=== PATIENT | female | born 1945 | race Caucasian/White ===

== ENCOUNTER 2016-06-14 08:59 | Day surgery (SDC) | payer OTHER ==
[2016-06-07 11:37] VITALS: BMI 46.0
--- NOTE | 2016-06-07 12:13 | PAT Medication Instructions ---
Service Date Jun 07, 2016. Current Home Medication List Beclomethasone Dip (Qvar), 2 PUFF INH BID Bupropion (Wellbutrin Sr), 150 MG PO QAM Cholecalciferol (Vitamin D 1000 Unit), 1,000 INTER.UNIT PO HS Docusate Sodium (Colace), 1 CAP PO BID PRN for Constipation Ipratropium [place] Hfa (Atrovent Hfa), 2 PUFFS INH Q4H PRN for SOB/Wheezing Isosorbide Mononitrate Ext Rel (Imdur Ext Rel), 60 MG PO QAM Magnesium Oxide (Mag-Ox), 400 MG PO QAM Misc Natural Products (Fiber 7), 2 TSP PO QAM Multiple Minerals W/ Vitamins (Citracal Plus), 1 TAB PO BID Multivitamin (Multivitamin), 1 TAB PO QAM Nitroglycerin (Nitrostat), 0.4 MG UT UD PRN for Chest Pain Omeprazole (Prilosec), 40 MG PO BID Trazodone Hcl (Trazodone), 50 MG PO HS Trazodone Hcl (Trazodone), 100 MG PO HS Triamterene/Hctz (Triamterene/Hctz 37.5-25MG), 0.5 TAB PO QAM Verapamil (Verelan Pm), 300 MG PO HS Vortioxetine HBr (Trintellix), 20 MG PO HS Medication Instructions For Your Scheduled Surgery - Hold the following medications the morning of surgery: Triamterene/Hctz (Triamterene/Hctz 37.5-25MG), 0.5 TAB PO QAM Multiple Minerals W/ Vitamins (Citracal Plus), 1 TAB PO BID Multivitamin (Multivitamin), 1 TAB PO QAM Misc Natural Products (Fiber 7), 2 TSP PO QAM Magnesium Oxide (Mag-Ox), 400 MG PO QAM Docusate Sodium (Colace), 1 CAP PO BID PRN for Constipation - Take the following medications the morning of surgery with a sip of water: Omeprazole (Prilosec), 40 MG PO BID Nitroglycerin (Nitrostat), 0.4 MG UT UD PRN for Chest Pain Isosorbide Mononitrate Ext Rel (Imdur Ext Rel), 60 MG PO QAM Ipratropium [place] Hfa (Atrovent Hfa), 2 PUFFS INH Q4H PRN for SOB/Wheezing Bupropion (Wellbutrin Sr), 150 MG PO QAM Beclomethasone Dip (Qvar), 2 PUFF INH BID - Take the following medications as scheduled the night before surgery: Verapamil (Verelan Pm), 300 MG PO HS Trazodone Hcl (Trazodone), 50 MG PO HS Trazodone Hcl (Trazodone), 100 MG PO HS Omeprazole (Prilosec), 40 MG PO BID Nitroglycerin (Nitrostat), 0.4 MG UT UD PRN for Chest Pain Multiple Minerals W/ Vitamins (Citracal Plus), 1 TAB PO BID Ipratropium [place] Hfa (Atrovent Hfa), 2 PUFFS INH Q4H PRN for SOB/Wheezing Docusate Sodium (Colace), 1 CAP PO BID PRN for Constipation Cholecalciferol (Vitamin D 1000 Unit), 1,000 INTER.UNIT PO HS Beclomethasone Dip (Qvar), 2 PUFF INH BID Vortioxetine HBr (Trintellix), 20 MG PO HS If you have any questions please call us at [phone] (Briana Gustafson PA-C) or [phone] or [phone]
[2016-06-07 12:41] LABS: BASO % 0.4 %; BASO ABS # 0.03 K/uL (0-0.2); COMPLETE YES; EOS % 2.2 %; HEMATOCRIT 36.1 % (37-47); IG% 0.1 %; LYMPH % 16.5 %; LYMPH ABS # 1.21 K/uL (1.2-3.4); MEAN CELL VOLUME 89.8 fL (80-100); MEAN CORPUSCULAR HEMOGLOBIN 29.9 pg (25-34); MEAN CORPUSCULAR HGB CONC 33.2 g/dl (32-36); MEAN PLATELET VOLUME 10.8 fL (7.4-10.4); MONO % 10.2 %; NEUT % 70.6 %; PLATELET COUNT 193 K/uL (130-400); RED BLOOD COUNT 4.02 M/uL (4.2-5.4); WHITE BLOOD COUNT 7.35 K/uL (4.8-10.8)
[2016-06-07 12:49] LABS: URINE APPEARANCE CLEAR (CLEAR); URINE BILIRUBIN NEG (NEG); URINE COLOR YELLOW; URINE NITRITE NEG (NEG); URINE PH 6.5 (4.5-7.5); URINE SPECIFIC GRAVITY 1.017 (1.000-1.030); UROBILINOGEN NEG (NEG)
[2016-06-07 12:53] LABS: PARTIAL THROMBOPLASTIN RATIO 1.1; PROTHROMBIN TIME (PATIENT) 10.7 SECONDS (9.0-12.0)
[2016-06-07 12:57] LABS: MANUAL MICROSCOPIC REQUIRED? NO; REVIEW REQ? NO
[2016-06-07 13:06] LABS: BUN/CREATININE RATIO 19.6 (10-20); CREATININE 0.9 mg/dl (0.60-1.20); POTASSIUM 3.6 mmol/L (3.5-5.1)
--- NOTE | 2016-06-13 18:17 | HISTORY & PHYSICAL EXAMINATION ---
DATE OF ADMISSION: 06/14/2016 SUBJECTIVE CHIEF COMPLAINT: Right foot pain. HISTORY OF PRESENT ILLNESS: This is a patient who has been treated for sometime with right foot osteoarthritis. She has been treated with shoe wear modification, bracing, activity modifications, anti-inflammatory medication and steroid injections; however, she has failed conservative management and she is now being set up for surgical treatment. PAST MEDICAL HISTORY: Coronary artery disease, asthma, hypertension, aortic valve sclerosis, depression, esophageal reflux, generalized anxiety disorder, hyperlipidemia, history of palpitations, spinal stenosis and also morbid obesity. PAST SURGICAL HISTORY: Appendectomy, back surgery, mastectomy and later breast reconstruction, cholecystectomy, knee replacement, sinus surgery and tubal ligation. FAMILY HISTORY: Noncontributory. SOCIAL HISTORY: The patient has an occasional alcohol drink. She is a former smoker. CURRENT MEDICATIONS: Qvar, Symbicort, baby aspirin, isosorbide, nitroglycerin, bupropion, trintellix, omeprazole, Citracal plus vitamin D, magnesium oxide, triamterene/HCTZ, Colace, verapamil, Mobic, multivitamin and trazodone. ALLERGIES: CELEBREX, PERCOCET, STATINS AND VENTOLIN. OBJECTIVE PHYSICAL EXAMINATION: GENERAL: The patient is alert and oriented x3. She is in no acute distress. She is a well-dressed, well-nourished 70-year-old female. Her affect is appropriate. CARDIOVASCULAR: Has an irregularly irregular heartbeat with a 1/6 systolic ejection murmur. LUNGS: Clear to auscultation bilateral with decreased breath sounds throughout. Dorsalis pedis, posterior tib pulses are +2/4. Cap refill is less than 2 seconds. LYMPHATIC: There is no evidence of any swollen lymph nodes. MUSCULOSKELETAL: The patient has an antalgic gait favoring the right lower extremity. Upon inspection of right lower extremity, there is swelling noted of the right mid foot. There is no ecchymosis, no erythema noted. There appears to be bony deformity of the mid foot on the right side. On palpation there is tenderness of the first, second and third tarsometatarsal joints. The patient has decrease in strength and range of motion secondary to pain. SKIN: There are no scars, rashes or ulcers noted. NEUROLOGIC: Sensation is normal intact distally, right lower extremity. X-RAY EXAM: Multiple views of the right foot demonstrate severe osteoarthritis of the first, second and third tarsometatarsal joints. There is also osteoarthritic changes of the first, second and third intercuneiform joints. ASSESSMENT AND DIAGNOSES: 1. Right mid foot osteoarthritis, particularly of the first, second and third tarsometatarsal joints and the first, second and third intercuneiform joints. 2. Achilles contracture. PLAN: The above assessment was discussed with the patient. At this time, it is recommended the patient undergo a right foot first, second and third tarsometatarsal joint fusions; first, second and third intercuneiform joint fusions; percutaneous tendo Achilles lengthening and application of platelet rich plasma. All potential risks, benefits, complications, alternatives and rehab have been discussed with the patient. At this time, she wishes to proceed with the surgery as indicated and she will be scheduled for the surgery on 06/14/2016. AZALEA
[~2016-06-14] VITALS: Ht 142.2 cm; Wt 95.3 kg
[~2016-06-14 08:59] MED LIST: ATROPINE SULFATE 0.1 MG/ML 5ML SYR IV PRN; BUPIVACAINE 0.25% 30 ML VIAL ONE; BUPR-79 PO; CEFAZOLIN 2000 MG/60 ML D5W IV SCH; CHOL100027 PO; DOCU-94 PO; EpHEDrine SULFATE INJ 50 MG/ML AMP IV PRN; IPRA17AE2 INH; ISOS60TA25 PO; LACTATED RINGER'S 1000ML 1,000 ML IV SCH; MAGN400T5 PO; MULT-506 PO; MULT-663 PO; NTRGSL/4 UT; OMEP40CA41 PO; ONDANSETRON INJ 2 MG/ML 2 ML VIAL IV PRN; QVRINH40 INH; TRAZ100T29 PO; TRAZ50TA35 PO; TRIATAB3 PO; VERA1CAP7 PO; VORT1TAB3 PO; [UNRECOGNIZED DRUG - CODE] PO
[2016-06-14 09:16] VITALS: BP 136/57; PULSE 60; TEMP 36.3; O2SAT 96; Ht 142.2 cm; Wt 95.3 kg
[2016-06-14] MEDS ORDERED: FENTANYL CITRATE INJ 50 MCG/1 ML 2 ML VIAL ONE (09:33)
[2016-06-14] MEDS ORDERED: NEOSTIGMINE METHYLSULFATE 5 MG/5 ML SYR ONE (09:33)
[2016-06-14] MEDS ORDERED: PROPOFOL IV EMULSION 10 MG/ML 20 ML VIAL IV ONE (09:33)
[2016-06-14] MEDS ORDERED: GLYCOPYRROLATE INJ 0.2 MG/ML VIAL ONE ×2 (09:33→12:59)
[2016-06-14] MEDS ORDERED: ONDANSETRON INJ 2 MG/ML 2 ML VIAL ONE (09:33)
[2016-06-14] MEDS ORDERED: MIDAZOLAM HCL 1 MG/ML 2ML VIAL ONE (09:33)
[2016-06-14] MEDS ORDERED: LIDOCAINE HCL 2% 2 ML VIAL (20MG/ML) ONE (09:33)
[2016-06-14] MEDS ORDERED: ROCURONIUM BROMIDE 10 MG/ML 5 ML VIAL ONE (09:33)
--- NOTE | 2016-06-14 10:43 | History & Physical Bridge Note ---
H&P Re-Evaluation Bridge Note: I have examined the patient, reviewed the History & Physical and in the interval since the performance of the History & Physical I have noted the following changes of clinical significance: No changes noted
[2016-06-14] MEDS ORDERED: BACITRACIN 50000 UNIT VIAL ONE (11:16)
[2016-06-14] MEDS ORDERED: BUPIVACAINE/EPINEPHRINE 0.5% MPF 1:200,000 30 ML VIAL ONE (11:16)
[2016-06-14] MEDS ORDERED: BUPIVACAINE 0.5 % 5 MG/1 ML MPF 30ML VIAL ONE (11:16)
[2016-06-14] MEDS ORDERED: CALCIUM CHLORIDE 10% 10 ML SYR ONE (12:20)
[2016-06-14] MEDS ORDERED: THROMBIN 5000 UNITS KIT ONE (12:20)
[2016-06-14] MEDS ORDERED: HYDROmorphone INJ 1 MG/ML SYR ONE ×2 (14:53→15:09)
[2016-06-14] MEDS: HYDROmorphone INJ 1 MG/ML SYR IV PRN ×4 (14:58→15:20)
--- NOTE | 2016-06-14 15:02 | DIAGNOSTIC IMAGING REPORT ---
INTRAOPERATIVE FLUOROSCOPIC IMAGES OF THE RIGHT FOOT CLINICAL HISTORY: Right first, second and third fusion. COMPARISON STUDY: No previous studies for comparison. Fluoroscopy time: 40 seconds. FINDINGS: Skin jessica overlying the Achilles are noted. There is evidence for a right fifth metatarsal osteotomy with screw fixation. This may be old. There is a medial plate extending across the right first tarsometatarsal joint. There is fusion of the right first, second and third tarsometatarsal joints. Hardware is intact. There are no unexpected radiopaque foreign bodies. IMPRESSION: Postsurgical findings consistent with fusion of the right first, second and third tarsometatarsal joints. Electronically signed by: Pio Ospina M.D. 06/14/2016 3:00 PM Dictated Date/Time: 06/14/2016 2:58 PM
--- NOTE | 2016-06-14 15:03 | [facility] Post Operative Brief Note ---
Immediate Operative Summary Operative Date Jun 14, 2016. Pre-Operative Diagnosis 1. Right mid foot DJD of the first, second and third tarsometatarsal joints. 2. DJD of first, second and third intercuneiform joint 2. Achilles contracture Post-Operative Diagnosis Same as pre-operative Procedure(s) Performed Right foot 1,2,3 Tarsometatarsal Joint Fusions; 1,2,3 Intercuneiform Joint Fusions; Percutaneous Tendon Achilles Lenghtening; Application Platelet Rich Plasma Surgeon Dr. Fransico Garcia, DO Hogshead Stripper Surgeon(s) Dane Mata PA-C Estimated Blood Loss 10ml Findings See Dict Specimens None per surgeon Drains None Anesthesia GLMA w/ popliteal block Complication(s) None Disposition Recovery Room / PACU
--- NOTE | 2016-06-14 15:07 | Anesthesiology Progress Note ---
Anesthesia Post Op Note Date & Time Jun 14, 2016 at 15:07 Vital Signs Pain Intensity: 6 Vital Signs Past 12 Hours Date Time Temp Pulse Resp B/P Pulse Ox O2 Delivery O2 Flow Rate FiO2 06/14/16 09:16 36.3 60 20 136/57 96 Room Air Notes Mental Status: alert / awake / arousable, participated in evaluation Pt Amnestic to Procedure: Yes Nausea / Vomiting: adequately controlled Pain: adequately controlled Airway Patency, RR, SpO2: stable & adequate BP & HR: stable & adequate Hydration State: stable & adequate Anesthetic Complications: no major complications apparent
--- NOTE | 2016-06-14 15:10 | Discharge Instructions ---
Discharge Instructions Admission Reason for Admission: Right Ankle/Foot Osteoarthritis Discharge Discharge Diagnosis / Problem: Right midfoot DJD, achilles contracture Discharge Goals Goal(s): Decrease discomfort, Improve function Activity Recommendations Activity Limitations: per Instructions/Follow-up section . Instructions / Follow-Up Instructions / Follow-Up ACTIVITY RECOMMENDATIONS: Limitations: No weight bearing to affected limb at all times. SPECIAL CARE INSTRUCTIONS: * Some drainage onto the dressing is normal and is no cause for alarm. * Some swelling is natural especially after walking. * When resting, keep your foot elevated above the level of your heart. * Call [facility] if you notice: -Increased drainage -Fever over 101 degrees F -Severe constant pain BANDAGE: * Leave bandage/cast in place unless otherwise directed. * Keep bandage/cast dry at all times. FOLLOW UP VISIT WITH DR. VELOZ If appointment is not already scheduled: Please call [facility] after you get home today to schedule a follow-up appointment for [address] Veloz at . Current Hospital Diet Patient's current hospital diet: Discharge Diet Recommended Diet: AHA Diet (Heart Healthy) Procedures Procedures Performed: Right foot 1,2,3 Tarsometatarsal Joint Fusions; 1,2,3 Intercuneiform Joint Fusions; Percutaneous Tendon Achilles Lenghtening; Application Platelet Rich Plasma Pending Studies Studies pending at discharge: no Medical Emergencies . Who to Call and When: Medical Emergencies: If at any time you feel your situation is an emergency, please call 911 immediately. . Non-Emergent Contact Non-Emergency issues call your: Primary Care Provider Call Non-Emergent contact if: temperature is above 100.5, your pain is not controlled, wound has increased drainage, wound has increased redness, wound has increased pain . "Provider Documentation" section prepared by Fransico Veloz. VTE Core Measure Inpt VTE Proph given/why not?: Other Anticoagulation (EC ASA 81mg PO daily)
[2016-06-14] MEDS ORDERED: HYDROCODONE/ACETAMOPHEN 5/325MG TAB PO PRN (15:15)
--- NOTE | 2016-06-14 15:35 | DIAGNOSTIC IMAGING REPORT ---
RIGHT FOOT MIN 3 VIEWS ROUTINE CLINICAL HISTORY: post-op Right COMPARISON STUDY: Right foot 06/14/2016. FINDINGS: Overlying splint material obscures the majority foot. There are cortical plates, jessica and screws across the first through third tarsometatarsal joints. There is also screw through an old healed fracture of the right fifth metatarsal. The hardware appears intact. IMPRESSION: Postoperative changes at the tarsometatarsal joint. The hardware appears intact. Electronically signed by: Mihir Mcneill M.D. 06/14/2016 3:34 PM Dictated Date/Time: 06/14/2016 3:33 PM
[2016-06-14 15:47] VITALS: BP 133/69; PULSE 64; TEMP 36.7; O2SAT 98
[2016-06-14 16:15] VITALS: BP 143/65; PULSE 74; O2SAT 97
[2016-06-14 16:45] VITALS: BP 142/64; PULSE 63; TEMP 36.7; O2SAT 96
--- NOTE | 2016-06-14 17:13 | OPERATIVE REPORT ---
DATE OF OPERATION: 06/14/2016 PREOPERATIVE DIAGNOSES: 1. Right mid foot degenerative joint disease involving the first, second and third tarsometatarsal joints. 2. Degenerative joint disease of the first, second and third intercuneiform joints. 3. Achilles contracture. POSTOPERATIVE DIAGNOSES: Same. PROCEDURES: 1. Right foot fusion of the first, second, and third tarsometatarsal joints. 2. Fusion of first, second and third intercuneiform joints. 3. Percutaneous tendon Achilles lengthening. 4. Application platelet rich plasma concentrate. SURGEON: Dr. Garcia. MACHINE BANDER AND CELLOPHANER: Dane Mata PA-C who was present for patient positioning, sterile prep and drape, management of retractors and instruments. He was present through the critical portions of the case including wound closure, application of sterile dressing and transport of the patient to recovery. ANESTHESIA: General LMA with popliteal block. SPECIMENS: None. DRAINS: None. COMPLICATIONS: None. BLOOD LOSS: 10 mL. PERTINENT HISTORY OF PRESENT ILLNESS: This is a 70-year-old woman who had ongoing pain and deformity of her right foot. This has been treated with shoewear modification, bracing, activity modifications, anti-inflammatory medications, and steroid injections. She had failed conservative management and was then scheduled for surgery as indicated. All potential risks, benefits, complications, alternatives, rehab, potential for incomplete relief of symptoms, need for further surgery, DVT, PE, , persistent pain, swelling, scarring, weakness, neurovascular injury, wound complications, hardware failure, nonunion, malunion or bone fracture were discussed with the patient. The patient decided to proceed with the procedure as indicated. DESCRIPTION OF PROCEDURE: After popliteal block was administered in the preop holding area, the patient was taken to the operative suite, placed supine on the operating room table. After reviewing consent and identification of proper operative site, the patient was anesthetized, LMA was placed. Tourniquet was placed high on the right thigh over cast padding; however, this pneumatic tourniquet was not used during the case. Next, the right lower extremity was then sterilely prepped and draped in usual fashion, elevated and exsanguinated with Esmarch bandage. Esmarch tourniquet was applied over sterile surgical towel at the level of the ankle. Next, the foot was held in neutral dorsiflexion and percutaneous tendo Achilles lengthening was performed with an 11 blade scalpel. Three small percutaneous incisions were closed with a skin stapler. Next, a 15 blade scalpel was used to make an incision over the dorsal medial aspect of the first tarsometatarsal joint. This incision was then deepened through the subcutaneous tissue. Meticulous hemostasis was achieved with electrocautery. Full thickness skin flaps were developed. The branch of the saphenous vein was then retracted and protected. The capsule of the first tarsometatarsal joint was then opened and elevated, preserved when possible. Next, the articular surfaces were then denuded with curette and rongeur down to subchondral bone and then a 1.5 mm drill bit was then used to make multiple drill holes into the joint surfaces, was irrigated with sterile normal saline and a 4 mm osteotome and mallet were used to fish scale the joint surfaces. Next, the first intercuneiform joint was then opened with a 15 blade scalpel and a curette and rongeur were used to remove any residual articular cartilage down to subchondral bone. This was irrigated with sterile normal saline and then drilled with a 1.5 mm drill bit and then fish scaled with a 4 mm osteotome and mallet. Next, an incision was made on the dorsum of the foot to the base of the second and third tarsometatarsal joints. This incision was then deepened through the subcutaneous tissue and meticulous hemostasis was achieved with electrocautery. Full thickness skin flaps developed and the dorsal fascia was then incised in line with the skin incision, retracted, and protected. Next, the extensor tendons were then retracted and protected. Next, the second tarsometatarsal joint was then identified and then opened with a small lamina hardboard factory worker. Curette and rongeur were used to remove any of the remaining articular cartilage down to the level of subchondral bone. This joint was then prepared for further with irrigation and then drilling with a 1.5 mm drill bit and fish scaling with a 4.0 mm osteotome and mallet. Next, the third tarsometatarsal joint was then opened with a cervical lamina hardboard factory worker and the joint surfaces were then prepared by removing any of the residual articular cartilage with curette and rongeur down to subchondral bone and this joint was then irrigated with sterile normal saline. Next, a 1.5 mm drill bit was then used to make multiple drill holes in the joint and then the joint was then fish scaled using a 4.0 mm osteotome and mallet. Next, the joint between the second and third cuneiforms was then opened and then repaired in a similar fashion using a curette and rongeur down to subchondral bone, irrigation of sterile normal saline, multiple drill holes were made with a 1.5 mm drill bit and then the joint was then fish scaled with a osteotome and mallet. Next, the venous blood was then harvested from the patient and spun in a proprietary centrifuge and then the platelet rich plasma concentrate was then extracted. At this point, platelet rich plasma concentrate was then injected onto the joint surfaces of the planned joint effusions of the first, second and third tarsometatarsal joints and the first, second and third intercuneiform joints. Next, the joints to be fused were then compressed and pinned with a 1.25 mm guide pins particularly the first, second and third tarsometatarsal joints and then one heading from medial to lateral across the inner cuneiforms. Next, a 4.0 cannulated screws were placed crossing the first, second and third tarsometatarsal joints and a fourth screw was placed crossing the first, second and third cuneiform bones under live fluoroscopic assistance. Next, a medially based first tarsometatarsal joint fusion plate was applied, tacked in place provisionally, the distal locking screws were placed into the first metatarsal base, the plate was then compressed using compression tool and then the proximal screws were placed in a locking fashion. The joint was compressed and well aligned. This was performed under live fluoroscopic assistance. After this was completed, next two 15 mm Synthes jessica were placed through the dorsal incision first the second tarsometatarsal joint and after this was impacted in place to stabilize and compress the second tarsometatarsal joint, a similar 15 mm compression staple was placed on the third tarsometatarsal joint impacted in place with a mallet and insertion tool. After this was completed, mid foot fusion was completed, final x-rays obtained in AP and lateral projections followed by injection of further platelet rich plasma concentrate at the fusion site and in the dorsal soft tissue. Next, the medial soft tissues then closed using 3-0 Vicryl, deep soft tissues dorsally were closed using 3-0 Vicryl, the dermis was closed using buried interrupted 3-0 Vicryl in both incisions followed by closure of the skin with 4-0 nylon. The remainder of the platelet rich plasma and then the platelet poor plasma was injected along the incision sites to aid in soft tissue healing. Next, the sterile compressive dressing was applied consisting of Acticoat, sterile 4 x 4s, and then a Webril followed by placement of a bulky Jon Salas plaster splint placed in neutral dorsiflexion and overwrapped with an Dominic wrap. The tourniquet was then released. The patient was awakened and taken to recovery in stable condition. I attest to the content of the Intraoperative Record and any orders documented therein. Any exceptions are noted below. MTDD
[2016-10-03] MEDS ORDERED: BRIO INH (08:21)
[2016-10-03] MEDS ORDERED: CLR10 PO (08:21)
[2016-10-03] MEDS ORDERED: QUET1TAB30 PO (08:21)
[2016-11-07] MEDS ORDERED: MONT1TAB3 PO (09:31)
== END 2016-06-14 17:27 | disposition home or self-care (01) ==
LOC: C.ACU 08:59
PROVIDERS: ATTEND Orthopaedic Surgery Sports Medicine
DX: M19.071 Primary osteoarthritis, right ankle and foot (principal); M67.01 Short Achilles tendon (acquired), right ankle; Z87.891 Personal history of nicotine dependence; Z79.899 Other long term (current) drug therapy; M79.671 Pain in right foot; I10 Essential (primary) hypertension; I25.10 Atherosclerotic heart disease of native coronary artery without angina pectoris
CPT/HCPCS: 0232T; 27650; 28730

== ENCOUNTER 2016-09-05 12:28 | Observation (INO) | payer OTHER ==
[~2016-09-05] VITALS: Ht 147.3 cm; Wt 89.0 kg
[~2016-09-05 12:28] MED LIST changes: -ATROPINE SULFATE 0.1 MG/ML 5ML SYR IV PRN; -BUPIVACAINE 0.25% 30 ML VIAL ONE; -CEFAZOLIN 2000 MG/60 ML D5W IV SCH; -EpHEDrine SULFATE INJ 50 MG/ML AMP IV PRN; -LACTATED RINGER'S 1000ML 1,000 ML IV SCH; -ONDANSETRON INJ 2 MG/ML 2 ML VIAL IV PRN
[2016-09-05] MEDS ORDERED: ONDANSETRON INJ 2 MG/ML 2 ML VIAL IV STA (12:52)
[2016-09-05] MEDS ORDERED: SODIUM CHLORIDE 0.9% 1000ML 1,000 ML IV STA (12:52)
[2016-09-05] MEDS ORDERED: SODIUM CHLORIDE 0.9% 1000ML 1,000 ML IV ONE (12:52)
[2016-09-05] MEDS ORDERED: SYMIN160 INH (13:14)
[2016-09-05] MEDS ORDERED: ASPI81TA28 PO (13:14)
[2016-09-05] MEDS ORDERED: ATRIN INH (13:14)
[2016-09-05] MEDS ORDERED: DOXY-300 PO (13:14)
--- NOTE | 2016-09-05 13:15 | DIAGNOSTIC IMAGING REPORT ---
CHEST ONE VIEW PORTABLE CLINICAL HISTORY: CHEST PAIN dyspnea COMPARISON STUDY: 08/06/2015 FINDINGS: The bones soft tissues and hemidiaphragms are normal. The cardiomediastinal silhouette is normal. The lungs are clear. The pulmonary vasculature is normal. IMPRESSION: Negative chest. Electronically signed by: Cirilo Edwards M.D. 09/05/2016 1:14 PM Dictated Date/Time: 09/05/2016 1:13 PM
[2016-09-05 13:30] LABS: BASO % 0.4 %; BASO ABS # 0.03 K/uL (0-0.2); COMPLETE YES; EOS % 1.7 %; HEMATOCRIT 41.4 % (37-47); IG% 0.3 %; LYMPH % 20.8 %; MEAN CELL VOLUME 89.8 fL (80-100); MEAN CORPUSCULAR HEMOGLOBIN 29.7 pg (25-34); MEAN CORPUSCULAR HGB CONC 33.1 g/dl (32-36); MEAN PLATELET VOLUME 10.6 fL (7.4-10.4); MONO % 7.2 %; NEUT % 69.6 %; PLATELET COUNT 222 K/uL (130-400); RED BLOOD COUNT 4.61 M/uL (4.2-5.4); WHITE BLOOD COUNT 7.22 K/uL (4.8-10.8)
[2016-09-05 13:47] LABS: BUN/CREATININE RATIO 20.4 (10-20); CALCIUM 9.2 mg/dl (8.5-10.1); CREATININE 0.86 mg/dl (0.60-1.20); POTASSIUM 3.7 mmol/L (3.5-5.1)
[2016-09-05 13:53] LABS: CKMB/CK RATIO 0.9 (0-3.0)
[2016-09-05] MEDS ORDERED: ASPIRIN 81 MG CHEW PO STA (14:30)
[2016-09-05] MEDS ORDERED: MoRPHine SULFATE 2 MG/ML CARP IV PRN (16:00)
[2016-09-05] MEDS ORDERED: POLYETHYLENE (MIRALAX) 17 GM PACK PO PRN (16:00)
[2016-09-05] MEDS ORDERED: ALUMINUM/MAGNESIUM/SIMETH (MAALOX MAX) 30 ML UDC PO PRN (16:00)
[2016-09-05] MEDS ORDERED: NITROGLYCERIN 0.4 MG SL PER TAB CHARGE SL PRN (16:00)
[2016-09-05] MEDS ORDERED: IPRATROPIUM BROMIDE HFA INHALER INH PRN (16:00)
[2016-09-05] MEDS ORDERED: ONDANSETRON INJ 2 MG/ML 2 ML VIAL IV PRN (16:00)
[2016-09-05] MEDS ORDERED: ACETAMINOPHEN 325 MG TAB PO PRN (16:00)
[2016-09-05] MEDS ORDERED: MAGNESIUM HYDROXIDE SUSP 30 ML UDC PO PRN (16:00)
[2016-09-05] MEDS ORDERED: IV FLUIDS COMPLETED PRN (16:15)
--- NOTE | 2016-09-05 16:19 | Medical Student: [facility] ---
Med Student History & Physical Date & Time of Service: September 05, 2016 at 15:55 Chief Complaint: Throwing Up - Pain Down My Arms Primary Care Physician: Meena Oleary M.D. History of Present Illness Source: patient, family, hospital records This is a 71 year old female who presents to the emergency room following an episode of nausea and vomiting this morning with accompanying bilateral arm pain. The nausea and vomiting began this morning as she was getting out of the shower, around 0830. She reports that she had not eaten anything and was not exerting herself. This lasted for an hour, during which she was retching and regurgitated mostly saliva and phlegm, with no stomach contents visible. The pain in her arms which began shortly after the onset of nausea was bilateral and she described it as a "vice flue lining dipper" which radiated down her arms. This pain lasted for several hours and still persists in her right arm but to a lesser degree. She also had a brief episode of chest tightness en route to the hospital , which she says is similar to past episodes of angina she has experienced. This resolved within minutes. She did not take any medications to relieve any of her symptoms. She also denies any exacerbating factors. She denies shortness of breath, sweating. No other symptoms to report. Past Medical/Surgical History Medical Problems: Prinzmetal angina Depression HTN GERD Asthma Surgical hx: Cholecystectomy Ectopic removal Bilateral knee replacements Foot surgery Low back surgery Family History Father: coronary artery disease, heart disease Mother: no pertinent history Sibling(s): no pertinent history Grandfather: no pertinent history Grandmother: diabetes Social History Smoking Status: Former Smoker (quit 30 years ago) Smokeless Tobacco Use: No Alcohol Use: rarely Drug Use: none Marital Status: Housing status: lives alone Occupational Status: employed Immunizations History of Influenza Vaccine: Yes History of Tetanus Vaccine?: Yes History of Pneumococcal: No History of Hepatitis B Vaccine: Yes Allergies Coded Allergies: Adhesives (Unverified Allergy, Unknown, SOME TAPE BLISTERS-PAPER TAPE OK, 06/14/16) Celecoxib (Verified Allergy, Unknown, RASH,SWOLLEN FEET/HANDS, 06/14/16) Oxycodone (Verified Adverse Reaction, Severe, GI SYMPTOMS, 06/14/16) Rosuvastatin (Verified Adverse Reaction, Severe, MUSCLE PAIN/ABNORMAL LABS , 06/14/16) Albuterol (Verified Adverse Reaction, Unknown, CHEST PAIN, 06/14/16) Medications Aspirin (Aspirin Ec), 81 MG PO DAILY Budesonide/Formoterol Fumarate (Symbicort 160/4.5 Inhaler ), 2 PUFFS INH BID Bupropion (Wellbutrin Sr), 150 MG PO QAM Cholecalciferol (Vitamin D 1000 Unit), 1,000 INTER.UNIT PO HS Docusate Sodium (Colace), 1 CAP PO BID PRN for Constipation Doxycycline (Monohydrate) (Doxycycline), 100 MG PO BID Ipratropium Branch (Atrovent Hfa), 2 PUFFS INH QID PRN for SOB/Wheezing Isosorbide Mononitrate Ext Rel (Imdur Ext Rel), 60 MG PO QAM Magnesium Oxide (Mag-Ox), 400 MG PO QAM Multiple Minerals W/ Vitamins (Citracal Plus), 1 TAB PO BID Multivitamin (Multivitamin), 1 TAB PO QAM Nitroglycerin (Nitrostat), 0.4 MG UT UD PRN for Chest Pain Omeprazole (Prilosec), 40 MG PO BID Trazodone Hcl (Trazodone), 50 MG PO HS Trazodone Hcl (Trazodone), 100 MG PO HS Triamterene/Hctz (Triamterene/Hctz 37.5-25MG), 0.5 TAB PO QAM Verapamil (Verelan Pm), 300 MG PO HS Vortioxetine HBr (Trintellix), 20 MG PO HS Review of Systems Constitutional: No chills, No fever, No sweats Eyes: No worsening of vision ENT: No hearing loss Respiratory: + cough, + wheezing Cardiovascular: + chest pain, + edema (non-pitting worse at end of day), No orthopnea Abdomen: + nausea, + vomiting, No pain Genitourinary - Female: No dysuria, No urinary frequency, No urinary urgency Neurologic: No numbness/tingling, No weakness Psychiatric: + depression symptoms Endocrine: No excessive urination Hematologic / Lymphatic: No night sweats Integumentary: No new/changing skin lesions Physical Exam Vital Signs (24 Hours) Date Time Temp Pulse Resp B/P Pulse Ox O2 Delivery O2 Flow Rate FiO2 09/05/16 14:46 57 18 178/85 95 09/05/16 12:42 36.6 78 22 149/76 95 Room Air General Appearance: WD/WN, no apparent distress Head: normocephalic, atraumatic Eyes: normal inspection ENT: hearing grossly normal, pharynx normal Neck: supple, no adenopathy, no JVD Respiratory/Chest: chest non-tender, lungs clear, normal breath sounds Cardiovascular: regular rate, rhythm, no edema, no gallop, + systolic murmur ( II/ systolic murmur) Abdomen/GI: normal bowel sounds, non tender, soft, no organomegaly Extremities/Musculoskelatal: no calf tenderness, + pedal edema (non-pitting of lower extremity) Neurologic/Psych: alert, oriented x 3 Skin: normal color, no rash Diagnostics Laboratory Results Results Past 24 Hours Test 09/05/16 12:52 09/05/16 13:15 09/05/16 13:22 Range/Units Creatine Kinase MB Ratio 0.9 0-3.0 White Blood Count 7.22 4.8-10.8 K/uL Red Blood Count 4.61 4.2-5.4 M/uL Hemoglobin 13.7 12.0-16.0 g/dL Hematocrit 41.4 37-47 % Mean Corpuscular Volume 89.8 80-100 fL Mean Corpuscular Hemoglobin 29.7 25-34 pg Mean Corpuscular Hemoglobin Concent 33.1 32-36 g/dl Platelet Count 222 130-400 K/uL Mean Platelet Volume 10.6 7.4-10.4 fL Neutrophils (%) (Auto) 69.6 % Lymphocytes (%) (Auto) 20.8 % Monocytes (%) (Auto) 7.2 % Eosinophils (%) (Auto) 1.7 % Basophils (%) (Auto) 0.4 % Neutrophils # (Auto) 5.03 1.4-6.5 K/uL Lymphocytes # (Auto) 1.50 1.2-3.4 K/uL Monocytes # (Auto) 0.52 0.11-0.59 K/uL Eosinophils # (Auto) 0.12 0-0.5 K/uL Basophils # (Auto) 0.03 0-0.2 K/uL RDW Standard Deviation 44.5 36.4-46.3 fL RDW Coefficient of Variation 13.5 11.5-14.5 % Immature Granulocyte % (Auto) 0.3 % Immature Granulocyte # (Auto) 0.02 0.00-0.02 K/uL Sodium Level 143 136-145 mmol/L Potassium Level 3.7 3.5-5.1 mmol/L Chloride Level 107 98-107 mmol/L Carbon Dioxide Level 32 21-32 mmol/L Anion Gap 4.0 3-11 mmol/L Blood Urea Nitrogen 18 7-18 mg/dl Creatinine 0.86 0.60-1.20 mg/dl Est Creatinine Clear Calc Drug Dose 55.0 ml/min Estimated GFR () 79.3 Estimated GFR (Non- 68.4 BUN/Creatinine Ratio 20.4 10-20 Random Glucose 100 70-99 mg/dl Calcium Level 9.2 8.5-10.1 mg/dl Total Bilirubin 0.4 0.2-1 mg/dl Direct Bilirubin 0.1 0-0.2 mg/dl Aspartate Amino Transf (AST/SGOT) 14 15-37 U/L Alanine Aminotransferase (ALT/SGPT) 18 12-78 U/L Alkaline Phosphatase 128 45-117 U/L Total Creatine Kinase 79 26-192 U/L Creatine Kinase MB 0.7 0.5-3.6 ng/ml Total Protein 7.2 6.4-8.2 gm/dl Albumin 3.7 3.4-5.0 gm/dl Lipase 176 73-393 U/L Bedside Troponin I 0.010 0-0.045 ng/ml CXR normal EKG 1st degree AV block with non-specific ST abnormalities. No acute changes noted. No prior EKG available Impression Assessment and Plan This is a 71 yo female who presents with nausea, vomiting, and bilateral squeezing arm pain concerning for cardiac causes. 1. Possible ACS: -Initial trops negative. Repeat in 6 hours and again in 12. -EKG shows no ST elevations or acute changes -CXR normal -Continue ASA 81 mg po daily -Continue home BP meds -Admit to telemetry for overnight observation -Consider exercise stress test tomorrow if trops all negative 2. GERD: -Pantoprazole 40 mg po daily 3. HTN: -Continue triamterene/HCTZ at home dose -Continue verapamil at home dose 4. Depression: -Continue Trintellix at home dose -Continue Wellbutrin at home dose -Continue trazodone for sleep 5. Asthma: -Continue home inhaler regimen -D/c doxycycline 6. DVT prophylaxis: -Heparin 5000 units subq q8h Level of Care Telemetry Resuscitation Status FULL RESUSCITATION Social Service Consult None Apply Note Total Time: Critical Care 30 - 74 minutes
[2016-09-05] MEDS ORDERED: DOCUSATE SODIUM 100 MG CAP PO PRN (16:30)
--- NOTE | 2016-09-05 16:31 | History and Physical ---
History & Physical Date & Time of Service: September 05, 2016 at 16:16 Chief Complaint: Throwing Up - Pain Down My Arms Primary Care Physician: Meena Oleary M.D. History of Present Illness Source: patient 71 year old female with history of Angina. Last heart cath 2010 nonocclusive CAD. Last stress test 07/2015. former smoker. Presented to ED with complaints of nausea, bilateral crushing arm pain and chest pressure. Started with nausea this am which progressed to bilateral crushing arm pain equal bilaterally. On route to ED started with chest pressure. No radiation of symptoms. No diaphoresis. No radiation of symptoms. No fever or chills. Was started on Doxycycline on Friday for poorly controlled asthma. Was on different antibiotic and steroids before that. EKG showed NSR with no significant ST changes. Chest X -ray clear. Initial Trop normal. Will be placed under hospitalist service. Past Medical/Surgical History Medical Problems: (1) Hypertension Status: Chronic Surgical Problems: (1) H/O laminectomy Status: Resolved (2) S/P knee replacement Status: Resolved Family History Cancer Diabetes mellitus Gallbladder disease Heart disease Hypertension Lung disease Social History Smoking Status: Former Smoker Alcohol Use: none Drug Use: none Marital Status: Occupational Status: employed Immunizations History of Influenza Vaccine: Yes History of Tetanus Vaccine?: Yes History of Pneumococcal: No History of Hepatitis B Vaccine: Yes Allergies Coded Allergies: Adhesives (Unverified Allergy, Unknown, SOME TAPE BLISTERS-PAPER TAPE OK, 06/14/16) Celecoxib (Verified Allergy, Unknown, RASH,SWOLLEN FEET/HANDS, 06/14/16) Oxycodone (Verified Adverse Reaction, Severe, GI SYMPTOMS, 06/14/16) Rosuvastatin (Verified Adverse Reaction, Severe, MUSCLE PAIN/ABNORMAL LABS , 06/14/16) Albuterol (Verified Adverse Reaction, Unknown, CHEST PAIN, 06/14/16) Home Medications Scheduled Aspirin (Aspirin Ec), 81 MG PO DAILY Budesonide/Formoterol Fumarate (Symbicort 160/4.5 Inhaler ), 2 PUFFS INH BID Bupropion (Wellbutrin Sr), 150 MG PO QAM Cholecalciferol (Vitamin D 1000 Unit), 1,000 INTER.UNIT PO HS Doxycycline (Monohydrate) (Doxycycline), 100 MG PO BID Isosorbide Mononitrate Ext Rel (Imdur Ext Rel), 60 MG PO QAM Magnesium Oxide (Mag-Ox), 400 MG PO QAM Multiple Minerals W/ Vitamins (Citracal Plus), 1 TAB PO BID Multivitamin (Multivitamin), 1 TAB PO QAM Omeprazole (Prilosec), 40 MG PO BID Trazodone Hcl (Trazodone), 50 MG PO HS Trazodone Hcl (Trazodone), 100 MG PO HS Triamterene/Hctz (Triamterene/Hctz 37.5-25MG), 0.5 TAB PO QAM Verapamil (Verelan Pm), 300 MG PO HS Vortioxetine HBr (Trintellix), 20 MG PO HS Scheduled PRN Docusate Sodium (Colace), 1 CAP PO BID PRN for Constipation Ipratropium Kaplan (Atrovent Hfa), 2 PUFFS INH QID PRN for SOB/Wheezing Nitroglycerin (Nitrostat), 0.4 MG UT UD PRN for Chest Pain Review of Systems Constitutional: No chills, No fatigue, No fever, No problem reported, No sweats , No weakness, No weight loss Eyes: No diplopia, No discharge, No eye pain, No problem reported, No redness, No worsening of vision ENT: No dental problems, No hearing loss, No nasal symptoms, No problem reported, No sore throat, No tinnitus, No trouble swallowing, No unusual epistaxis Respiratory: No cough, No dyspnea at rest, No dyspnea on exertion, No hemoptysis, No problem reported, No shortness of breath, No sputum, No wheezing Cardiovascular: + chest pain, No PND, No claudication, No edema, No orthopnea, No palpitations, No problem reported Abdomen: + nausea, No GI bleeding, No constipation, No diarrhea, No pain, No problem reported, No vomiting Musculoskeletal: No calf pain, No joint pain, No muscle pain, No problem reported, No swelling Genitourinary - Female: No dysmenorrhea, No dysuria, No hematuria, No menorrhagia, No metrorrhagia, No , No problem reported, No rash, No urinary frequency, No urinary incontinence, No urinary retention, No urinary urgency, No vaginal bleeding, No vaginal discharge, No vaginal itching, No vulvodynia Neurologic: No balance problems, No memory loss, No numbness/tingling, No paralysis, No problem reported, No vertigo, No weakness Psychiatric: No anhedonism, No anxiety, No depression symptoms, No insomnia, No problem reported, No substance abuse Endocrine: No excessive thirst, No excessive urination, No fatigue, No problem reported Hematologic / Lymphatic: No abnormal bleeding/bruising, No clotting problems, No night sweats, No problem reported, No swollen lymph nodes Integumentary: No bleeding, No color change, No itch, No new/changing skin lesions, No problem reported, No rash Allergic / Immunologic: No environmental allergies, No food allergies, No frequent infections, No hives, No pet sensitivities, No poor healing, No problem reported, No prolonged convalescence, No seasonal allergies Physical Exam Vital Signs Date Time Temp Pulse Resp B/P Pulse Ox O2 Delivery O2 Flow Rate FiO2 09/05/16 14:46 57 18 178/85 95 09/05/16 12:42 36.6 78 22 149/76 95 Room Air General Appearance: WD/WN, no apparent distress Head: normocephalic, atraumatic Eyes: normal inspection, PERRL, EOMI, sclerae normal ENT: normal ENT inspection, pharynx normal Neck: supple Respiratory/Chest: chest non-tender, lungs clear, normal breath sounds Cardiovascular: regular rate, rhythm, no edema, no gallop, no JVD, no murmur Abdomen/GI: normal bowel sounds, non tender, soft, no organomegaly Back: normal inspection Extremities/Musculoskelatal: normal inspection Neurologic/Psych: no motor/sensory deficits, alert, oriented x 3 Skin: normal color Lymphatic: no adenopathy Diagnostics Laboratory Results Results Past 24 Hours Test 09/05/16 12:52 09/05/16 13:15 09/05/16 13:22 Range/Units Creatine Kinase MB Ratio 0.9 0-3.0 White Blood Count 7.22 4.8-10.8 K/uL Red Blood Count 4.61 4.2-5.4 M/uL Hemoglobin 13.7 12.0-16.0 g/dL Hematocrit 41.4 37-47 % Mean Corpuscular Volume 89.8 80-100 fL Mean Corpuscular Hemoglobin 29.7 25-34 pg Mean Corpuscular Hemoglobin Concent 33.1 32-36 g/dl Platelet Count 222 130-400 K/uL Mean Platelet Volume 10.6 7.4-10.4 fL Neutrophils (%) (Auto) 69.6 % Lymphocytes (%) (Auto) 20.8 % Monocytes (%) (Auto) 7.2 % Eosinophils (%) (Auto) 1.7 % Basophils (%) (Auto) 0.4 % Neutrophils # (Auto) 5.03 1.4-6.5 K/uL Lymphocytes # (Auto) 1.50 1.2-3.4 K/uL Monocytes # (Auto) 0.52 0.11-0.59 K/uL Eosinophils # (Auto) 0.12 0-0.5 K/uL Basophils # (Auto) 0.03 0-0.2 K/uL RDW Standard Deviation 44.5 36.4-46.3 fL RDW Coefficient of Variation 13.5 11.5-14.5 % Immature Granulocyte % (Auto) 0.3 % Immature Granulocyte # (Auto) 0.02 0.00-0.02 K/uL Sodium Level 143 136-145 mmol/L Potassium Level 3.7 3.5-5.1 mmol/L Chloride Level 107 98-107 mmol/L Carbon Dioxide Level 32 21-32 mmol/L Anion Gap 4.0 3-11 mmol/L Blood Urea Nitrogen 18 7-18 mg/dl Creatinine 0.86 0.60-1.20 mg/dl Est Creatinine Clear Calc Drug Dose 55.0 ml/min Estimated GFR () 79.3 Estimated GFR (Non- 68.4 BUN/Creatinine Ratio 20.4 10-20 Random Glucose 100 70-99 mg/dl Calcium Level 9.2 8.5-10.1 mg/dl Total Bilirubin 0.4 0.2-1 mg/dl Direct Bilirubin 0.1 0-0.2 mg/dl Aspartate Amino Transf (AST/SGOT) 14 15-37 U/L Alanine Aminotransferase (ALT/SGPT) 18 12-78 U/L Alkaline Phosphatase 128 45-117 U/L Total Creatine Kinase 79 26-192 U/L Creatine Kinase MB 0.7 0.5-3.6 ng/ml Total Protein 7.2 6.4-8.2 gm/dl Albumin 3.7 3.4-5.0 gm/dl Lipase 176 73-393 U/L Bedside Troponin I 0.010 0-0.045 ng/ml CXR normal Normal EKG Impression Assessment and Plan 1. Atypical chest pain - rule out ACS. serial troponin. consult cards. Stress Echo in am as more than a year since last stress. Cont ASA. PRN nitro/EKG with CP. 2. Prinzmetal angina - continue Imdur and Verapamil. She feels symptoms similar to previous angina. 3. nausea - hx GERD. No diarrhea/fever. likely not infectious. Started on Doxy few days ago. Stop Doxy. PRN zofran, Pantoprazole 4. HTN - continue verapamil and HCTZ 5. full code 6. dvt prophylaxis with lovenox and ambulation 7. ELS one midnight. no d/c needs anticipated Level of Care Telemetry Resuscitation Status FULL RESUSCITATION VTE Prophylaxis VTE Risk Assessment Done? Y/N: Yes Risk Level: Moderate Given or contraindicated: Enoxaparin (Lovenox)SQ Social Service Consult None Apply
[2016-09-05 17:07] LABS: PROTHROMBIN TIME (PATIENT) 10.6 SECONDS (9.0-12.0)
[2016-09-05] MEDS ORDERED: HydrALAZINE HCL 20 MG/ML VIAL IV. PRN (17:15)
[2016-09-05 18:45] VITALS: BP 158/90; PULSE 90; TEMP 36.9; O2SAT 96; Ht 147.3 cm; Wt 89.0 kg
[2016-09-05 20:00] VITALS: BP 164/67; PULSE 54; TEMP 36.7; O2SAT 94
--- NOTE | 2016-09-05 20:21 | EMERGENCY ROOM VISIT NOTE ---
History Report prepared by Rashmi: Rekha Lane Under the Supervision of: Dr. Bird Hernandez M.D. First contact with patient: 12:47 Chief Complaint: VOMITING Stated Complaint: THROWING UP - PAIN DOWN MY ARMS History of Present Illness The patient is a 71 year old female who presents to the Emergency Room with complaints of an episode of vomiting starting this morning. The patient states that she woke up this morning and didn't feel well. She states that when she does vomit, phlegm is all that comes up. 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 She states that she came to the ED because she called her PCP and she told her to come in. The patient reports being on antibiotics, Prednisone, Aspirin, and Doxycycline. She notes that she has had two catheterizations in the past that showed some Prinzmetal angina. She denies any heart attacks or blockages. The patient denies any thyroid problems, abdominal pain, and taking any Nitroglycerin today. The patient notes she has GERD and is in remission from breast cancer. Source of History: patient, family Onset: this morning Position: abdomen Timing: other (episode) Associated Symptoms: + chest pain, + cough, No abdominal pain Note: The patient complains of arm pain in both arms. Review of Systems See HPI for pertinent positives & negatives. A total of 10 systems reviewed and were otherwise negative. Past Medical & Surgical Medical Problems: (1) Hypertension Surgical Problems: (1) H/O laminectomy (2) S/P knee replacement Old medical records were reviewed. Nurse's notes were reviewed and I agree with. Family History Cancer Diabetes mellitus Gallbladder disease Heart disease Hypertension Lung disease Social History Smoking Status: Never Smoker Alcohol Use: none Marital Status: Housing Status: lives alone Occupation Status: employed Current/Historical Medications Scheduled Aspirin (Aspirin Ec), 81 MG PO DAILY Budesonide/Formoterol Fumarate (Symbicort 160/4.5 Inhaler ), 2 PUFFS INH BID Bupropion (Wellbutrin Sr), 150 MG PO QAM Cholecalciferol (Vitamin D 1000 Unit), 1,000 INTER.UNIT PO HS Doxycycline (Monohydrate) (Doxycycline), 100 MG PO BID Isosorbide Mononitrate Ext Rel (Imdur Ext Rel), 60 MG PO QAM Magnesium Oxide (Mag-Ox), 400 MG PO QAM Multiple Minerals W/ Vitamins (Citracal Plus), 1 TAB PO BID Multivitamin (Multivitamin), 1 TAB PO QAM Omeprazole (Prilosec), 40 MG PO BID Trazodone Hcl (Trazodone), 50 MG PO HS Trazodone Hcl (Trazodone), 100 MG PO HS Triamterene/Hctz (Triamterene/Hctz 37.5-25MG), 0.5 TAB PO QAM Verapamil (Verelan Pm), 300 MG PO HS Vortioxetine HBr (Trintellix), 20 MG PO HS Scheduled PRN Docusate Sodium (Colace), 1 CAP PO BID PRN for Constipation Ipratropium [place] (Atrovent Hfa), 2 PUFFS INH QID PRN for SOB/Wheezing Nitroglycerin (Nitrostat), 0.4 MG UT UD PRN for Chest Pain Allergies Coded Allergies: Adhesives (Unverified Allergy, Unknown, SOME TAPE BLISTERS-PAPER TAPE OK, 06/14/16) Celecoxib (Verified Allergy, Unknown, RASH,SWOLLEN FEET/HANDS, 06/14/16) Oxycodone (Verified Adverse Reaction, Severe, GI SYMPTOMS, 06/14/16) Rosuvastatin (Verified Adverse Reaction, Severe, MUSCLE PAIN/ABNORMAL LABS , 06/14/16) Albuterol (Verified Adverse Reaction, Unknown, CHEST PAIN, 06/14/16) Physical Exam Vital Signs Date Time Temp Pulse Resp B/P Pulse Ox O2 Delivery O2 Flow Rate FiO2 09/05/16 14:46 57 18 178/85 95 09/05/16 12:42 36.6 78 22 149/76 95 Room Air Physical Exam General: Well developed well nourished in no acute distress, breathing comfortably on room air. Normal speech. Non-ill appearing older female. No acute distress. HEENT: Normal cephalic atraumatic. Pupils are equal round and reactive to light. Sclerae anicteric. Extraocular movements are intact. Oropharynx is pink with moist mucous membranes. No swelling of the mouth lips or tongue. Neck: Supple with a midline trachea. No meningeal signs or stiffness, no JVD or bruits. No Stridor. Chest: Clear to auscultation bilaterally. No wheezes or rhonchi. No increased work of breathing. Heart: regular rate and rhythm. Abdomen: Soft nontender, nondistended without rebound guarding or rigidity. Extremities: No cyanosis clubbing or edema. No calf tenderness or assymetry Spine/Back. Non tender to palpation. No CVA tenderness Skin: Good turgor without rashes. Neurologic exam: Cranial nerves two through 12 are intact. Motor and sensation are intact and symmetrical throughout. Medical Decision & Procedures ER Provider Diagnostic Interpretation: Radiology results as stated below per my review and radiologist interpretation: CHEST ONE VIEW PORTABLE CLINICAL HISTORY: CHEST PAIN dyspnea COMPARISON STUDY: 08/06/2015 FINDINGS: The bones soft tissues and hemidiaphragms are normal. The cardiomediastinal silhouette is normal. The lungs are clear. The pulmonary vasculature is normal. IMPRESSION: Negative chest. Electronically signed by: Cirilo Edwards M.D. 09/05/2016 1:14 PM Dictated Date/Time: 09/05/2016 1:13 PM Laboratory Results 09/05/16 13:15 Red Blood Count 4.61, Mean Corpuscular Volume 89.8, Mean Corpuscular Hemoglobin 29.7, Mean Corpuscular Hemoglobin Concent 33.1, Mean Platelet Volume 10.6, Neutrophils (%) (Auto) 69.6, Lymphocytes (%) (Auto) 20.8, Monocytes (%) (Auto) 7.2, Eosinophils (%) (Auto) 1.7, Basophils (%) (Auto) 0.4, Neutrophils # (Auto) 5.03, Lymphocytes # (Auto) 1.50, Monocytes # (Auto) 0.52, Eosinophils # (Auto) 0.12, Basophils # (Auto) 0.03 09/05/16 13:15 Test 09/05/16 13:15 09/05/16 13:22 White Blood Count 7.22 K/uL (4.8-10.8) Red Blood Count 4.61 M/uL (4.2-5.4) Hemoglobin 13.7 g/dL (12.0-16.0) Hematocrit 41.4 % (37-47) Mean Corpuscular Volume 89.8 fL (80-100) Mean Corpuscular Hemoglobin 29.7 pg (25-34) Mean Corpuscular Hemoglobin Concent 33.1 g/dl (32-36) Platelet Count 222 K/uL (130-400) Mean Platelet Volume 10.6 fL (7.4-10.4) Neutrophils (%) (Auto) 69.6 % Lymphocytes (%) (Auto) 20.8 % Monocytes (%) (Auto) 7.2 % Eosinophils (%) (Auto) 1.7 % Basophils (%) (Auto) 0.4 % Neutrophils # (Auto) 5.03 K/uL (1.4-6.5) Lymphocytes # (Auto) 1.50 K/uL (1.2-3.4) Monocytes # (Auto) 0.52 K/uL (0.11-0.59) Eosinophils # (Auto) 0.12 K/uL (0-0.5) Basophils # (Auto) 0.03 K/uL (0-0.2) RDW Standard Deviation 44.5 fL (36.4-46.3) RDW Coefficient of Variation 13.5 % (11.5-14.5) Immature Granulocyte % (Auto) 0.3 % Immature Granulocyte # (Auto) 0.02 K/uL (0.00-0.02) Prothrombin Time 10.6 SECONDS (9.0-12.0) Prothromb Time International Ratio 1.0 (0.9-1.1) Activated Partial Thromboplast Time 26.8 SECONDS (21.0-31.0) Partial Thromboplastin Ratio 1.0 Anion Gap 4.0 mmol/L (3-11) Est Creatinine Clear Calc Drug Dose 55.0 ml/min Estimated GFR () 79.3 Estimated GFR (Non- 68.4 BUN/Creatinine Ratio 20.4 (10-20) Calcium Level 9.2 mg/dl (8.5-10.1) Total Bilirubin 0.4 mg/dl (0.2-1) Direct Bilirubin 0.1 mg/dl (0-0.2) Aspartate Amino Transf (AST/SGOT) 14 U/L (15-37) Alanine Aminotransferase (ALT/SGPT) 18 U/L (12-78) Alkaline Phosphatase 128 U/L (45-117) Total Creatine Kinase 79 U/L (26-192) Creatine Kinase MB 0.7 ng/ml (0.5-3.6) Creatine Kinase MB Ratio 0.9 (0-3.0) Total Protein 7.2 gm/dl (6.4-8.2) Albumin 3.7 gm/dl (3.4-5.0) Lipase 176 U/L (73-393) Bedside Troponin I 0.010 ng/ml (0-0.045) Laboratory studies as stated above per my review. Medications Administered Medications (Trade) Dose Ordered Sig/Magy Route Start Time Stop Time Status Last Admin Dose Admin Ondansetron HCl 4 mg 4 mg NOW STAT IV 09/05/16 12:52 09/05/16 12:54 DC 09/05/16 13:28 4 MG Sodium Chloride 1,000 ml @ 999 mls/hr Q1H1M STAT IV 09/05/16 12:52 09/05/16 13:52 DC 09/05/16 12:52 999 MLS/HR Sodium Chloride (Nss 1000ml) 1,000 ml @ 150 mls/hr Q6H40M ONCE IV 09/05/16 12:52 09/05/16 18:11 DC 09/05/16 12:52 150 MLS/HR Aspirin (Aspirin Chew) 324 mg NOW STAT PO 09/05/16 14:30 09/05/16 14:32 DC 09/05/16 14:36 324 MG ECG Indication: vomiting Rate (beats per minute): 59 Rhythm: sinus bradycardia Findings: 1st degree AV block, no acute ischemic change Comparison ECG Date: August 07, 2015 Change: no significant change ED Course 1249: Past medical records reviewed. The patient was evaluated in room C12, and a complete history and physical examination were performed. 1552: Ordered NSS 1000 ml @ 150 mls/hr IV, NSS 1000 ml @ 999 mls/hr, Zofran Inj 4 mg IV. 1423: I reevaluated the patient and she is feeling better. I discussed the exam findings and treatment plan with her. She verbally agreed and understands. The patient will be admitted for further management. 1430: Ordered Aspirin Chem 324 mg PO. 1445: I discussed the patient's case with Dr. Lipscomb. The patient will be evaluated for further management. Medical Decision Differential diagnoses include acute coronary syndrome, Prinzmetal angina, electrolyte imbalance, dehydration This patient comes in as described above. She was placed in room C 12. She is here for treatment and evaluation of nausea and arm pain bilaterally. she said it was severe and may have had some mild chest discomfort. Denies any chest pain at present and her symptoms are almost resolved. She has a history of Prinzmetal angina. Her last stress test was over a year ago. IV access established and she was given IV Zofran and IV fluids. EKG does not suggest acute coronary syndrome or arrhythmia. She has no acute electrolyte or metabolic abnormalities. Chest x-ray does not suggest congestive heart failure , pneumonia, or pneumothorax. She is feeling better. I did give her an aspirin chewable. I do think she needs to be admitted to rule out acute coronary syndrome. I did consult the [facility] hospitalist who saw her in the ER and will admit her for these measures. Consults Time Called: 1432 Consulting Physician: Dr. Lipscomb Returned Call: 1440 I discussed the patient's case with Dr. Lipscomb. The patient will be evaluated for further management. Impression Primary Impression: Unstable angina Additional Impressions: Chest pain Vomiting Scribe Attestation The scribe's documentation has been prepared under my direction and personally reviewed by me in its entirety. I confirm that the note above accurately reflects all work, treatment, procedures, and medical decision making performed by me. Departure Information Dispostion Being Evaluated By Hospitalist Referrals Meena Oleary M.D. (PCP) Patient Instructions My [facility] Problem Qualifiers
[2016-09-05] MEDS: PANTOprazole SOD 40 MG TAB PO SCH (20:30)
[2016-09-05] MEDS ORDERED: VERAPAMIL HCL 180 MG TABCR PO SCH (21:00)
[2016-09-05] MEDS ORDERED: VERAPAMIL HCL 120 MG TABCR PO SCH (21:00)
[2016-09-05] MEDS ORDERED: ENOXAPARIN 40 MG/0.4 ML SYR SC SCH (21:00)
[2016-09-05] MEDS ORDERED: CHOLECALCIFEROL 1000 INTER.UNIT TAB PO SCH (21:00)
[2016-09-05] MEDS ORDERED: TRAZODONE HCL 100 MG TAB PO SCH (21:00)
[2016-09-05 23:56] VITALS: BP 144/66; PULSE 57; TEMP 36.7; O2SAT 94
[2016-09-06 04:11] VITALS: BP 125/48; PULSE 60; TEMP 36.4; O2SAT 94
[2016-09-06 04:47] LABS: CHOLESTEROL 178 mg/dl (0-200); CHOLESTEROL/HDL RATIO 3.6; HDL CHOLESTEROL 49 mg/dl; LDL CHOLESTEROL CALCULATED 92 mg/dl; TRIGLYCERIDES 185 mg/dl (0-150); VERY LOW DENSITY LIPOPROT CALC 37 mg/dl
[2016-09-06 08:16] VITALS: BP 165/71; PULSE 57; TEMP 36.6; O2SAT 95
[2016-09-06] MEDS ORDERED: TRIAMTERENE/HCTZ 37.5/25MG TAB PO SCH (09:00)
[2016-09-06] MEDS ORDERED: MAGNESIUM OXIDE 400 MG TAB PO SCH (09:00)
[2016-09-06] MEDS ORDERED: MULTIVITAMIN TAB PO SCH (09:00)
[2016-09-06] MEDS ORDERED: BuPROPion SR 150 MG TABCR PO SCH (09:00)
[2016-09-06] MEDS ORDERED: ASPIRIN 81 MG ECTAB PO SCH (09:00)
[2016-09-06] MEDS ORDERED: ISOSORBIDE MONONITRATE 60 MG TABCR PO SCH (09:00)
--- NOTE | 2016-09-06 09:17 | CARDIOLOGY CONSULTATION ---
DATE OF CONSULTATION: 09/06/2016 TIME: 8:29 a.m. CONSULTING PHYSICIAN: Dr. Lipscomb. REASON FOR CONSULT: Chest pain. HISTORY OF PRESENT ILLNESS: Ms. Balderas is a pleasant 71-year-old female with a history significant for nonobstructive CAD, prinzmetal angina, paroxysmal SVT, aortic sclerosis, dyslipidemia and hypertension. She was admitted to [facility] on 09/05/2016 with chest pain. Yesterday morning after she woke up, she took a shower. As soon as she got out of the shower, she felt nauseated and started vomiting. She had one episode of emesis according to her report. Immediately following, she had bilateral arm pain, feeling as though her arms were in a vice. She felt as though they were spasming. This was accompanied by substernal chest tightness in the upper chest that lasted only a few minutes before spontaneously resolving. She was short of breath throughout the episode as well. Her right arm continued to have pain throughout the entire day and resolved last night. The left arm pain and chest pain resolved within approximately 5 minutes as noted. She has not had any further nausea or vomiting. She was able to tolerate her food last night without issues. She has been recently treated for asthma exacerbation and has been on doxycycline after finishing another antibiotic course initially and prednisone. She denies fevers, chills, abdominal pain, syncope, near syncope, palpitations, orthopnea, PND. She does have some mild swelling in her legs at night. She underwent right foot surgery on 06/14/2016 and since then has not been exercising much. Currently, she feels back to her baseline and would like to go home soon. She has a stress echo ordered and pending by the primary service. REVIEW OF SYSTEMS: As above and otherwise review of systems are negative. PAST MEDICAL HISTORY: 1. Nonobstructive CAD with last cardiac catheterization 10/09/2010. Mild nonocclusive CAD in the LAD, circumflex and RCA. 2. Paroxysmal SVT noted on 2 separate event monitors. Nonsustained. She is on verapamil. 3. Prinzmetal angina, apparently documented on prior cardiac catheterization. 4. Dyslipidemia. 5. Hypertension. 6. Palpitations which have correlated in the past with SVT and PACs. 7. Aortic valve sclerosis. 8. Asthma. 9. History of breast cancer. 10. Depression. 11. Esophageal reflux. 12. Anxiety disorder. 13. Lumbosacral radiculopathy. 14. Spinal stenosis. 15. Status post right foot surgery. HOME MEDICATIONS: Include verapamil 300 mg at bedtime, aspirin 81 mg daily, QVAR, Atrovent, Symbicort, isosorbide mononitrate 60 mg daily, bupropion 150 mg daily, omeprazole 40 mg twice daily, magnesium oxide 400 mg daily, triamterene/HCTZ 37.5/25 half tab daily, multivitamin. INPATIENT MEDICATIONS: Include aspirin 81 mg daily, bupropion 150 mg daily, Lovenox 40 mg subcu daily, isosorbide mononitrate 60 mg daily, magnesium oxide 400 mg daily, Protonix 40 mg p.o. b.i.d., verapamil 300 mg at bedtime, triamterene/HCTZ half tab daily. ALLERGIES: INCLUDE ADHESIVES, ALBUTEROL, CELEXICOB, OXYCODONE, ROSUVASTATIN AND OTHER STATINS. FAMILY HISTORY: Mother had angina later in life. Father developed CAD in his 40s and also had hypertension. Sister, dyslipidemia and breast cancer. Another sister had breast cancer and thyroid issues. Brother from MRSA infection. SOCIAL HISTORY: Quit smoking in approximately 1989. No alcohol or drugs. 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 She is . Two children. She lives alone. She is unaccompanied in her hospital room. PHYSICAL EXAMINATION: VITAL SIGNS: Temperature 36.4 degrees, heart rate 60 beats per minute, respiration rate 18, blood pressure 125/48 mmHg, and oxygen saturation 94% on room air. Weight 89 kg. GENERAL: No acute distress. She is alert and oriented. HEENT: Anicteric sclerae. NECK: No appreciable JVD. No bruits. Normal carotid upstrokes bilaterally. CARDIAC: PMI was nonpalpable. There was no ventricular heave, regular, normal S1, S2, 1/6 early peaking systolic ejection murmur, best heard at the right upper sternal border. No rubs or gallops. LUNGS: Clear to auscultation bilaterally without wheezes, rales or rhonchi. ABDOMEN: Soft, nontender, nondistended, normoactive bowel sounds, no bruits noted. EXTREMITIES: No pitting edema. No cyanosis. 2+ radial pulses bilaterally. 2+ dorsalis pedis pulses bilaterally. No palpable cords. PSYCHIATRIC: Affect appears appropriate. ECG personally reviewed. ECG 09/05/2016 at 12:59 p.m., sinus bradycardia with first-degree AV block, 59 beats per minute. There is mild artifact. Telemetry personally reviewed. No arrhythmia. LABORATORY DATA: White blood cell count 7.22, hemoglobin 13.7, platelets 222. Troponins negative x3. LDL 92, HDL 49, triglycerides 185. Sodium 143, potassium 3.7, BUN 18, creatinine 0.86, lipase 176. INR 1. Chest x-ray image personally reviewed. No infiltrate. No suggestion of CHF. Radiology has interpreted this as "negative chest." Her most recent stress echo was performed on 08/07/2015. This demonstrated negative dobutamine stress echo for ischemia at 90% MPHR. Her resting EF was 65-70%. Mild LVH. Normal wall motion, type 1 diastolic dysfunction, no significant valvular abnormalities reported. ASSESSMENT AND PLAN: 1. Chest pain: Her chest pain is atypical. Could have been secondary to her episode of vomiting. It does not appear to be ischemic in origin. Her arm pain is not ischemic in origin. She had right arm pain for several hours, lasting most of the day, and had negative troponins. A stress echo was ordered by the primary service and is currently pending; however, I do not suspect that her symptoms are related to coronary artery disease. 2. Coronary artery disease: She had mild nonobstructive coronary artery disease noted on her cardiac catheterization in 2010. Continue aspirin 81 mg daily. She is statin intolerant, and therefore, not on a statin therapy. She has been tried on several statins in the past including Crestor, Lipitor, Zocor and pravastatin. She has not tolerated statins due to severe myalgias as well as an episode of elevated CK. 3. Hypertension: Blood pressure has been elevated; however, her most recent one was normal. Continue home regimen. Can adjust medications as appropriate. 4. Disposition: She can continue to follow up with cardiology as scheduled as long as stress echo is unremarkable. Greater than 40 minutes spent, with greater than 50% of that time spent counseling the patient, coordinating care, and reviewing available data while hospitalized.
[2016-09-06] MEDS: PANTOprazole SOD 40 MG TAB PO SCH (11:38)
[2016-09-06 12:14] VITALS: BP 141/68; PULSE 61; TEMP 36.8; O2SAT 94
--- NOTE | 2016-09-06 13:38 | Medical Student: [facility] ---
Med Student Progress Note Date of Service September 06, 2016. Subjective Pt evaluation today including: conversation w/ patient, physical exam, chart review, lab review, review of studies Pain: none PO Intake: full diet Voiding: no voiding problems patient reports no acute events overnight. her nausea and right arm pain have both resolved. she was able to tolerate a full meal last night. she denies chest pain, shortness of breath, neck, jaw, or arm pain. she will be undergoing stress echocardiography today. no other complaints. Review of Systems Constitutional: No chills, No fever Respiratory: No cough, No sputum Cardiac: No chest pain, No orthopnea Abdomen: No nausea, No pain Objective Vital Signs Date Time Temp Pulse Resp B/P Pulse Ox O2 Delivery O2 Flow Rate FiO2 09/06/16 12:14 36.8 61 20 141/68 94 Room Air 09/06/16 08:16 36.6 57 20 165/71 95 09/06/16 08:00 Room Air 09/06/16 04:11 36.4 60 18 125/48 94 Room Air 09/06/16 04:00 Room Air 09/05/16 23:59 Room Air 09/05/16 23:56 36.7 57 18 144/66 94 Room Air 09/05/16 20:00 36.7 54 18 164/67 94 Room Air 09/05/16 17:35 53 18 162/65 96 Room Air 09/05/16 16:16 59 18 157/63 97 Room Air 09/05/16 14:46 57 18 178/85 95 Physical Exam General Appearance: no apparent distress, + obese ENT: hearing grossly normal, pharynx normal Neck: supple, no JVD Respiratory/Chest: chest non-tender, lungs clear, normal breath sounds Cardiovascular: regular rate, rhythm, no edema, no gallop, + systolic murmur ( II/ systolic murmur at upper sternal borders) Abdomen: non tender, soft Extremities: non-tender, + pedal edema (1+ non pitting edema bilaterally) Neurologic/Psychiatric: alert, oriented x 3 Skin: normal color, no rash Laboratory Results Last 24 Hours Test 09/05/16 21:51 09/06/16 04:15 09/06/16 11:45 Troponin I < 0.015 ng/ml < 0.015 ng/ml Triglycerides Level 185 mg/dl Cholesterol Level 178 mg/dl HDL Cholesterol 49 mg/dl LDL Cholesterol, Calculated 92 mg/dl VLDL Cholesterol, Calculated 37 mg/dl Cholesterol/HDL Ratio 3.6 Medications Current Inpatient Medications Medications (Trade) Dose Ordered Sig/Magy Route Start Time Stop Time Status Last Admin Dose Admin Enoxaparin Sodium (Lovenox Inj) 40 mg Q24H SC 09/05/16 21:00 10/05/16 20:59 09/05/16 20:31 40 MG Acetaminophen (Tylenol Tab) 650 mg Q4H PRN PO 09/05/16 16:00 10/05/16 15:59 Al Hydrox/Mg Hydrox/Simethicone (Maalox Max Susp) 15 ml Q4H PRN PO 09/05/16 16:00 10/05/16 15:59 Magnesium Hydroxide (Milk Of Magnesia Susp) 30 ml Q12H PRN PO 09/05/16 16:00 10/05/16 15:59 Ondansetron HCl (Zofran Inj) 4 mg Q6H PRN IV 09/05/16 16:00 10/05/16 15:59 Nitroglycerin (Nitrostat Tab) 0.4 mg UD PRN SL 09/05/16 16:00 10/05/16 15:59 Morphine Sulfate (MoRPHine SULFATE INJ) 2 mg Q30M PRN IV 09/05/16 16:00 09/19/16 15:59 Polyethylene (Miralax Powder Packet) 17 gm DAILY PRN PO 09/05/16 16:00 10/05/16 15:59 Aspirin (Ecotrin Tab) 81 mg DAILY PO 09/06/16 09:00 10/06/16 08:59 09/06/16 11:39 81 MG Bupropion HCl (Wellbutrin-Sr Tab) 150 mg QAM PO 09/06/16 09:00 10/06/16 08:59 09/06/16 11:38 150 MG Cholecalciferol (Vitamin D Tab) 1,000 inter.unit HS PO 09/05/16 21:00 10/05/16 20:59 09/05/16 20:31 1,000 INTER.UNIT Docusate Sodium (coLACE CAP) 100 mg BID PRN PO 09/05/16 16:30 10/05/16 16:29 Ipratropium [place] (Atrovent Hfa Inhaler) 2 puffs QID PRN INH 09/05/16 16:00 10/05/16 15:59 Isosorbide Mononitrate (Imdur Ext Rel Tab) 60 mg QAM PO 09/06/16 09:00 10/06/16 08:59 09/06/16 11:39 60 MG Magnesium Oxide (Mag-Ox Tab) 400 mg QAM PO 09/06/16 09:00 10/06/16 08:59 09/06/16 11:39 400 MG Multivitamins (Multivitamin Tab) 1 tab QAM PO 09/06/16 09:00 10/06/16 08:59 09/06/16 11:39 1 TAB Trazodone HCl (Desyrel Tab) 100 mg HS PO 09/05/16 21:00 10/05/16 20:59 09/05/16 20:31 100 MG Triamterene/HCTZ (Maxzide 37.5/25 Tab) 0.5 tab QAM PO 09/06/16 09:00 10/06/16 08:59 09/06/16 11:38 0.5 TAB Pantoprazole Sodium (Protonix Tab) 40 mg BID PO 09/05/16 21:00 10/05/16 20:59 09/06/16 11:38 40 MG Verapamil HCl (Calan-Sr Tab) 180 mg HS PO 09/05/16 21:00 10/05/16 20:59 09/05/16 20:32 180 MG Miscellaneous Information (Order Awaiting Action) 1 ea QS N/A 09/06/16 00:00 10/06/16 00:00 Miscellaneous (Iv Fluids Completed) 1 ea PRN PRN N/A 09/05/16 16:15 09/05/17 16:14 Verapamil HCl (Calan-Sr Tab) 120 mg HS PO 09/05/16 21:00 10/05/16 20:59 09/05/16 20:31 120 MG Hydralazine HCl (HydrALAZINE INJ) 20 mg Q8 PRN IV. 09/05/16 17:15 10/05/16 17:14 Assessment and Plan Assessment and Plan: This is a 71 yo female who presents with nausea, vomiting, and bilateral squeezing arm pain concerning for cardiac causes. 1. ACS rule-out: -3 negative troponins. -EKG shows no ST elevations or acute changes -CXR normal -Continue ASA 81 mg po daily -Continue home BP meds -ACS highly unlikely. -Stress echo this morning. 2. GERD: -Pantoprazole 40 mg po daily 3. HTN: -Continue triamterene/HCTZ at home dose -Continue verapamil at home dose 4. Depression: -Continue Trintellix at home dose -Continue Wellbutrin at home dose -Continue trazodone for sleep 5. Asthma: -Continue home inhaler regimen -D/c doxycycline 6. DVT prophylaxis: -Heparin 5000 units subq q8h 7. Discharge: -Provided the stress echo shows no acute abnormalities, may discharge home today. -Follow up with cardiology as needed. -Follow up with PCP early next week. Discharge planning: home
--- NOTE | 2016-09-06 13:50 | Discharge Instructions ---
Discharge Instructions Date of Service September 06, 2016. Admission Reason for Admission: Chest Pain Discharge Discharge Diagnosis / Problem: atypical chest pain - not a heart attack Discharge Goals Goal(s): Decrease discomfort, Improve function, Improve disease control Activity Recommendations Activity Limitations: resume your previous activity Lifting Limitations: none Exercise/Sports Limitations: as tolerated . Instructions / Follow-Up Instructions / Follow-Up Admitted with nausea, chest pain and arm pain. Nausea may have been attributed to the doxycycline and it is recommended to be stopped. This was not a heart attack. Troponin's have been normal and stress test was normal. Current Hospital Diet Patient's current hospital diet: AHA Diet (Heart Healthy) Discharge Diet Recommended Diet: AHA Diet (Heart Healthy) Pending Studies Studies pending at discharge: no Laboratory Results Lipid Panel Test 09/06/16 04:15 Range/Units Triglycerides Level 185 H 0-150 mg/dl Cholesterol Level 178 0-200 mg/dl HDL Cholesterol 49 mg/dl Cholesterol/HDL Ratio 3.6 LDL Cholesterol, Calculated 92 mg/dl Medical Emergencies . Who to Call and When: Medical Emergencies: If at any time you feel your situation is an emergency, please call 911 immediately. . Non-Emergent Contact Non-Emergency issues call your: Primary Care Provider Call Non-Emergent contact if: your pain is not controlled, your pain is worsening . . "Provider Documentation" section prepared by Brian Perez. . VTE Core Measure Inpt VTE Proph given/why not?: Enoxaparin (Lovenox)SQ
[2016-09-06 14:54] VITALS: BP 141/68; PULSE 61; TEMP 36.8; O2SAT 94
--- NOTE | 2016-09-06 19:45 | EXERCISE STRESS ECHO ---
*NOTICE TO RECEIVING REPUBLICAN AGENCY This information is strictly Confidential and protected under [place] law. [place] law prohibits you from making any further disclosure of this information unless further disclosure is expressly permitted by the written consent of the person to whom it pertains or is authorized by law. A general authorization for the release of medical or other information is not sufficient for this purpose. Hospital accepts no responsibility if the information is made available to any other person, INCLUDING THE PATIENT. Interpretation Summary * Name: MAC SIDDIQUI Study Date: 09/06/2016 10:03 AM BP: 153/68 mmHg * Patient Location: .2E\S\E205\S\1 HR: 52 * : 1945 (M/d/yyyy) Gender: Female Height: 55 in * Age: 71 yrs Ethnicity: CA Weight: 195 lb * Ordering Physician: Brian Perez * Referring Physician: Meena Oleary * Performed By: Shanique Lemon RDCS * * Reason For Study: CHEST PAIN * BSA: 1.7 m2 * -- Conclusions -- * Left ventricular systolic function is normal. * Diastolic dysfunction, Grade II (pseudonormalization pattern). * There is mild mitral regurgitation. * Right ventricular systolic pressure is normal. * Hypertensive BP response to exercise * Poor exercise tolerance * Normal stress echocardiogram without evidence of ischemia Procedure Details * ECHOEX, CPT #64260 * A contrast injection of Definity was performed to improve assessment of LV function. * Contrast was injected into an intravenous site in the left arm. * One vial of Definity ultrasound contrast was diluted in normal saline to a total volume of 10 ml. A total of '4' ml of solution was administered during imaging. * Lot # [id number] of Definity utilized for procedure. * Expiration date OCT 13. * The attending nurse who injected the contrast agent was MARYLU NOLEN RN. Left Ventricle * The left ventricle is normal in size. * There is normal left ventricular wall thickness. * Ejection Fraction = 60-65%. * Left ventricular systolic function is normal. * Diastolic dysfunction, Grade II (pseudonormalization pattern). * The left ventricular wall motion is normal. Right Ventricle * The right ventricle is normal in size and function. Atria * The left atrial size is normal. * Right atrial size is normal. Mitral Valve * The mitral valve is grossly normal. * There is mild mitral regurgitation. Tricuspid Valve * The tricuspid valve is not well visualized, but is grossly normal. * There is mild tricuspid regurgitation. * Right ventricular systolic pressure is normal. Aortic Valve * The aortic valve is normal in structure and function. * No hemodynamically significant valvular aortic stenosis. * There is no significant aortic regurgitation. Great Vessels * The aortic root is normal size. Pericardium * There is no pericardial effusion. Stress Parameters * Normal baseline electrocardiogram. * Stress ECG: No ST changes. No arrhythmias. Left Ventricular Findings with Stress * Normal baseline EKG without ischemic changes during exercise Normal baseline echocardiogram with normal augmentation and no inducible wall motion abnormalities. Hypertensive response to exercise No symptoms reported Fink treadmill score 5 (low risk) MMode 2D Measurements and Calculations IVSd 1.2 cm IVSs 1.6 cm LVIDd 4.4 cm LVIDs 2.9 cm LVPWd 1.1 cm LVPWs 1.6 cm IVS/LVPW 1.0 FS 33.5 % EDV(Teich) 85.6 ml ESV(Teich) 32.0 ml EF(Teich) 62.5 % EDV(cubed) 82.5 ml ESV(cubed) 24.2 ml EF(cubed) 70.6 % % IVS thick 37.2 % % LVPW thick 39.1 % LV mass(C)d 177.6 grams LV mass(C)dI 102.4 grams/m\S\2 LV mass(C)s 167.2 grams LV mass(C)sI 96.4 grams/m\S\2 SV(Teich) 53.5 ml SI(Teich) 30.9 ml/m\S\2 SV(cubed) 58.3 ml SI(cubed) 33.6 ml/m\S\2 Ao root diam 2.5 cm Ao root area 5.0 cm\S\2 LA dimension 3.9 cm LA/Ao 1.5 LVAd ap4 27.1 cm\S\2 LVLd ap4 8.2 cm EDV(MOD-sp4) 74.4 ml EDV(sp4-el) 75.7 ml LVAs ap4 15.3 cm\S\2 LVLs ap4 7.0 cm ESV(MOD-sp4) 28.9 ml ESV(sp4-el) 28.2 ml EF(MOD-sp4) 61.1 % EF(sp4-el) 62.7 % LVAd ap2 28.2 cm\S\2 LVLd ap2 8.1 cm EDV(MOD-sp2) 82.0 ml EDV(sp2-el) 83.6 ml LVAs ap2 15.7 cm\S\2 LVLs ap2 6.8 cm ESV(MOD-sp2) 31.6 ml ESV(sp2-el) 31.0 ml EF(MOD-sp2) 61.4 % EF(sp2-el) 62.9 % LVLd %diff -2.01 % EDV(MOD-bp) 79.4 ml LVLs %diff -4.09 % ESV(MOD-bp) 30.9 ml EF(MOD-bp) 61.1 % SV(MOD-sp4) 45.5 ml SI(MOD-sp4) 26.2 ml/m\S\2 SV(MOD-sp2) 50.3 ml SI(MOD-sp2) 29.0 ml/m\S\2 SV(MOD-bp) 48.5 ml SI(MOD-bp) 28.0 ml/m\S\2 SV(sp4-el) 47.5 ml SI(sp4-el) 27.4 ml/m\S\2 SV(sp2-el) 52.6 ml SI(sp2-el) 30.3 ml/m\S\2 Doppler Measurements and Calculations MV E max jose 120.9 cm/sec MV A max jose 104.3 cm/sec MV E/A 1.2 MV dec time 0.27 sec Ao V2 max 145.5 cm/sec Ao max PG 8.5 mmHg Ao max PG (full) 5.0 mmHg LV V1 max PG 3.4 mmHg LV V1 max 92.5 cm/sec TR max jose 245.7 cm/sec
--- NOTE | 2016-09-06 21:54 | Discharge Summary ---
Discharge Summary Date of Service September 06, 2016. Discharge Summary Admission Date: September 05, 2016 at 16:10 Discharge Date: September 06, 2016 Discharge Disposition: Home Principal Diagnosis: atypical chest pain Problems/Secondary Diagnoses: Medical Problems: (1) Hypertension (2) Prinzmetal Angina (3) GERD Surgical Problems: (1) H/O laminectomy (2) S/P knee replacement Immunizations: Have You Had Influenza Vaccine: Yes History of Tetanus Vaccine?: Yes History of Pneumococcal: No History of Hepatitis B Vaccine: Yes Medication Reconciliation Continued Medications: Aspirin (Aspirin Ec) 81 Mg Tab 81 MG PO DAILY Budesonide/Formoterol Fumarate (Symbicort 160/4.5 Inhaler ) Aero 2 PUFFS INH BID, INHALER Bupropion (Wellbutrin Sr) 150 Mg Ertab 150 MG PO QAM, TAB Cholecalciferol (Vitamin D 1000 Unit) 1,000 Unit Cap 1000 INTER.UNIT PO HS, CAP Docusate Sodium (Colace) 100 Mg Cap 1 CAP PO BID PRN for Constipation for 30 Days, #60 CAP Ipratropium [place] (Atrovent Hfa) 200 Puffs/3400 Mcg Aers 2 PUFFS INH QID PRN for SOB/Wheezing, #12.9 GM 3 Refills Isosorbide Mononitrate Ext Rel (Imdur Ext Rel) 60 Mg Ertab 60 MG PO QAM, TAB Magnesium Oxide (Mag-Ox) 400 Mg Tab 400 MG PO QAM, TAB Multiple Minerals W/ Vitamins (Citracal Plus) 1 Tab Tab 1 TAB PO BID Multivitamin (Multivitamin) Tab 1 TAB PO QAM, 0 Refills Nitroglycerin (Nitrostat) 0.4 Mg Tab 0.4 MG UT UD PRN for Chest Pain, BTL Omeprazole (Prilosec) 40 Mg Cap 40 MG PO BID, CAP Trazodone Hcl (Trazodone) 50 Mg Tab 50 MG PO HS, TAB Trazodone Hcl (Trazodone) 100 Mg Tab 100 MG PO HS, TAB TOTAL DOSAGE 150MG HS Triamterene/Hctz (Triamterene/Hctz 37.5-25MG) 1 Tab Tab 0.5 TAB PO QAM, TAB Verapamil (Verelan Pm) 300 Mg Ercap 300 MG PO HS, CAP Vortioxetine HBr (Trintellix) 20 Mg Tab 20 MG PO HS Discontinued Medications: Doxycycline (Monohydrate) (Doxycycline) 100 Mg Cap 100 MG PO BID Discharge Exam Review of Systems: Constitutional: No chills, No fatigue, No fever, No problem reported, No sweats, No weakness, No weight loss ENT: No dental problems, No hearing loss, No nasal symptoms, No problem reported, No sore throat, No tinnitus, No trouble swallowing, No unusual epistaxis Respiratory: No cough, No dyspnea at rest, No dyspnea on exertion, No hemoptysis, No problem reported, No shortness of breath, No sputum, No wheezing Cardiovascular: No PND, No chest pain, No claudication, No edema, No orthopnea, No palpitations, No problem reported Abdomen: No GI bleeding, No constipation, No diarrhea, No nausea, No pain, No problem reported, No vomiting Musculoskeletal: No calf pain, No joint pain, No muscle pain, No problem reported, No swelling Integumentary: No bleeding, No color change, No itch, No new/changing skin lesions, No problem reported, No rash Physical Exam: General Appearance: no apparent distress Eyes: sclerae normal ENT: pharynx normal Neck: supple, no JVD Respiratory/Chest: chest non-tender, lungs clear, normal breath sounds Cardiovascular: regular rate, rhythm, no edema, no murmur Abdomen / GI: normal bowel sounds, non tender, soft Extremities: normal inspection, no pedal edema Neurologic/Psychiatric: alert, normal mood/affect, oriented x 3 Skin: normal color, warm/dry, no rash Hospital Course 71 year old female with history of Angina. Last heart cath 2010 nonocclusive CAD. Last stress test 07/2015. former smoker. Presented to ED with complaints of nausea, bilateral crushing arm pain and chest pressure. Started with nausea this am which progressed to bilateral crushing arm pain equal bilaterally. On route to ED started with chest pressure. No radiation of symptoms. No diaphoresis. No radiation of symptoms. No fever or chills. Was started on Doxycycline on Friday for poorly controlled asthma. Was on different antibiotic and steroids before that. EKG showed NSR with no significant ST changes. Chest X -ray clear. Initial Trop normal. Will be placed under hospitalist service. 1. Atypical chest pain - ruled out ACS with serial troponin. She was seen by Dr. Raymundo in cardiac consultation. Stress Echo showed Normal baseline EKG without ischemic changes during exercise Normal baseline echocardiogram with normal augmentation and no inducible wall motion abnormalities. Hypertensive response to exercise No symptoms reported Fink treadmill score 5 (low risk) EF was 60%. She has had not further chest or arm pain. We continued ASA 2. Prinzmetal angina - We continued Imdur and Verapamil. 3. Nausea - She does not have any more nausea. We did stop docycycline which could contribute to nausea. She has history of GERD and was on a PPI. No diarrhea/fever. 4. HTN - was stable on continued verapamil and HCTZ 5. No further chest pain, nausea or arm pain since admission and will be discharged home in stable condition. Total Time Spent: Greater than 30 minutes This includes examination of the patient, discharge planning, medication reconciliation, and communication with other providers. Discharge Instructions Please refer to the electronic Patient Visit Report (Discharge Instructions) for additional information. Follow-Up PCP 1 week cardiology as needed
[2016-10-03] MEDS ORDERED: CLR10 PO (08:21)
[2016-10-03] MEDS ORDERED: BRIO INH (08:21)
[2016-10-03] MEDS ORDERED: QUET1TAB30 PO (08:21)
[2016-11-07] MEDS ORDERED: MONT1TAB3 PO (09:31)
== END 2016-09-06 15:15 | disposition home or self-care (01) ==
LOC: ENRESERVTM → ENRESERVDT → C.EDB 12:33 → C.2E 16:10
PROVIDERS: ADMIT Hospitalist; ATTEND Hospitalist
DX: R07.89 Other chest pain (principal); I10 Essential (primary) hypertension; I20.1 Angina pectoris with documented spasm; K21.9 Gastro-esophageal reflux disease without esophagitis; F32.9 Major depressive disorder, single episode, unspecified; J45.909 Unspecified asthma, uncomplicated; I47.1 Supraventricular tachycardia; I25.10 Atherosclerotic heart disease of native coronary artery without angina pectoris; E78.5 Hyperlipidemia, unspecified; I35.0 Nonrheumatic aortic (valve) stenosis; F41.9 Anxiety disorder, unspecified; M48.00 Spinal stenosis, site unspecified; M54.16 Radiculopathy, lumbar region; Z79.82 Long term (current) use of aspirin; Z79.899 Other long term (current) drug therapy; Z85.3 Personal history of malignant neoplasm of breast; Z87.891 Personal history of nicotine dependence

== ENCOUNTER → 2016-12-31 | Outpatient (CLI) | payer OTHER ==
[~2016-12-31] MED LIST changes: +ASPI81TA28 PO; +ATRIN INH; +BRIO INH; +CLR10 PO; -IPRA17AE2 INH; +MONT1TAB3 PO; +QUET1TAB30 PO; -QVRINH40 INH; -TRAZ100T29 PO; -TRAZ50TA35 PO; -[UNRECOGNIZED DRUG - CODE] PO
--- NOTE | 2017-01-01 11:47 | PULMONARY FUNCTION TEST ---
These readings are based off ATS criteria. SPIROMETRY: Within normal limits. BRONCHODILATOR: No significant response. LUNG VOLUMES: Within normal limits. DIFFUSION: Within normal limits. INTERPRETATION: Normal pulmonary function study.
== END | disposition home or self-care (01) ==
LOC: C.RC 13:01
PROVIDERS: ATTEND Internal Medicine Critical Care Medicine
DX: J30.9 Allergic rhinitis, unspecified (principal); J45.909 Unspecified asthma, uncomplicated; J98.11 Atelectasis; R06.02 Shortness of breath

== ENCOUNTER → 2017-01-03 | Outpatient (CLI) | payer OTHER ==
--- NOTE | 2017-01-03 13:53 | DIAGNOSTIC IMAGING REPORT ---
CT OF THE CHEST WITHOUT IV CONTRAST CLINICAL HISTORY: Abnormal CT scan. Shortness of breath on exertion. Chronic cough. COMPARISON STUDY: Chest CT July 07, 2015 and chest radiograph September 05, 2016. CT DOSE: 297.58 mGycm TECHNIQUE: Axial images of the chest were obtained without IV contrast. Images were reviewed in the axial, sagittal, and coronal planes. IV contrast was not administered for this examination. A dose lowering technique was utilized adhering to the principles of ALARA. FINDINGS: A right breast silicone implant is noted. There may be a previous left breast reconstruction. No enlarged axillary, mediastinal or hilar lymph nodes are present. The size of the heart is normal. There is no pericardial effusion. Central airways are patent. No consolidation is identified to suggest pneumonia. There are no suspicious pulmonary nodules. Minimal subpleural opacities reflect atelectasis. There is no honeycombing. No traction bronchiectasis is present. There is no cavitation. Bony thorax and upper abdomen are unremarkable. IMPRESSION: 1. No acute intrathoracic findings. 2. No CT evidence of interstitial lung disease. 3. No thoracic lymphadenopathy. Electronically signed by: Pio Ospina M.D. 01/03/2017 1:51 PM Dictated Date/Time: 01/03/2017 1:45 PM
--- NOTE | 2017-01-03 13:53 | DIAGNOSTIC IMAGING REPORT ---
SINUS CT WITHOUT CONTRAST CLINICAL HISTORY: Chronic cough. Allergic rhinitis. COMPARISON STUDY: None. Technique: Helical axial images of the sinuses were obtained without IV contrast. Coronal reformats were viewed. A dose lowering technique was utilized adhering to the principles of ALARA. CT DOSE: 229.05 mGycm FINDINGS: The mastoid air cells are clear. There is no fluid within the middle ears. Orbits are unremarkable. No mass or bony destruction is identified within the nasal cavity or the sinuses. Postoperative findings involving the medial duarte of both maxillary sinuses are noted. There are also suspected post surgical findings within the ethmoid air cells. The right maxillary sinus is diminutive, a chronic finding. There is a small anurag bullosa of the left middle turbinate. Mild mucosal thickening of the sinuses is noted. This mucosal thickening narrows but does not occlude the major drainage pathways. There is no significant deviation of the nasal septum. Right frontal ethmoid sinus bony thickening is chronic. IMPRESSION: 1. Mild mucosal thickening of the sinuses. No CT evidence of acute sinusitis. 2. Postsurgical findings within the sinuses, as described above. Electronically signed by: Pio Ospina M.D. 01/03/2017 1:52 PM Dictated Date/Time: 01/03/2017 1:40 PM
== END | disposition home or self-care (01) ==
LOC: C.CTS 12:54
PROVIDERS: ATTEND Internal Medicine Critical Care Medicine
DX: J30.9 Allergic rhinitis, unspecified (principal); R05 Cough; R91.8 Other nonspecific abnormal finding of lung field; J98.11 Atelectasis; R06.02 Shortness of breath

== ENCOUNTER → 2017-01-26 | Outpatient (CLI) | payer OTHER ==
--- NOTE | 2017-01-27 05:33 | PAP/PSG TECHNICIAN REPORT ---
[facility] Financial Services Education Consultant Polysomnogram Report Study name: None Report date: 01/27/2017 Study date: 01/26/2017 Referring Physician: DR. VITO LANG Name: MAC SIDDIQUI Interpreting Physician: Josue Moss D.O. Date of : 1945 Financial Services Education Consultant: ALINE Merino. Sex: Female Age: 71 StudyType: PSG Weight: 197 lbs Height: 71 years, Height 4' 8.5" Neck Circum:14inches BMI: 43.38 Medications: Loratadine 10mg, Atrovent HFA 17mcg/act, Breo Ellipta 200-25mcg/inh, Montelukast Sodium 10mg, ASA 81mg, Isosorbide Mononitrate Er 60mg, Nitroglycerine 0.4mg, Bupropion HCl Er 150mg, Trintellix 20mg, Omeprazole 40mg, Citracel, D 1000unit, Mag Ox 400mg, Triamterene -HCTZ 37.5-25mg, Docusate Sodium 100mg, Verapamil HCl ER 300mg, Hydroxyzine HCl 25mg, Multi vitamin, Trazodone HCl 100mg Patient History Study started on room air with no ETCO2 monitoring in room #8. 71 yr old female here tonight for a diagnostic psg. She had a diagnostic psg done at [facility] years ago but it was negative for ROLANDO and she was not treated for upper airway resistance syndrome, according to the patient. She did see the sleep doctor after he sleep study but there was no treatment involved. 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 She sleeps on her sides and is a very loud snorer. She has had a cough since June of this year. She has asthma, is a former smoker, has PSVT and Prinzmetal's angina. She also has a history of breast cancer and HTN. Her ESS=8/24. Her neck circ=14 inches. Parameters Monitored NPSG: E1-M2, E2-M1, Fp1-M2, Fp2-M1, F3-M2, F4-M2, F4-M1, C3-M2, C4-M2, C4-M1, O1-M2, O2-M2, O2-M1, T3-M2, T4-M1, P3-M2, P4-M1, CHIN1, CHIN2, HR, EKG, Legs, PFLOW, SNOR, FLOW, CFLOW, Tidal Volume, THOR, ABDO, SpO2, PLTH, CPRESS, ETCO2 Wave, ETCO2, pH Sleep Architecture Sleep Stages Time at Lights Off 10:15:57 PM STAGES Time (min.) TST (%) Time at Lights On 5:28:57 AM Wake 38.0 -- Total Recording Time (TRT) 433.00 min. N1 11.0 3 Total Sleep Period (TSP) 418.5 min. N2 220.5 56 Total Sleep Time (TST) 395.0min. N3 84.5 21 Awake Time 38.0 min. REM 79.0 20 Wake after Sleep Onset 23.5 min. Sleep Efficiency (SE) 91 % Sleep Onset Latency (ANAHI) 14.5 min. Number of Stage 1 Shifts None Awakenings 14 Stage Changes 69 Number of REM periods 5 REM 79.0 20 REM Latency 158.5 min. NREM 316.0 80 Body Position Analysis Supine Right Left Side Prone Vertical Total Sleep Time (min.) 83.2 63.4 255.7 319.09 0.0 0.0 Total Sleep Time (%) 19% 16% 65% 81 0% N/A% Total Sleep Time REM (min.) 0.0 0.0 79.0 None 0.0 0.0 Total Sleep Time NREM (min.) 75.9 63.4 176.7 None 0.0 0.0 Intermittent Wake (min.) 7.3 8.7 22.0 None 0.0 0.0 Total Sleep Period (%) 19% None None None None None Arousals Myoclonus (PLM) * Events Count Index Events Count Index Spontaneous 12 2 Events Awake (PLMW) 35 55.3 Respiratory 8 1.5 Events Asleep w/ Arousal (PLMA) 5 0.8 PLM 5 1 Events Asleep w/o Arousal (PLMS) 137 20.8 Snoring 6 1 Total Asleep 142 21.6 Total 30 5 Total 177 25 Respiratory Analysis * CA OA MA CH H RERA Total Count 1 1 0 0 13 1 15 Index 0.2 0.2 0.0 0 2.0 0 2.4 Mean Duration 15.3 14.8 0.0 0.00 18.5 25.2 18.4 Longest Duration 15.3 14.8 0.0 0.00 0.0 25.2 29.5 Respiratory Event Summary Total Supine ~Supine Right Left Prone REM NREM Apneas Count 2 1 1 0 1 N/A 0 2 Index 0.3 1 0 0.0 0.2 N/A 0 0 Hypopneas (4% Desat) Count 13 11 2 0 2 N/A 0 13 Index 2.0 8.7 0 0.0 0.5 N/A 0.0 2.5 Apneas & All Hypopneas Count 15 12 3 0 3 N/A 0 15 Index 2.3 9 1 0 1 N/A 0.0 2.8 Respiratory Events (Transmission Tester+All Hyp+RERA) Count 15 12 4 0 4 N/A 0 15 Index 2.4 9 1 0.0 0.9 N/A 0.0 3.0 Respiratory Related Arousal Count 8 12 1 0 1 N/A 0 10 Index 1.5 7 0 0 0 N/A 0 2 Snoring Analysis Supine Right Left Prone REM NREM Total Snore duration 85.0 min Snores count 223 841 1,714 N/A 467 2,311 2,778 Snore mean duration 1.8 Sec Snores index 176 796 402 N/A 354.7 438.8 422.0 TST with snoring (%) 21.5% Desaturation Event Summary: Minimum %SpO2 Event Count Mean/Min/Max Duration(sec.) Desaturation Index % Time In Bed > 90 28 15.8 / 4.8 / 47.5 4.1 94.9 86 - 90 2 13.3 / 4.8 / 21.8 5.5 5.0 81 - 85 0 N/A 0.0 0.0 76 - 80 0 N/A 0.0 0.0 71 - 75 0 N/A 0.0 0.0 66 - 70 0 N/A 0.0 0.0 61 - 65 0 N/A 0.0 0.0 56 - 60 0 N/A 0.0 0.0 51 - 55 0 N/A 0.0 0.0 < 50 0 N/A 0.0 0.0 Total REM NREM Awake <50% 0.0 min. 0.0 min. 0.0 min. 0.0 min. 51 - 60% 0.0 min. 0.0 min. 0.0 min. 0.0 min. 61 - 70% 0.0 min. 0.0 min. 0.0 min. 0.0 min. 71 - 80% 0.1 min. 0.0 min. 0.0 min. 0.1 min. 81 - 90% 21.8 min. 12.2 min. 9.2 min. 0.4 min. 91 - 100% 409.7 min. 66.8 min. 306.8 min. 36.2 min. Average 93 93 92 94 Minimum SpO2 76 89 89 76 Desaturation Event Index 4.0 0.0 4.7 9.5 # Desat. Events below 89% 2 N/A N/A 2 Time(%) with Saturation below 89% 0.1 0.0 0.0 0.1 Time(min.) with Saturation below 89% 0.3 0.0 0.0 0.3 Time (mins) REM (mins) NREM (mins) % of TST SpO2 Below 90% 8 N/A N8 0.2 SpO2 Below 88% 0 0 0 0 Heart Rate Analysis Min (bpm) Max (bpm) Average (bpm) Awake 56 90 69 NREM 53 81 64 REM 53 72 60 Overall 53 81 63 Supplemental O2 Values Minimum O2 level: None Value Start Time End Time Financial Services Education Consultant Comments Mrs. Siddiqui slept in the right, left and supine positions. No cardiac arrhythmia noted. Some leg movements were noted. No bruxism noted. Snoring was noted and scored as a 5 on a scale of 1 through 5. (0=no snoring, 5=snoring loud enough to be heard through a closed door or down the farmer way) She did not use the restroom during the night. She stated that she slept about the same as when at home. The final report will be interpreted and signed by a sleep physician. The completed physician report will then be placed in the patient medical record. Therapy (cm H2O) 0 TIB (min.) 433.0 TST (min.) 395.0 Sleep Onset (min.) 14.5 REM Onset From Sleep (min.) 158.5 Sleep Efficiency % 91 Wakefulness (%) 9 Wakefulness (min.) 38.0 NREM 1 (%) 3 NREM 1 (min.) 11.0 NREM 2 (%) 56 NREM 2 (min.) 220.5 NREM 3 (%) 21 NREM 3 (min.) 84.5 REM (%) 20 REM (min.) 79.0 # Arousals 30 Arousal Index 5 # Snore 2,778 Snore Index 422.0 AHI 2.3 AHI Supine 9 AHI Non-Supine 1 NREM AHI 2.8 REM AHI 0.0 RDI 2.4 # Obstructive Apnea 1 # Central Apnea 1 # Mixed Apnea 0 # Hypopneas 13 RERAs 1 Total Respiratory Events 17 Time Below SpO2 89% (min.) 0.0 Mean NREM SpO2 (%) 92 Mean REM SpO2 (%) 93 Mean Sleep SpO2 (%) 93 Min NREM SpO2 (%) 89 Min REM SpO2 (%) 89 Position Supine (min.) 83.2 Position Non-supine (min.) 319.1 LM Index Sleep 21.6 LM Index NREM 22.6 LM Index REM 17.5 Mean Heart Rate (bpm) 63 Min Heart Rate (bpm) 53
--- NOTE | 2017-01-29 14:29 | Sleep Study ---
Sleep Study Report Date of Service: 01/26/2017 Sleep Study Report Clinical data: The patient is a 71-year-old female with a history of snoring, fatigue, an [place] sleepiness score of 8. Her BMI is 43.38. She has a history of asthma. This was an in-lab overnight polysomnography. Sleep architecture: The total sleep period was 418.5 minutes. The total sleep time was 395.0 minutes. Sleep efficiency was normal at 91 percent. The sleep latency was normal at 14.5 minutes. Wake after sleep onset was 23.5 minutes. The REM latency was prolonged to 158.5 minutes. Sleep consisted of stage N1 3 percent, stage N2 56 percent, stage N3 21 percent , and stage REM 20 percent. Arousal data: The patient had a total of 30 arousals including 12 spontaneous arousals, 8 respiratory arousals, 5 PLM arousals, and 6 snoring arousals. The arousal index was 5. PLM data: The patient had a total of 142 periodic limb movements of sleep for a PLM index of 21.6. There were 5 arousals associated with limb movements for a PLM arousal index of only 0.8. EKG: The underlying cardiac rhythm was normal sinus. The cardiac rates ranged from 53 to 90 beats per minute. The average heart rate was 63 beats per minute. Respiratory data: The patient had a total of 15 respiratory events including 1 central apnea, 1 obstructive apnea, and 13 hypopneas. The hypopneas were scored according to the 4 percent desaturation rule. The longest apnea was 15.3 seconds. The mean duration of the hypopneas was 18.5 seconds. The apnea-hypopnea index was 2.3 events per hour. This would suggest no significant sleep apnea. Oximetry data: The average saturation for the night was 93 percent. The minimum recorded saturation was 76 percent. This was clearly a technical issue. The lowest true saturation was 89 percent. Aircraft De Icer Installer comments: The patient slept on the right, left, and supine positions. No cardiac arrhythmia noted. Some leg movements noted. No bruxism noted. Snoring was noted and scored as a 5 on a scale of 1 through 5. Impressions: 1. Primary snoring 2. Periodic limb movement disorder Comments: The patient had a normal sleep efficiency. Sleep architecture was normal. She had a mild number of arousals. She did have a modest number of limb movements but with few arousals associated with it. Thus I think it is unlikely the leg movements are contributing significantly to her complaints of fatigue. Her oxygenation was essentially normal throughout the night. Her sleep was well consolidated. She has no significant sleep apnea. Recommendations: 1. The patient has loud snoring. It would be advised that if possible she avoid sleeping in the supine position. During this study she spent approximately 19 percent of the night in the supine position. 2. The patient has an elevation of body mass index of 43.38. A weight reduction program would be advised. 3. The patient should be advised the appropriate principles of sleep hygiene including having a regular sleep-wake schedule and allowing 7.5-8 hours of sleep per night. Copies To 1: Josue Moss DO; Meena Oleary M.D.; Juve Morgan MD
== END | disposition home or self-care (01) ==
LOC: C.NEUR 21:00
PROVIDERS: ATTEND Internal Medicine Critical Care Medicine
DX: G47.33 Obstructive sleep apnea (adult) (pediatric) (principal)

== ENCOUNTER → 2017-05-07 | Outpatient (CLI) | payer OTHER ==
[2017-05-07 18:19] LABS: ALBUMIN 3.8 gm/dl (3.4-5.0); ALT/SGPT 24 U/L (12-78); BLOOD UREA NITROGEN 15 mg/dl (7-18); CALCIUM 9.1 mg/dl (8.5-10.1); CARBON DIOXIDE 30 mmol/L (21-32); CREATININE 0.82 mg/dl (0.60-1.20); GLUCOSE 98 mg/dl (70-99); POTASSIUM 3.9 mmol/L (3.5-5.1); SODIUM 137 mmol/L (136-145)
[2017-05-07 18:22] LABS: ALKALINE PHOSPHATASE 110 U/L (45-117); AST/SGOT 19 U/L (15-37); TOTAL PROTEIN 7.4 gm/dl (6.4-8.2)
[2017-05-08 06:22] LABS: HEMOGLOBIN A1C 5.4 % (4.5-5.6)
== END | disposition home or self-care (01) ==
LOC: C.LABMFLN 14:54
PROVIDERS: ATTEND Family Medicine
DX: R73.02 Impaired glucose tolerance (oral) (principal)

== ENCOUNTER 2017-08-16 18:44 | Emergency (ER) | payer OTHER ==
[~2017-08-16] VITALS: Ht 147.3 cm; Wt 99.3 kg
[2017-08-16 18:57] VITALS: TEMP 36.5; Ht 147.3 cm; Wt 99.3 kg
--- NOTE | 2017-08-16 19:40 | EMERGENCY ROOM VISIT NOTE ---
History Report prepared by Rashmi: Khari Blum Under the Supervision of: Dr. Bird Hernandez M.D. First contact with patient: 19:28 Chief Complaint: LEG PAIN,LEG INJURY Stated Complaint: SWOLLEN PAINFUL LEFT LEG History of Present Illness The patient is a 71 year old female who presents to the Emergency Room with complaints of severe, constant left calf pain beginning this morning. The patient notes that she sits a lot at work. The patient denies a history of blood clots, but notes that her sister has had blood clots in the past. She denies any fevers, chest pain, shortness of breath, abdominal pain, history of diabetes, recent travel, or history of kidney problems. The patient notes a history of breast cancer for which she had a mastectomy in 2009. She is currently in remission. She states that she takes a daily aspirin and notes a left knee replacement 8 years ago. Source of History: patient Onset: This morning Position: leg (left) Symptom Intensity: severe Quality: other (pain ) Timing: constant Modifying Factors (Worsening): other (none ) Associated Symptoms: No fevers, No chest pain, No SOB, No abdominal pain Review of Systems See HPI for pertinent positives & negatives. A total of 10 systems reviewed and were otherwise negative. Past Medical & Surgical Medical Problems: (1) Hypertension Surgical Problems: (1) H/O laminectomy (2) S/P knee replacement Old medical records were reviewed. Nurse's notes were reviewed and I agree with. Family History Cancer Diabetes mellitus Gallbladder disease Heart disease Hypertension Lung disease Social History Smoking Status: Never Smoker Alcohol Use: none Drug Use: none Marital Status: Housing Status: lives alone Occupation Status: employed Current/Historical Medications Scheduled Aspirin (Aspirin Ec), 81 MG PO DAILY Bupropion (Wellbutrin Sr), 150 MG PO QAM Cholecalciferol (Vitamin D 1000 Unit), 1,000 INTER.UNIT PO HS Isosorbide Mononitrate Ext Rel (Imdur Ext Rel), 60 MG PO QAM Loratadine (Claritin), 10 MG PO DAILY Magnesium Oxide (Mag-Ox), 400 MG PO QAM Montelukast Sodium (Singulair), 1 TAB PO DAILY Multiple Minerals W/ Vitamins (Citracal Plus), 1 TAB PO BID Multivitamin (Multivitamin), 1 TAB PO QAM Omeprazole (Prilosec), 40 MG PO BID Quetiapine Fumarate (Seroquel), 25 MG PO HS Triamterene/Hctz (Triamterene/Hctz 37.5-25MG), 0.5 TAB PO QAM Verapamil (Verelan Pm), 300 MG PO HS Vortioxetine HBr (Trintellix), 20 MG PO HS [Brio], 1 PUFF INH QAM Scheduled PRN Docusate Sodium (Colace), 1 CAP PO BID PRN for Constipation Ipratropium [place] (Atrovent Hfa), 2 PUFFS INH QID PRN for SOB/Wheezing Nitroglycerin (Nitrostat), 0.4 MG UT UD PRN for Chest Pain Allergies Coded Allergies: Adhesives (Unverified Allergy, Unknown, SOME TAPE BLISTERS-PAPER TAPE [place], 07/21/17) Celecoxib (Verified Allergy, Unknown, RASH,SWOLLEN FEET/HANDS, 07/21/17) Oxycodone (Verified Adverse Reaction, Severe, GI SYMPTOMS, 07/21/17) Rosuvastatin (Verified Adverse Reaction, Severe, MUSCLE PAIN/ABNORMAL LABS , 07/21/17) Albuterol (Verified Adverse Reaction, Unknown, CHEST PAIN, 07/21/17) Physical Exam Vital Signs Date Time Temp Pulse Resp B/P (MAP) Pulse Ox O2 Delivery O2 Flow Rate FiO2 08/16/17 18:57 36.5 71 20 144/73 95 Room Air Physical Exam General: Non-ill appearing older female in no acute distress. HEENT: Normal cephalic atraumatic. Pupils are equal round and reactive to light. Extraocular movements are intact. Oropharynx is pink with moist mucous membranes. No swelling of the mouth lips or tongue. Neck: Supple with a midline trachea. No meningeal signs or stiffness, no JVD or bruits. No Stridor. Chest: Clear to auscultation bilaterally. No wheezes or rhonchi. No increased work of breathing. Heart: regular rate and rhythm. Abdomen: Soft nontender, nondistended without rebound guarding or rigidity. Extremities: No cyanosis clubbing or edema. Small bruise on left calf. No redness or warmth. Left calf is mildly tender. Normal motor and sensation on pedal exam. Spine/Back. Non tender to palpation. No CVA tenderness Skin: Good turgor without rashes. Neurologic exam: Cranial nerves two through 12 are intact. Motor and sensation are intact and symmetrical throughout. Medical Decision & Procedures ER Provider Diagnostic Interpretation: Radiology results as stated below per my review and radiologist interpretation: ULTRASOUND LEFT LOWER EXTREMITY VENOUS CLINICAL HISTORY: Left leg pain. COMPARISON STUDY: No priors. TECHNIQUE: Real-time, grayscale, and color Doppler sonography of the deep veins of the left lower extremity was performed from the inguinal crease to the calf. Compression and augmentation were utilized. FINDINGS: There is no sonographic evidence of deep venous thrombosis identified in the left lower extremity. The common femoral, superficial femoral, and popliteal veins are patent and normally compressible. The greater saphenous vein and the profunda femoris vein at the junction with the common femoral vein are clear. The visualized calf veins are patent. IMPRESSION: There is no sonographic evidence of deep venous thrombosis identified in the left lower extremity. Electronically signed by: John Spear M.D. 08/16/2017 8:12 PM Dictated Date/Time: 08/16/2017 8:12 PM Laboratory Results 08/16/17 19:40 Red Blood Count 4.39, Mean Corpuscular Volume 90.7, Mean Corpuscular Hemoglobin 30.8, Mean Corpuscular Hemoglobin Concent 33.9, Mean Platelet Volume 10.0, Neutrophils (%) (Auto) 60.2, Lymphocytes (%) (Auto) 29.3, Monocytes (%) (Auto) 7.5, Eosinophils (%) (Auto) 2.5, Basophils (%) (Auto) 0.4, Neutrophils # (Auto) 4.28, Lymphocytes # (Auto) 2.08, Monocytes # (Auto) 0.53, Eosinophils # (Auto) 0.18, Basophils # (Auto) 0.03 08/16/17 19:40 Test 08/16/17 19:40 White Blood Count 7.11 K/uL (4.8-10.8) Red Blood Count 4.39 M/uL (4.2-5.4) Hemoglobin 13.5 g/dL (12.0-16.0) Hematocrit 39.8 % (37-47) Mean Corpuscular Volume 90.7 fL (80-100) Mean Corpuscular Hemoglobin 30.8 pg (25-34) Mean Corpuscular Hemoglobin Concent 33.9 g/dl (32-36) Platelet Count 231 K/uL (130-400) Mean Platelet Volume 10.0 fL (7.4-10.4) Neutrophils (%) (Auto) 60.2 % Lymphocytes (%) (Auto) 29.3 % Monocytes (%) (Auto) 7.5 % Eosinophils (%) (Auto) 2.5 % Basophils (%) (Auto) 0.4 % Neutrophils # (Auto) 4.28 K/uL (1.4-6.5) Lymphocytes # (Auto) 2.08 K/uL (1.2-3.4) Monocytes # (Auto) 0.53 K/uL (0.11-0.59) Eosinophils # (Auto) 0.18 K/uL (0-0.5) Basophils # (Auto) 0.03 K/uL (0-0.2) RDW Standard Deviation 45.2 fL (36.4-46.3) RDW Coefficient of Variation 13.6 % (11.5-14.5) Immature Granulocyte % (Auto) 0.1 % Immature Granulocyte # (Auto) 0.01 K/uL (0.00-0.02) Prothrombin Time 10.0 SECONDS (9.0-12.0) Prothromb Time International Ratio 1.0 (0.9-1.1) Activated Partial Thromboplast Time 25.9 SECONDS (21.0-31.0) Partial Thromboplastin Ratio 1.0 Anion Gap 6.0 mmol/L (3-11) Est Creatinine Clear Calc Drug Dose 47.0 ml/min Estimated GFR () 57.0 Estimated GFR (Non- 49.2 BUN/Creatinine Ratio 13.1 (10-20) Calcium Level 8.8 mg/dl (8.5-10.1) Laboratory studies as stated above per my review. ED Course 1930: Past medical records reviewed. The patient was evaluated in room C7, and a complete history and physical examination were performed. 2021: Upon reevaluation, the patient is resting comfortably. I discussed the results and treatment plan with her. She verbalized agreement of the treatment plan. The patient was discharged home. Medical Decision Differentials include, but are not limited to; DVT, musculoskeletal, electrolyte or metabolic abnormality. This patient comes in as described above. She was placed in room C7. She is here for treatment and evaluation of left leg pain. She is concerned she could have a DVT. She has no history of DVT. On exam, she is no redness or warmth to suggest infection. She has normal neurovascular status status and normal pulses. She had blood work obtained as well as an ultrasound. Ultrasound was unremarkable. Blood work was unremarkable. She does have a small bruise and this may be related bruise or could be musculoskeletal. There is nothing to suggest compartment syndrome. She will use [id number] pain medication and do not exceed [id number] recommended dosages. Return if: increasing pain, worsening of symptoms, numbness or weakness, any new problems or concerns. Medication Reconcilliation Current Medication List: was personally reviewed by me Blood Pressure Screening Patient's blood pressure: Elevated blood pressure Blood pressure disposition: Referred to PCP Impression Primary Impression: Leg pain, left Scribe Attestation The scribe's documentation has been prepared under my direction and personally reviewed by me in its entirety. I confirm that the note above accurately reflects all work, treatment, procedures, and medical decision making performed by me. Departure Information Dispostion Home / Self-Care Referrals Meena Oleary M.D. (PCP) Forms HOME CARE DOCUMENTATION FORM, IMPORTANT VISIT INFORMATION Patient Instructions My [facility] [employer] Additional Instructions Rest. Drink plenty of fluids. Return if: Increasing pain, worsening of symptoms, numbness or weakness, fever chills, any new problems or concerns Follow-up with your doctor on Friday for recheck
[2017-08-16 19:50] LABS: BASO % 0.4 %; BASO ABS # 0.03 K/uL (0-0.2); EOS % 2.5 %; EOS ABS # 0.18 K/uL (0-0.5); HEMATOCRIT 39.8 % (37-47); HEMOGLOBIN 13.5 g/dL (12.0-16.0); IG# 0.01 K/uL (0.00-0.02); LYMPH % 29.3 %; LYMPH ABS # 2.08 K/uL (1.2-3.4); MEAN CELL VOLUME 90.7 fL (80-100); MEAN CORPUSCULAR HEMOGLOBIN 30.8 pg (25-34); MEAN CORPUSCULAR HGB CONC 33.9 g/dl (32-36); MONO % 7.5 %; MONO ABS # 0.53 K/uL (0.11-0.59); NEUT % 60.2 %; NEUT ABS # 4.28 K/uL (1.4-6.5); PLATELET COUNT 231 K/uL (130-400); RED CELL DISTRIBUTION WIDTH CV 13.6 % (11.5-14.5); RED CELL DISTRIBUTION WIDTH SD 45.2 fL (36.4-46.3); WHITE BLOOD COUNT 7.11 K/uL (4.8-10.8)
[2017-08-16 19:59] LABS: PTT PATIENT 25.9 SECONDS (21.0-31.0)
[2017-08-16 20:07] LABS: CALCIUM 8.8 mg/dl (8.5-10.1); CREATININE 1.13 mg/dl (0.60-1.20); POTASSIUM 3.7 mmol/L (3.5-5.1)
--- NOTE | 2017-08-16 20:13 | DIAGNOSTIC IMAGING REPORT ---
ULTRASOUND LEFT LOWER EXTREMITY VENOUS CLINICAL HISTORY: Left leg pain. COMPARISON STUDY: No priors. TECHNIQUE: Real-time, grayscale, and color Doppler sonography of the deep veins of the left lower extremity was performed from the inguinal crease to the calf. Compression and augmentation were utilized. FINDINGS: There is no sonographic evidence of deep venous thrombosis identified in the left lower extremity. The common femoral, superficial femoral, and popliteal veins are patent and normally compressible. The greater saphenous vein and the profunda femoris vein at the junction with the common femoral vein are clear. The visualized calf veins are patent. IMPRESSION: There is no sonographic evidence of deep venous thrombosis identified in the left lower extremity. Electronically signed by: John Spear M.D. 08/16/2017 8:12 PM Dictated Date/Time: 08/16/2017 8:12 PM
[2017-08-16 20:29] VITALS: BP 139/64; PULSE 63; O2SAT 93
== END 2017-08-16 20:30 | disposition home or self-care (01) ==
LOC: C.EDB 18:45 → C.EDC 20:30
DX: M79.605 Pain in left leg (principal); I10 Essential (primary) hypertension; Z79.82 Long term (current) use of aspirin; Z88.8 Allergy status to other drugs, medicaments and biological substances; Z88.5 Allergy status to narcotic agent

== ENCOUNTER 2017-09-08 11:52 | Observation (INO) | payer OTHER ==
[~2017-09-08] VITALS: Ht 142.2 cm; Wt 97.4 kg
[2017-09-08 13:30] LABS: BASO % 0.6 %; BASO ABS # 0.04 K/uL (0-0.2); EOS % 2.1 %; EOS ABS # 0.13 K/uL (0-0.5); HEMATOCRIT 37.1 % (37-47); HEMOGLOBIN 12.5 g/dL (12.0-16.0); IG# 0.01 K/uL (0.00-0.02); LYMPH % 23.2 %; LYMPH ABS # 1.47 K/uL (1.2-3.4); MEAN CELL VOLUME 89.4 fL (80-100); MEAN CORPUSCULAR HEMOGLOBIN 30.1 pg (25-34); MEAN CORPUSCULAR HGB CONC 33.7 g/dl (32-36); MEAN PLATELET VOLUME 9.8 fL (7.4-10.4); MONO ABS # 0.51 K/uL (0.11-0.59); NEUT % 65.9 %; NEUT ABS # 4.18 K/uL (1.4-6.5); PLATELET COUNT 218 K/uL (130-400); RED CELL DISTRIBUTION WIDTH CV 13.5 % (11.5-14.5); RED CELL DISTRIBUTION WIDTH SD 43.9 fL (36.4-46.3); WHITE BLOOD COUNT 6.34 K/uL (4.8-10.8)
[2017-09-08 13:35] LABS: PTT PATIENT 25.2 SECONDS (21.0-31.0)
[2017-09-08 13:44] LABS: CALCIUM 9.3 mg/dl (8.5-10.1); CREATININE 0.81 mg/dl (0.60-1.20); POTASSIUM 3.8 mmol/L (3.5-5.1)
--- NOTE | 2017-09-08 13:48 | DIAGNOSTIC IMAGING REPORT ---
CHEST 2 VIEWS ROUTINE HISTORY: Short of breath. Assess for pneumonia. COMPARISON: Chest 09/05/2016. FINDINGS: No focal lung consolidations to suggest pneumonia. No evidence for pulmonary edema. The heart remains top normal in size. No pleural effusions. No pneumothorax. Prior cholecystectomy. Small linear density within the left midlung zone favors scarring or atelectasis. IMPRESSION: No acute process. Electronically signed by: Mihir Mcneill M.D. 09/08/2017 1:47 PM Dictated Date/Time: 09/08/2017 1:45 PM
--- NOTE | 2017-09-08 14:18 | DIAGNOSTIC IMAGING REPORT ---
BILATERAL LOWER EXTREMITY VENOUS DOPPLER HISTORY: Acute bilateral lower extremity pain and swelling eval for dvt COMPARISON STUDY: Left lower extremity duplex venous Doppler study 08/16/2017. FINDINGS: There is normal compressibility, flow, and augmentation within the bilateral lower extremity deep venous systems. Limited study secondary to patient body habitus. IMPRESSION: No sonographic evidence of deep venous thrombosis within the right or left lower extremity. Electronically signed by: Noel Pyle M.D. 09/08/2017 2:16 PM Dictated Date/Time: 09/08/2017 2:15 PM
[2017-09-08] MEDS ORDERED: ONDANSETRON INJ 2 MG/ML 2 ML VIAL IV PRN (15:45)
[2017-09-08] MEDS ORDERED: ACETAMINOPHEN 325 MG TAB PO PRN (15:45)
[2017-09-08] MEDS ORDERED: MAGNESIUM HYDROXIDE SUSP 30 ML UDC PO PRN (15:45)
[2017-09-08] MEDS ORDERED: DOCUSATE SODIUM 100 MG CAP PO PRN (16:00)
[2017-09-08] MEDS ORDERED: IV FLUIDS COMPLETED PRN (16:00)
[2017-09-08] MEDS ORDERED: IPRATROPIUM BROMIDE HFA INHALER INH PRN (16:00)
[2017-09-08] MEDS ORDERED: NITROGLYCERIN 0.4 MG SL PER TAB CHARGE UT PRN (16:00)
--- NOTE | 2017-09-08 16:37 | History and Physical ---
History & Physical Date & Time of Service: September 08, 2017 at 15:57 Chief Complaint: Sob, Legs Swelling, Dr Referred Dr.k. Greer Primary Care Physician: Meena Oleary M.D. History of Present Illness Source: patient 72 y/o F c/o SOB, weakness, muscle/joint pain. Pt states her sx started around last Friday and were much worse by . She has never had anything like this, so she came in for evaluation. Pt states her SOB is with any ambulation and also at rest. She notes that she is SOB during our exam while she eats johana crackers. Her muscle/joint pain is mostly her LE but also in her UE. She has been lightheaded as well with ambulation. She frankly denies chest pain. She does have hx of asthma and has not missed her medications, nor that this feel like when she has been SOB due to asthma. She states she has had LE swelling with this, but that her LE are not swollen at present. She has been able to eat and drink without issue. Denies fever. At present, she feels SOB and "just overall bad". 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 Father s/p [place] at 79 y/o Mother with hx of heart problems Social History Smoking Status: Former Smoker (quit over 30 yrs ago) Alcohol Use: none Drug Use: none Marital Status: Housing status: lives alone Occupational Status: employed Immunizations History of Influenza Vaccine: Yes History of Tetanus Vaccine?: Yes History of Pneumococcal: No History of Hepatitis B Vaccine: Yes Allergies Coded Allergies: Celecoxib (Verified Allergy, Intermediate, RASH,SWOLLEN FEET/HANDS, ) Albuterol (Verified Adverse Reaction, Intermediate, CHEST PAIN, 09/08/17) Oxycodone (Verified Adverse Reaction, Intermediate, GI SYMPTOMS, 09/08/17) Rosuvastatin (Verified Adverse Reaction, Intermediate, MUSCLE PAIN/ ABNORMAL LABS, 09/08/17) Adhesives (Verified Adverse Reaction, Mild, SOME TAPE BLISTERS-PAPER TAPE [place], 09/08/17) Home Medications Scheduled Aspirin (Aspirin Ec), 81 MG PO DAILY Bupropion (Wellbutrin Sr), 150 MG PO QAM Cholecalciferol (Vitamin D 1000 Unit), 1,000 INTER.UNIT PO HS Isosorbide Mononitrate Ext Rel (Imdur Ext Rel), 60 MG PO QAM Loratadine (Claritin), 10 MG PO DAILY Magnesium Oxide (Mag-Ox), 400 MG PO QAM Montelukast Sodium (Singulair), 1 TAB PO DAILY Multiple Minerals W/ Vitamins (Citracal Plus), 1 TAB PO BID Multivitamin (Multivitamin), 1 TAB PO QAM Omeprazole (Prilosec), 40 MG PO BID Quetiapine Fumarate (Seroquel), 25 MG PO HS Triamterene/Hctz (Triamterene/Hctz 37.5-25MG), 0.5 TAB PO QAM Verapamil (Verelan Pm), 300 MG PO HS Vortioxetine HBr (Trintellix), 20 MG PO HS [Brio], 1 PUFF INH QAM Scheduled PRN Docusate Sodium (Colace), 1 CAP PO BID PRN for Constipation Ipratropium [place] (Atrovent Hfa), 2 PUFFS INH QID PRN for SOB/Wheezing Nitroglycerin (Nitrostat), 0.4 MG UT UD PRN for Chest Pain Review of Systems Pertinent positives and negatives reviewed in HPI--all others negative Physical Exam Vital Signs Date Time Temp Pulse Resp B/P (MAP) Pulse Ox O2 Delivery O2 Flow Rate FiO2 09/08/17 15:25 56 18 144/54 95 Room Air 09/08/17 13:57 52 16 159/59 95 Room Air 09/08/17 13:20 95 Room Air 09/08/17 12:48 Room Air 92 09/08/17 12:30 58 09/08/17 12:15 36.6 63 20 123/65 95 Room Air General Appearance: WD/WN, no apparent distress Head: normocephalic, atraumatic Eyes: normal inspection, sclerae normal Respiratory/Chest: lungs clear, normal breath sounds, no respiratory distress Cardiovascular: regular rate, rhythm, normal peripheral pulses Abdomen/GI: non tender, soft Extremities/Musculoskelatal: + calf tenderness (diffuse, b/l into thighs), + pertinent finding (denies current swelling, but appears to have chronic LE swelling) Neurologic/Psych: alert, normal mood/affect, oriented x 3 Skin: normal color, warm/dry Diagnostics Laboratory Results Results Past 24 Hours Test 09/08/17 13:15 09/08/17 13:26 09/08/17 15:43 Range/Units White Blood Count 6.34 4.8-10.8 K/uL Red Blood Count 4.15 4.2-5.4 M/uL Hemoglobin 12.5 12.0-16.0 g/dL Hematocrit 37.1 37-47 % Mean Corpuscular Volume 89.4 80-100 fL Mean Corpuscular Hemoglobin 30.1 25-34 pg Mean Corpuscular Hemoglobin Concent 33.7 32-36 g/dl Platelet Count 218 130-400 K/uL Mean Platelet Volume 9.8 7.4-10.4 fL Neutrophils (%) (Auto) 65.9 % Lymphocytes (%) (Auto) 23.2 % Monocytes (%) (Auto) 8.0 % Eosinophils (%) (Auto) 2.1 % Basophils (%) (Auto) 0.6 % Neutrophils # (Auto) 4.18 1.4-6.5 K/uL Lymphocytes # (Auto) 1.47 1.2-3.4 K/uL Monocytes # (Auto) 0.51 0.11-0.59 K/uL Eosinophils # (Auto) 0.13 0-0.5 K/uL Basophils # (Auto) 0.04 0-0.2 K/uL RDW Standard Deviation 43.9 36.4-46.3 fL RDW Coefficient of Variation 13.5 11.5-14.5 % Immature Granulocyte % (Auto) 0.2 % Immature Granulocyte # (Auto) 0.01 0.00-0.02 K/uL Prothrombin Time 10.1 9.0-12.0 SECONDS Prothromb Time International Ratio 1.0 0.9-1.1 Activated Partial Thromboplast Time 25.2 21.0-31.0 SECONDS Partial Thromboplastin Ratio 1.0 Sodium Level 139 136-145 mmol/L Potassium Level 3.8 3.5-5.1 mmol/L Chloride Level 105 98-107 mmol/L Carbon Dioxide Level 29 21-32 mmol/L Anion Gap 5.0 3-11 mmol/L Blood Urea Nitrogen 12 7-18 mg/dl Creatinine 0.81 0.60-1.20 mg/dl Est Creatinine Clear Calc Drug Dose 61.8 ml/min Estimated GFR () 84.7 Estimated GFR (Non- 73.1 BUN/Creatinine Ratio 15.0 10-20 Random Glucose 102 70-99 mg/dl Calcium Level 9.3 8.5-10.1 mg/dl Pro-B-Type Natriuretic Peptide 335 0-900 pg/ml Bedside Troponin I < 0.030 0-0.045 ng/ml Diagnostic Radiology CXR neg for acute LE US neg for DVT b/l Impression Assessment and Plan 72 y/o F who was admitted on 09/08 for cardiac r/o Cardiac r/o: denies CP, but has SOB Trop neg x1, serials pending EKG neg for acute, but do note a 1st degree AV block that has been seen in the past CXR neg for acute BNP WNL Stress ECHO 08/2016 was neg with EF 60-65%, will repeat ECHO given new sx with 1st degree AV block noted LE US neg for DVT, will hold on CTA given VSS HTN: stable, continue home meds Asthma: stable, continue home meds Depression: stable, continue home meds GERD: stable, continue home meds Aortic sclerosis/CAD: continue aspirin h/o cath x2, no stents Other: Full code AHA diet SCDs for DVT proph Resuscitation Status VTE Prophylaxis Will order VTE Prophylaxis: Yes
[2017-09-08 17:43] VITALS: BP 147/73; PULSE 54; TEMP 36.4; O2SAT 93
--- NOTE | 2017-09-08 19:14 | EMERGENCY ROOM VISIT NOTE ---
History Report prepared by Rashmi: Javier Garcia Under the Supervision of: Dr. Jvue Thompson M.D. First contact with patient: 13:11 Chief Complaint: SHORTNESS OF BREATH Stated Complaint: SOB, LEGS SWELLING, DR REFERRED Nursing Triage Summary: HX OF ASTHMA. BECOMING MORE SOB AND LEG EDEMA WHEN SITTING . NO EDEMA NOW History of Present Illness The patient is a 72 year old female who presents to the Emergency Room with complaints of constant SOB beginning a few days ago. The patient states that she has a history of asthma and notes that her current symptoms feel different than her previous asthma flare ups. She notes that she has been having SOB for a few days, but reports that her symptoms worsened last night. She reports that she is not wheezing and has been using her nebulizer with no relief of her symptoms. The patient states that her symptoms worsen at night and when she lies flat and exerts herself. She notes that she is also having chest tightness and feels as though she cannot get a full breath. She also complains of leg soreness, generalized achiness, weakness, and shakiness. She reports that she experiences leg swelling at work and a sharp pain in her groin that goes down to her knees when she gets up from a chair. She denies any fever, cough, abdominal pain, diarrhea, melena, and vomiting. The patient states that she has a history of back problems, aortic sclerosis, occasional fast heart beats, and a cardiac cath. She notes that she was referred to the emergency department by her PCP. Source of History: patient Onset: a few days ago Position: chest Quality: other (SOB) Timing: constant Modifying Factors (Worsening): exertion, other (her symptoms worsen at night and when she lies flat) Associated Symptoms: + weakness, No fevers, No cough, No vomiting, No abdominal pain, No melena, No diarrhea Note: She also complains of chest tightness, leg soreness, leg edema, generalized achiness, shakiness, and a sharp pain in her groin that runs to her knees when she gets up from a chair. The patient denies any wheezing. Review of Systems See HPI for pertinent positives & negatives. A total of 10 systems reviewed and were otherwise negative. Past Medical & Surgical Medical Problems: (1) Anxiety (2) Aortic valve sclerosis (3) Asthma (4) Back problem (5) Carpal tunnel syndrome (6) Depression (7) Ectopic (8) Hypertension (9) Hypertension (10) SOB (shortness of breath) Surgical Problems: (1) H/O knee surgery (2) H/O laminectomy (3) H/O mastectomy (4) H/O tubal ligation (5) History of cardiac cath (6) Hx of cholecystectomy (7) S/P knee replacement Family History Cancer Diabetes mellitus Gallbladder disease Heart disease Hypertension Lung disease Social History Smoking Status: Former Smoker Alcohol Use: none Drug Use: none Marital Status: Housing Status: lives alone Occupation Status: employed Current/Historical Medications Scheduled Aspirin (Aspirin Ec), 81 MG PO DAILY Bupropion (Wellbutrin Sr), 150 MG PO QAM Cholecalciferol (Vitamin D 1000 Unit), 1,000 INTER.UNIT PO HS Isosorbide Mononitrate Ext Rel (Imdur Ext Rel), 60 MG PO QAM Loratadine (Claritin), 10 MG PO DAILY Magnesium Oxide (Mag-Ox), 400 MG PO QAM Montelukast Sodium (Singulair), 1 TAB PO DAILY Multiple Minerals W/ Vitamins (Citracal Plus), 1 TAB PO BID Multivitamin (Multivitamin), 1 TAB PO QAM Omeprazole (Prilosec), 40 MG PO BID Quetiapine Fumarate (Seroquel), 25 MG PO HS Triamterene/Hctz (Triamterene/Hctz 37.5-25MG), 0.5 TAB PO QAM Verapamil (Verelan Pm), 300 MG PO HS Vortioxetine HBr (Trintellix), 20 MG PO HS [Brio], 1 PUFF INH QAM Scheduled PRN Docusate Sodium (Colace), 1 CAP PO BID PRN for Constipation Ipratropium Calera (Atrovent Hfa), 2 PUFFS INH QID PRN for SOB/Wheezing Nitroglycerin (Nitrostat), 0.4 MG UT UD PRN for Chest Pain Allergies Coded Allergies: Celecoxib (Verified Allergy, Intermediate, RASH,SWOLLEN FEET/HANDS, ) Albuterol (Verified Adverse Reaction, Intermediate, CHEST PAIN, 09/08/17) Oxycodone (Verified Adverse Reaction, Intermediate, GI SYMPTOMS, 09/08/17) Rosuvastatin (Verified Adverse Reaction, Intermediate, MUSCLE PAIN/ ABNORMAL LABS, 09/08/17) Adhesives (Verified Adverse Reaction, Mild, SOME TAPE BLISTERS-PAPER TAPE OK, 09/08/17) Physical Exam Vital Signs Date Time Temp Pulse Resp B/P (MAP) Pulse Ox O2 Delivery O2 Flow Rate FiO2 09/08/17 15:25 56 18 144/54 95 Room Air 09/08/17 13:57 52 16 159/59 95 Room Air 09/08/17 13:20 95 Room Air 09/08/17 12:48 Room Air 92 09/08/17 12:30 58 09/08/17 12:15 36.6 63 20 123/65 95 Room Air Physical Exam Constitutional: Vital signs reviewed. Eyes: Pupils are equal round reactive to light. Conjunctiva are noninjected. ENT: Pharynx is clear without erythema or exudate. Mucous membranes are moist. Neck supple without meningeal signs. Respiratory: Clear to auscultation bilaterally. Breath sounds are equal bilaterally. No wheezing. Cardiovascular: Regular rate and rhythm. No rubs or gallops. GI: Soft, nondistended and nontender. Bowel sounds are present. Musculoskeletal: Bilateral lower extremity edema with tenderness to both calves , no erythema. Integumentary: No cyanosis. Neurological: The patient is awake and alert. No focal deficits. Psychiatric: Normal affect. Medical Decision & Procedures ER Provider Diagnostic Interpretation: Radiology results as stated below per my review and the radiologist's interpretation: BILATERAL LOWER EXTREMITY VENOUS DOPPLER HISTORY: Acute bilateral lower extremity pain and swelling eval for dvt COMPARISON STUDY: Left lower extremity duplex venous Doppler study 08/16/2017. FINDINGS: There is normal compressibility, flow, and augmentation within the bilateral lower extremity deep venous systems. Limited study secondary to patient body habitus. IMPRESSION: No sonographic evidence of deep venous thrombosis within the right or left lower extremity. Electronically signed by: Noel Pyle M.D. 09/08/2017 2:16 PM CHEST 2 VIEWS ROUTINE HISTORY: Short of breath. Assess for pneumonia. COMPARISON: Chest 09/05/2016. FINDINGS: No focal lung consolidations to suggest pneumonia. No evidence for pulmonary edema. The heart remains top normal in size. No pleural effusions. No pneumothorax. Prior cholecystectomy. Small linear density within the left midlung zone favors scarring or atelectasis. IMPRESSION: No acute process. Electronically signed by: Mihir Mcneill M.D. 09/08/2017 1:47 PM Laboratory Results 09/08/17 13:15 Red Blood Count 4.15, Mean Corpuscular Volume 89.4, Mean Corpuscular Hemoglobin 30.1, Mean Corpuscular Hemoglobin Concent 33.7, Mean Platelet Volume 9.8, Neutrophils (%) (Auto) 65.9, Lymphocytes (%) (Auto) 23.2, Monocytes (%) (Auto) 8.0, Eosinophils (%) (Auto) 2.1, Basophils (%) (Auto) 0.6, Neutrophils # (Auto) 4.18, Lymphocytes # (Auto) 1.47, Monocytes # (Auto) 0.51, Eosinophils # (Auto) 0.13, Basophils # (Auto) 0.04 09/08/17 13:15 Test 09/08/17 13:15 09/08/17 13:26 09/08/17 15:43 White Blood Count 6.34 K/uL (4.8-10.8) Red Blood Count 4.15 M/uL (4.2-5.4) Hemoglobin 12.5 g/dL (12.0-16.0) Hematocrit 37.1 % (37-47) Mean Corpuscular Volume 89.4 fL (80-100) Mean Corpuscular Hemoglobin 30.1 pg (25-34) Mean Corpuscular Hemoglobin Concent 33.7 g/dl (32-36) Platelet Count 218 K/uL (130-400) Mean Platelet Volume 9.8 fL (7.4-10.4) Neutrophils (%) (Auto) 65.9 % Lymphocytes (%) (Auto) 23.2 % Monocytes (%) (Auto) 8.0 % Eosinophils (%) (Auto) 2.1 % Basophils (%) (Auto) 0.6 % Neutrophils # (Auto) 4.18 K/uL (1.4-6.5) Lymphocytes # (Auto) 1.47 K/uL (1.2-3.4) Monocytes # (Auto) 0.51 K/uL (0.11-0.59) Eosinophils # (Auto) 0.13 K/uL (0-0.5) Basophils # (Auto) 0.04 K/uL (0-0.2) RDW Standard Deviation 43.9 fL (36.4-46.3) RDW Coefficient of Variation 13.5 % (11.5-14.5) Immature Granulocyte % (Auto) 0.2 % Immature Granulocyte # (Auto) 0.01 K/uL (0.00-0.02) Prothrombin Time 10.1 SECONDS (9.0-12.0) Prothromb Time International Ratio 1.0 (0.9-1.1) Activated Partial Thromboplast Time 25.2 SECONDS (21.0-31.0) Partial Thromboplastin Ratio 1.0 Anion Gap 5.0 mmol/L (3-11) Est Creatinine Clear Calc Drug Dose 61.8 ml/min Estimated GFR () 84.7 Estimated GFR (Non- 73.1 BUN/Creatinine Ratio 15.0 (10-20) Calcium Level 9.3 mg/dl (8.5-10.1) Pro-B-Type Natriuretic Peptide 335 pg/ml (0-900) Bedside Troponin I < 0.030 ng/ml (0-0.045) Laboratory results as reviewed by me. ECG Per My Interpretation Indication: SOB/dyspnea Rate (beats per minute): 54 Rhythm: sinus bradycardia Findings: 1st degree AV block, other (No ST elevation, no PVCs) Comparison ECG Date: 09/05/2016 Change: no significant change ED Course 1314: The patient was evaluated in room B8. A complete history and physical exam was performed. 1427: I reevaluated and updated the patient. We discussed her test results. She showed no change in her symptoms. 1448: I spoke with Dr. Gómez of the [facility] [place] [place] [facility]. We discussed the patient and her results. The patient will be further evaluated by Dr. Gómez for further treatment and care. Medical Decision This is a 72-year-old female presents with dyspnea on exertion, chest pain and leg pain. Differential diagnosis includes unstable angina, AR, DVT, anemia, pneumonia. I did perform a limited focused review of portions of the patient's old chart on the electronic medical record. The patient has seen on August 18, 2017, by pain management for a follow up for a sacroiliac joint injection performed on July 21, 2017. She was seen in the emergency department on August 16 for left calf pain and swelling. She had a DVT study done at that time which came back negative. I did evaluate the patient as noted above. IV access was established. The patient was placed on a continuous engine monitor. I did order and personally review the patient's 12-lead EKG and chest x-ray as described above. Her EKG demonstrates an old first-degree AV block. Chest x-ray is unremarkable. I did order and review the patient's blood work as noted in the electronic medical record. Troponin is negative. I did order Doppler ultrasound of lower extremities. I did review the images myself as well as the radiology report as described above. There is no evidence of DVT. I did resist the patient. I did recommend hospitalization for repeat cardiac enzymes and further evaluation. I did discuss case with the hospitalist and manager rn case. Blood Pressure Screening Patient's blood pressure: Elevated blood pressure Elevated blood pressure will be monitored by hospitalist. Consults Time Called: 1445 Consulting Physician: Dr. Gómez - [facility], [facility] [place] [place] Returned Call: [address] Gómez. We discussed the patient and her results. The patient will be further evaluated by Dr. Gómez for further treatment and care. Impression Primary Impression: Dyspnea on exertion Additional Impression: Acute chest pain Scribe Attestation The scribe's documentation has been prepared under my direct and personally reviewed by me in its entirety. I confirm that the note above accurately reflects all work, treatment, procedures, and medical decision making performed by me. Departure Information Dispostion Being Evaluated By Hospitalist Meena Mckeon M.D. (PCP) Patient Instructions My [facility] Problem Qualifiers
[2017-09-08 19:22] VITALS: BP 147/73; PULSE 54; TEMP 36.4; O2SAT 93; Ht 142.2 cm; Wt 97.4 kg
[2017-09-08 19:30] LABS: INFLUENZA A PCR Neg for Influ A (NEG); INFLUENZA B PCR Neg for Influ B (NEG)
[2017-09-08 19:55] VITALS: BP 172/78; PULSE 54; TEMP 36.5; O2SAT 94
[2017-09-08 20:00] VITALS: O2SAT 93
[2017-09-08] MEDS: PANTOprazole SOD 40 MG TAB PO SCH (20:56)
[2017-09-08] MEDS: CEROVITE ADV FORMULA TAB PO SCH (20:57)
[2017-09-08 21:00] VITALS: BP 161/79; PULSE 55; O2SAT 93
[2017-09-08] MEDS ORDERED: CHOLECALCIFEROL 1000 INTER.UNIT TAB PO SCH (21:00)
[2017-09-08] MEDS ORDERED: QUETIAPINE FUMARATE 25 MG TAB PO SCH (21:00)
[2017-09-08 23:01] VITALS: BP 159/78; PULSE 56; TEMP 36.6; O2SAT 94
[2017-09-09 03:54] LABS: CHOLESTEROL 201 mg/dl (0-200); LDL CHOLESTEROL CALCULATED 123 mg/dl
[2017-09-09 03:58] VITALS: BP 139/74; PULSE 54; TEMP 36.6; O2SAT 95
[2017-09-09 07:51] VITALS: BP 153/84; PULSE 63; TEMP 36.6; O2SAT 95
[2017-09-09] MEDS: CEROVITE ADV FORMULA TAB PO SCH (08:32)
[2017-09-09] MEDS: PANTOprazole SOD 40 MG TAB PO SCH (08:33)
[2017-09-09] MEDS ORDERED: BuPROPion SR 150 MG TABCR PO SCH (09:00)
[2017-09-09] MEDS ORDERED: MONTELUKAST SOD 10 MG TAB PO SCH (09:00)
[2017-09-09] MEDS ORDERED: MULTIVITAMIN TAB PO SCH (09:00)
[2017-09-09] MEDS ORDERED: MAGNESIUM OXIDE 400 MG TAB PO SCH (09:00)
[2017-09-09] MEDS ORDERED: ISOSORBIDE MONONITRATE 60 MG TABCR PO SCH (09:00)
[2017-09-09] MEDS ORDERED: LORATADINE 10 MG TAB PO SCH (09:00)
[2017-09-09] MEDS ORDERED: TRIAMTERENE/HCTZ 37.5/25MG TAB PO SCH (09:00)
[2017-09-09] MEDS ORDERED: ASPIRIN 81 MG ECTAB PO SCH (09:00)
[2017-09-09] MEDS ORDERED: OPTIRAY 320 IV PRN (11:00)
[2017-09-09 11:43] VITALS: BP 156/81; PULSE 55; TEMP 36.8; O2SAT 98
--- NOTE | 2017-09-09 11:51 | DIAGNOSTIC IMAGING REPORT ---
CT ANGIOGRAM OF THE CHEST CLINICAL HISTORY: Dyspnea. COMPARISON STUDY: Chest CT scans dated 01/03/2017 and 07/07/2015 TECHNIQUE: Following the IV administration of 87 cc of Optiray 320, CT angiogram of the chest was performed from the upper abdomen to the thoracic inlet utilizing the pulmonary embolus protocol. Images are reviewed in the axial, sagittal, and coronal planes. 3-D MIPS images are created and assessed. IV contrast was administered without complication. A dose lowering technique was utilized adhering to the principles of ALARA. CT DOSE: 391.60 mGy.cm FINDINGS: Thyroid: Imaged portions of the thyroid gland are normal in size and attenuation. Thoracic aorta: There is mild atherosclerotic calcification of the thoracic aorta, which is normal in caliber and demonstrates standard 3-vessel arch anatomy. No dissection is seen. Pulmonary vasculature: The pulmonary trunk is normal in caliber. There are no filling defects identified in main, lobar, or segmental pulmonary branches to suggest pulmonary embolus. Heart: The heart is top normal in size and without pericardial effusion. Lungs and pleural spaces: Evaluation of the lung parenchyma is degraded by motion artifact. No airspace consolidation or pleural effusion is identified. There are foci of bibasilar scarring/atelectasis. The trachea and central airways are clear. Mediastinum: There is no mediastinal lymphadenopathy. Yessi: Clear. Axillae: There is no axillary lymphadenopathy. Upper abdomen: Partially visualized upper abdominal viscera is within normal limits. Skeletal structures: The skeletal structures are osteopenic. Degenerative change is noted throughout the thoracic spine. No lytic or blastic bony lesions are seen. Soft tissues: The right breast is surgically absent. A right breast implant is in place. IMPRESSION: 1. There is no evidence of pulmonary embolus in the main, lobar, or segmental pulmonary arteries. 2. There is no airspace consolidation or pleural effusion. 3. Additional findings as above. Electronically signed by: John Spear M.D. 09/09/2017 11:49 AM Dictated Date/Time: 09/09/2017 11:44 AM
--- NOTE | 2017-09-09 14:29 | Discharge Instructions ---
Discharge Instructions Date of Service September 09, 2017. Admission Reason for Admission: Shortness of breath Discharge Discharge Diagnosis / Problem: Shortness of breath Discharge Goals Goal(s): Decrease discomfort, Improve function Activity Recommendations Activity Limitations: resume your previous activity . Instructions / Follow-Up Instructions / Follow-Up Medications: no changes Shortness of breath unclear etiology, may have been a viral illness like you suspected and then more perceived shortness of breath, possible anxiety no pneumonia, no heart failure, no pulmonary embolism no wheezing to suggest asthma FOLLOW UP - recommend follow up only if shortness of breath does not resolve in a few days Current Hospital Diet Patient's current hospital diet: AHA Diet (Heart Healthy) Discharge Diet Recommended Diet: AHA Diet (Heart Healthy) Pending Studies Studies pending at discharge: no Laboratory Results Lipid Panel Test 09/09/17 03:26 Range/Units Triglycerides Level 105 0-150 mg/dl Cholesterol Level 201 H 0-200 mg/dl HDL Cholesterol 57 mg/dl Cholesterol/HDL Ratio 3.5 LDL Cholesterol, Calculated 123 mg/dl Medical Emergencies . Who to Call and When: Medical Emergencies: If at any time you feel your situation is an emergency, please call 911 immediately. . Non-Emergent Contact Non-Emergency issues call your: Primary Care Provider Call Non-Emergent contact if: you have any medication questions if shortness of breath persists past a few days . . "Provider Documentation" section prepared by Antonio An. . [place] Drug Monitoring Program Search Results: no issues identified
[2017-09-09 14:30] VITALS: BP 156/81; PULSE 55; TEMP 36.8; O2SAT 98
--- NOTE | 2017-09-09 15:11 | Discharge Summary ---
Discharge Summary Date of Service September 09, 2017. Discharge Summary Admission Date: September 08, 2017 at 15:47 Discharge Date: September 09, 2017 Discharge Disposition: Home Principal Diagnosis: Dyspnea Problems/Secondary Diagnoses: h/o Asthma h/o anxiety Morbid obesity h/o Prinzmetal's angina Immunizations: Have You Had Influenza Vaccine: Yes History of Tetanus Vaccine?: Yes History of Pneumococcal: No History of Hepatitis B Vaccine: Yes Procedures: none Consultations: none Medication Reconciliation Continued Medications: Aspirin (Aspirin Ec) 81 Mg Tab 81 MG PO DAILY Bupropion (Wellbutrin Sr) 150 Mg Ertab 150 MG PO QAM, TAB Cholecalciferol (Vitamin D 1000 Unit) 1,000 Unit Cap 1000 INTER.UNIT PO HS, CAP Docusate Sodium (Colace) 100 Mg Cap 1 CAP PO BID PRN for Constipation for 30 Days, #60 CAP Ipratropium Labelle (Atrovent Hfa) 200 Puffs/3400 Mcg Aers 2 PUFFS INH QID PRN for SOB/Wheezing, #12.9 GM 3 Refills Isosorbide Mononitrate Ext Rel (Imdur Ext Rel) 60 Mg Ertab 60 MG PO QAM, TAB Loratadine (Claritin) 10 Mg Tab 10 MG PO DAILY, TAB Magnesium Oxide (Mag-Ox) 400 Mg Tab 400 MG PO QAM, TAB Montelukast Sodium (Singulair) 10 Mg Tab 1 TAB PO DAILY for 90 Days, #90 TAB 1 Refill Multiple Minerals W/ Vitamins (Citracal Plus) 1 Tab Tab 1 TAB PO BID Multivitamin (Multivitamin) Tab 1 TAB PO QAM, 0 Refills Nitroglycerin (Nitrostat) 0.4 Mg Tab 0.4 MG UT UD PRN for Chest Pain, BTL Omeprazole (Prilosec) 40 Mg Cap 40 MG PO BID, CAP Quetiapine Fumarate (Seroquel) 25 Mg Tab 25 MG PO HS, TAB Triamterene/Hctz (Triamterene/Hctz 37.5-25MG) 1 Tab Tab 0.5 TAB PO QAM, TAB Verapamil (Verelan Pm) 300 Mg Ercap 300 MG PO HS, CAP Vortioxetine HBr (Trintellix) 20 Mg Tab 20 MG PO HS [Brio] () 1 PUFF INH QAM Discharge Exam patient feeling better this afternoon, titrated off of oxygen, no dyspnea. took a long walk in the hallway, minimal dyspnea, had no desaturations, 94% on room air discussed that there was no clear cause for dyspnea, no pneumonia, no PE, no heart failure, no asthma discussed that possibly she had viral illness with muscle aches and dyspnea, but would have expected a fever and cough Review of Systems: Constitutional: No fever, No chills, No sweats, No weight loss, No weakness , No fatigue, No problem reported Eyes: No worsening of vision, No eye pain, No redness, No discharge, No diplopia, No problem reported ENT: No hearing loss, No unusual epistaxis, No nasal symptoms, No sore throat, No tinnitus, No dental problems, No trouble swallowing, No problem reported Respiratory: + dyspnea on exertion (minimal, much improved), No cough, No sputum, No wheezing, No shortness of breath, No dyspnea at rest, No hemoptysis, No problem reported Cardiovascular: No chest pain, No orthopnea, No PND, No edema, No claudication, No palpitations, No problem reported Abdomen: No pain, No nausea, No vomiting, No diarrhea, No constipation, No GI bleeding, No problem reported Musculoskeletal: No joint pain, No muscle pain, No swelling, No calf pain, No problem reported Genitourinary - Female: No dysuria, No urinary frequency, No urinary urgency , No urinary incontinence, No urinary retention, No hematuria Neurologic: No memory loss, No paralysis, No weakness, No numbness/tingling , No vertigo, No balance problems, No problem reported Psychiatric: No depression symptoms, No anhedonism, No anxiety, No insomnia , No substance abuse, No problem reported Endocrine: No fatigue, No excessive thirst, No excessive urination, No problem reported Hematologic / Lymphatic: No abnormal bleeding/bruising, No clotting problems , No swollen lymph nodes, No night sweats, No problem reported Integumentary: No rash, No itch, No new/changing skin lesions, No color change, No bleeding, No problem reported Physical Exam: General Appearance: no apparent distress, + obese Eyes: normal inspection, EOMI, sclerae normal ENT: normal ENT inspection, hearing grossly normal, pharynx normal Neck: supple, no adenopathy, no JVD, trachea midline Respiratory/Chest: chest non-tender, lungs clear, normal breath sounds, no respiratory distress, no accessory muscle use Cardiovascular: regular rate, rhythm, no edema, no gallop, no JVD, no murmur , normal peripheral pulses Abdomen / GI: normal bowel sounds, non tender, soft, no organomegaly Extremities: normal inspection, no calf tenderness, normal capillary refill , no pedal edema, normal range of motion, pelvis stable Neurologic/Psychiatric: global program manager II-XII nml as tested, no motor/sensory deficits , alert, normal mood/affect, normal reflexes, oriented x 3 Skin: normal color, warm/dry, no rash Lymphatic: no adenopathy Hospital Course 72 y/o F who was admitted on 09/08 for dyspnea - Dyspnea: no clear etiology, improved today no evidence of heart failure, no PE on CT chest, no pneumonia on imaging ruled out for ACS, troponin negative x 3 no hypoxia, 95% on room air 94% with ambulation could have been a viral illness that started a week ago, slowly resolving no asthma attack, lungs clear, no wheezing, no distress HTN: stable, continue home meds Asthma: stable, continue home meds Depression: stable, continue home meds GERD: stable, continue home meds Aortic sclerosis/CAD: continue aspirin h/o cath x2, no stents Other: Full code AHA diet SCDs for DVT proph d/c to home Total Time Spent: Greater than 30 minutes This includes examination of the patient, discharge planning, medication reconciliation, and communication with other providers. Discharge Instructions Please refer to the electronic Patient Visit Report (Discharge Instructions) for additional information. Follow-Up PCP as needed is dyspnea does not improve in next week Additional Copies To Meena Oleary M.D.
--- NOTE | 2017-09-09 20:30 | ECHOCARDIOGRAM REPORT ---
*NOTICE TO RECEIVING REPUBLICAN AGENCY This information is strictly Confidential and protected under [place] law. [place] law prohibits you from making any further disclosure of this information unless further disclosure is expressly permitted by the written consent of the person to whom it pertains or is authorized by law. A general authorization for the release of medical or other information is not sufficient for this purpose. Hospital accepts no responsibility if the information is made available to any other person, INCLUDING THE PATIENT. Interpretation Summary * Name: MAC SIDDIQUI Study Date: 09/09/2017 08:51 AM BP: 153/84 mmHg * Patient Location: [facility]\S\N275\S\2 HR: 65 * : 1945 (M/d/yyyy) Gender: Female Height: 56 in * Age: 72 yrs Ethnicity: CA Weight: 218 lb * Ordering Physician: Lisa Gómez * Referring Physician: Self, Referred * Performed By: Marisa Townsend, [facility] * * Reason For Study: SOB * BSA: 1.8 m2 * -- Conclusions -- * 1. Normal left ventricular size and systolic function. EF 60-65%. No regional wall motion abnormalities. Mild concentric left ventricular hypertrophy. * 2. There is mild mitral regurgitation. * 3. Normal estimated right ventricular systolic pressure; 32mmHg. Procedure Details * A complete two-dimensional transthoracic echocardiogram was performed (2D, M-mode, Doppler and color flow Doppler). Left Ventricle * Normal left ventricular size and systolic function. EF 60-65%. No regional wall motion abnormalities. Mild concentric left ventricular hypertrophy. Right Ventricle * The right ventricle is normal in size and function. * The right ventricular systolic function is normal as assessed by tricuspid annular plane systolic excursion (TAPSE) (normal >1.5 cm). Atria * The left atrial size is normal. * Right atrial size is normal. * There is no evidence of atrial septal defect, but resolution does not allow assessment for a patent foramen ovale. Mitral Valve * There is mild mitral annular calcification. * There is no mitral valve stenosis. * There is mild mitral regurgitation. Tricuspid Valve * The tricuspid valve is not well visualized, but is grossly normal. * There is no tricuspid stenosis. * There is mild tricuspid regurgitation. Aortic Valve * The aortic valve is trileaflet. * No hemodynamically significant valvular aortic stenosis. * No aortic regurgitation is present. Pulmonic Valve * The pulmonary valve is inadequately visualized, but the Doppler data is adequate for interpretation. * There is no pulmonic valvular stenosis. * Trace pulmonic valvular regurgitation. Great Vessels * The aortic root is normal size. * Normal pulmonary venous flow pattern. Pericardium/Pleural * There is no pericardial effusion. Great Vessels * Normal inferior vena cava size and collapsability with sniff indicates a normal right atrial pressure of 3 mmHg Left Ventricular Diastolic Function * Diastolic dysfunction, Grade II (pseudonormalization pattern). MMode 2D Measurements and Calculations IVSd 1.2 cm IVSs 1.5 cm LVIDd 4.2 cm LVIDs 2.8 cm LVPWd 1.2 cm LVPWs 1.6 cm IVS/LVPW 1.0 FS 32.7 % EDV(Teich) 76.9 ml ESV(Teich) 29.5 ml EF(Teich) 61.6 % EDV(cubed) 72.1 ml ESV(cubed) 21.9 ml EF(cubed) 69.5 % % IVS thick 17.8 % % LVPW thick 34.4 % LV mass(C)d 180.3 grams LV mass(C)dI 97.9 grams/m\S\2 LV mass(C)s 151.4 grams LV mass(C)sI 82.2 grams/m\S\2 SV(Teich) 47.3 ml SI(Teich) 25.7 ml/m\S\2 SV(cubed) 50.1 ml SI(cubed) 27.2 ml/m\S\2 Ao root diam 3.0 cm Ao root area 6.9 cm\S\2 LA dimension 3.7 cm LA/Ao 1.3 LVOT diam 1.9 cm LVOT area 2.7 cm\S\2 LVAd ap2 31.5 cm\S\2 LVLd ap2 7.7 cm EDV(MOD-sp2) 106.7 ml EDV(sp2-el) 109.6 ml LVAs ap2 15.8 cm\S\2 LVLs ap2 6.0 cm ESV(MOD-sp2) 34.5 ml ESV(sp2-el) 35.4 ml EF(MOD-sp2) 67.6 % EF(sp2-el) 67.7 % SV(MOD-sp2) 72.2 ml SI(MOD-sp2) 39.2 ml/m\S\2 SV(sp2-el) 74.2 ml SI(sp2-el) 40.3 ml/m\S\2 Doppler Measurements and Calculations MV E max jose 136.4 cm/sec MV A max jose 114.9 cm/sec MV E/A 1.2 MV P1/2t max jose 147.1 cm/sec MV P1/2t 68.4 msec MVA(P1/2t) 3.2 cm\S\2 MV dec slope 630.4 cm/sec\S\2 MV dec time 0.19 sec Ao V2 max 166.9 cm/sec Ao max PG 11.1 mmHg Ao max PG (full) 5.9 mmHg ZEKE(V,A) 1.8 cm\S\2 ZEKE(V,D) 1.8 cm\S\2 LV V1 max PG 5.2 mmHg LV V1 max 114.2 cm/sec PA V2 max 113.0 cm/sec PA max PG 5.1 mmHg TR max jose 267.5 cm/sec RVSP(TR) 31.7 mmHg RAP systole 3.0 mmHg
== END 2017-09-09 15:40 | disposition home or self-care (01) ==
LOC: C.EDB 11:55 → C.MED 15:47 → ENRESERV 16:02
PROVIDERS: ADMIT Family Medicine; ATTEND Internal Medicine
DX: R06.00 Dyspnea, unspecified (principal); R07.9 Chest pain, unspecified; I10 Essential (primary) hypertension; J45.909 Unspecified asthma, uncomplicated; F32.9 Major depressive disorder, single episode, unspecified; K21.9 Gastro-esophageal reflux disease without esophagitis; I25.10 Atherosclerotic heart disease of native coronary artery without angina pectoris; E66.01 Morbid (severe) obesity due to excess calories; Z90.10 Acquired absence of unspecified breast and nipple; Z68.42 Body mass index [BMI] 45.0-49.9, adult; Z79.82 Long term (current) use of aspirin; Z87.891 Personal history of nicotine dependence; Z96.659 Presence of unspecified artificial knee joint; Z90.49 Acquired absence of other specified parts of digestive tract; Z88.5 Allergy status to narcotic agent

== ENCOUNTER → 2017-11-25 | Outpatient (CLI) | payer OTHER ==
[~2017-11-25] MED LIST changes: +ATV/1 PO; +AZEL0.055 OP; -BRIO INH; +BUPR-102 PO; +BUSP15TA70 PO; +DSY/150 PO; +FLUT1INH INH; -QUET1TAB30 PO
--- NOTE | 2017-11-25 16:17 | DIAGNOSTIC IMAGING REPORT ---
LUMBAR SPINE W/O CONTRAST CLINICAL HISTORY: 72 years-old Female with BACK PAIN. Chronic low back pain without reported trauma COMPARISON: CTA of the chest 09/09/2017 TECHNIQUE: Multiplanar, multi sequence MRI of the lumbar spine was performed without intravenous contrast. 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 No acute fracture or focal bone marrow edema. There is stepwise lateral listhesis about the upper and mid lumbar spine with 3 mm retrolisthesis L1 on L2, 2 mm retrolisthesis L2 on L3 and 3 mm retrolisthesis L3 on L4 with 5 mm anterolisthesis L5 on S1, likely degenerative in nature. 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 Signal within the imaged thoracic spinal cord appears normal. Conus medullaris terminates at L1. Cauda equina appear unremarkable. Study is mildly motion degraded. No aortic aneurysm or pathologically enlarged lymph nodes. There are a few subcentimeter T2 hyperintense lesions about the left kidney suggesting renal cysts. T12-L1: No central canal or neural foraminal stenosis. L1-L2: Moderate intervertebral disc space narrowing with spondylitic spurring and circumferential annular disc bulge. Moderate to severe facet arthrosis with ligamentum flavum thickening. Superimposed left paracentral disc protrusion is also noted. These findings cause mild to moderate central canal, and mild to moderate left lateral recess stenosis. Patency of the bilateral neuroforamina. L2-L3: Mild intervertebral disc space narrowing with spondylitic spurring and circumferential annular disc bulge. Severe facet arthrosis with ligamentum flavum thickening. AP dimension of the thecal sac measures 8 mm. There is resultant mild to moderate central canal and mild bilateral foraminal stenosis. L3-L4: Mild intervertebral disc space narrowing with spondylitic spurring, circumferential annular disc bulge, ligamentum flavum thickening with severe facet arthrosis. Trace left facet effusion. AP dimension of the thecal sac measures 8 mm. There is mild to moderate central canal with mild to moderate left and mild right foraminal narrowing. L4-L5: Severe intervertebral disc space narrowing with spondylitic spurring and circumferential annular disc bulge. Ligamentum flavum thickening with advanced facet arthrosis. AP dimension of the thecal sac measures 7 mm. There is moderate central canal and moderate bilateral foraminal stenosis. Mild soft tissue edema is noted about the left facet joint, images 10 and 11 of series 4. L5-S1: Mild intervertebral disc space narrowing with anterolisthesis as above. Small circumferential annular disc bulge with severe facet arthrosis and ligamentum flavum thickening. Findings cause mild central canal with moderate right and moderate to severe left foraminal stenosis. IMPRESSION: 1. No acute fracture or subluxation identified. 2. Multilevel discogenic degenerative changes with facet arthrosis and ligamentum flavum thickening resulting in multilevel foraminal and central canal stenosis as detailed above. 3. There is moderate central canal stenosis at L4-L5 with moderate bilateral foraminal narrowing. Mild soft tissue edema surrounding the left facet joint at this interspace is likely reactive. 4. Mild central canal with moderate right and moderate to severe left foraminal stenosis at L5-S1. The above report was generated using voice recognition software. It may contain grammatical, syntax or spelling errors. Electronically signed by: Noel Pyle M.D. 11/25/2017 4:15 PM Dictated Date/Time: 11/25/2017 4:04 PM
== END | disposition home or self-care (01) ==
LOC: C.MRIBC 15:24
PROVIDERS: ATTEND Physician Assistant Medical
DX: M54.16 Radiculopathy, lumbar region (principal)

== ENCOUNTER 2025-01-17 12:58 | Inpatient (IN) ==
[2025-01-17] MEDS: PLASMA-LYTE A 1,000 ML IV ONE ×2 (13:32→14:45)
--- NOTE | 2025-01-17 13:50 | XRay Report ---
XR chest 1V portable CLINICAL HISTORY: Sepsis COMPARISON STUDY: 05/11/2024 FINDINGS: Heart size and pulmonary vasculature are normal. No consolidation or pleural effusion. No p neumothorax. IMPRESSION: No acute findings. ACT 112: Negative or not required by law. Electronically signed by: David Reid M.D. 01/17/2025 1:49 PM
--- NOTE | 2025-01-17 14:01 | Emergency Department Note ---
Impression & Plan LUZ (acute kidney injury), Acute dehydration, Acute hypotension, Acute hyponatremia, Ambulatory dysfunction, Generalized weakness, Thrombocytosis ED Provider Note NAME: MAC SIDDIQUI AGE: 79 SEX: F : 1945 ARRIVES VIA: Walk-In INFORMANT: Patient ED PROVIDER(S): Shahid Whitfield DO CHIEF COMPLAINT: atrial fibrillation with RVR HPI: This is a 79-year-old female with the PMHx of spinal stenosis, CAD, Prizmental angina, valvular heart disease, peripheral artery disease, nocturnal hypoxemia and recent admission at [facility] for febrile illness with significant weakness and hypotension presenting to [facility] for further evaluation of significant weakness and ambulatory dysfunction. Patient is accompanied by her daughter who provide additional history. Patient daughter reports that she was recently admitted for 9 days at [facility] for a febrile illness associated with kidney dysfunction, electrolyte derangements, and hypotension. They were presumedly treating pneumonia. Patient's daughter reports that she was under the impression that the patient would benefit from rehabilitation services prior to direct discharge to home. The patient was discharged directly home and has struggled to perform ADLs as well as ambulate. They report that they followed up with the primary care physician today noting to have thrombocytosis and was told to come directly to the emergency department. The patient is reporting generalized fatigue and malaise. She states that her symptoms have failed to improve. She states that she still feels like she has pneumonia. She does report minimal shortness of breath as well as a cough that is nonproductive. Patient states that she can only ambulate to the bathroom. Her daughter and family members are assisting with meals and care. They deny fever or chills. Denies chest pain or palpitations. They deny abdominal pain, nausea and vomiting. No urinary complaints. No recent changes in bowel movements. Patient denies recent changes in medications or OTC supplements. Patient offers no other complaints, today. ADDITIONAL HISTORY OBTAINED: Per HPI Chronic Medical/Social Conditions Affecting Care: Per HPI PAST MEDICAL HISTORY: See Below PAST SURGICAL HISTORY: See Below FAMILY HISTORY: See Below SOCIAL HISTORY: See Below HOME MEDICATIONS: See Below ALLERGIES: See Below VITALS: See Below PHYSICAL EXAMINATION: GENERAL: Sitting up in bed, alert, ill appearing, well nourished, no distress, non-toxic EYE EXAM: normal conjunctiva. PERRL and EOM's grossly intact. OROPHARYNX: no exudate, no erythema, lips, buccal mucosa, and tongue normal and mucous membranes are moist NECK: supple, no nuchal rigidity, no adenopathy, non-tender LUNGS: Rhonchi present. Normal chest wall mechanics HEART: no murmurs, tachycardic rate, irregular rhythm ABDOMEN: abdomen soft, non-tender, no masses, no rebound or guarding. BACK: Back is symmetrical on inspection and there is no deformity, no midline tenderness, no CVA tenderness. SKIN: no rashes and no bruising. Patient is pale. UPPER EXTREMITIES: upper extremities are grossly normal. LOWER EXTREMITIES: No pitting edema. NEURO EXAM: Normal sensorium, GCS 15, normal speech, no gross weakness of arms, no gross weakness of legs. MEDICAL DECISION MAKING: Differential diagnoses includes but not limited to Dehydration, electrolyte derangements, failure to thrive, ambulatory dysfunction, pneumonia, viral URI, UTI, adrenal insufficiency In summary, this is a 79 year old female who presented with failure to thrive. Differential as above. Nursing notes and pertinent past medical records reviewed. Vital signs reviewed and the patient is hypotensive but otherwise afebrile and hemodynamically stable. History and presentation revealed Patient was recently admitted to [facility]. Patient's discharge summary is scanned into her chart. I reviewed documentation. Appears that the patient was admitted for hypotension along with a febrile illness of unknown etiology. It is suspected that she likely had pneumonia. Patient was noted to have multiple electrolyte derangements as well as an LUZ at that visit. Patient has not done well since her discharge. She has required significant assistance in ADLs. Having worsening weakness. Does have thrombocytosis. Patient has been hypotensive at home. Family is concerned that she was not ready to be discharged and likely needs rehabilitation services. Physical examination revealed generally ill-appearing female with no evidence of respiratory distress or peritonitis. She is warm and well-perfused. As a result of my initial evaluation, we will plan for sepsis workup given hypotension but the patient does not have a fever or clear source at this time. History is pertinent for recent admission for febrile illness. I do suspect that some of her hypotension could be related to volume status as she has not been eating or drinking significantly. Diagnostics interpreted by me include EKG and cardiac monitoring as listed below: -Cardiac Monitoring: An order was placed for continuous cardiac monitoring. The monitor shows a rate of 60-90s with regular rhythm. -ECG: EKG independently interpreted by me reveals sinus rhythm at 80 bpm. First-degree AV block noted. No significant ST segment changes to suggest STEMI. Patient completed laboratory studies and imaging. Results independently interpreted by me are no significant leukocytosis or elevated procalcitonin. Patient does not have significant anemia but there is thrombocytosis present. Unclear etiology but the patient is on low-dose aspirin therapy. Patient may need further workup as an outpatient regarding thrombocytosis. Coagulation studies are normal. Mild hyponatremia likely secondary to diet/hydration status as well as slight hyperglycemia raising concern for possible pseudohyponatremia. LUZ noted. Alkaline phosphatase is mildly elevated but otherwise LFTs are normal. Urinalysis shows no UTI. Given LUZ as well as hypotension, will evaluate further with renal ultrasound. Patient did have recent CT imaging at [facility] do not believe that CT imaging is necessary at this point. I do think the pain is patient would benefit from further investigation into her hypotension including evaluation for adrenal insufficiency. Patient was managed with crystalloid resuscitation and her blood pressure responded. CXR independently interpreted by me reveals no evidence of focal consolidation to suggest pna. No large pneumothorax or pleural effusion. Renal ultrasound independently interpreted by me is negative for hydronephrosis. Patient is still unsafe to return home given her issues with ambulatory status as well as performing ADLs. We are recommending admission for observation off of antibiotics. Patient will need further workup for abnormalities found today. Patient will need to continue IV fluid resuscitation as an inpatient. She will benefit from evaluations by care management as well as physical and Occupational Therapy. I do suspect the patient will likely benefit from rehabilitation stay. Ultimately, the decision was made to admit the patient for generalized weakness and fatigue in the setting of hypotension and an LUZ. It was recommended to admit this patient at 1521. I discussed the case with the hospitalist service via telephone/TigerText and they are agreeable to admit the patient to their services by Dr. Bennett at 1533. Based on the above, including the patient's age, coexisting illnesses, labs, imaging, and exam findings the decision to treat as an inpatient. I discussed the patient with the hospitalist team who recommended admission to their services. They received the medications, treatments, interventions indicated above and their condition improved. I discussed my findings with the patient and their family and they understand and agree with the treatment plan. All patient / family questions were answered to their satisfaction. Consults/Care Managements Discussions: Per MDM ER treatment provided: See above Procedures: None Critical Care: None The chart was completed utilizing [employer] Speech voice recognition software. Grammatical errors, random word insertions, pronoun errors, and incomplete sentences are an occasional consequence of this system due to software limitations, ambient noise, and hardware issues. Any formal questions or concerns about the content, text, or information contained within the body of this dictation should be directly addressed to the physician for clarification. Past Med/Surg History Problem List (Updated 01/17/25 @ 17:40 by Shahid Whitfield DO) Thrombocytosis (Acute) Generalized weakness (Acute) Ambulatory dysfunction (Acute) Acute hyponatremia (Acute) Acute hypotension (Acute) Acute dehydration (Acute) LUZ (acute kidney injury) (Acute) Nocturnal hypoxia Elevated plasma metanephrines Keratosis Carotid artery stenosis Aortic valve sclerosis Mitral regurgitation Hypertension CAD (coronary artery disease) Prinzmetal's angina (Acute) Paroxysmal supraventricular tachycardia (Acute) Recurrent falls Lumbar spinal stenosis (Chronic) Moderate at L4-5 Spinal stenosis (Acute) Tremor (Acute) Diffuse myofascial pain syndrome (Chronic) Osteoarthritis of right shoulder Allergic rhinitis (Acute) Morbid obesity (Acute) Medical History Osteoporosis Statin myopathy PFO (patent foramen ovale) Hyperlipidemia Generalized anxiety disorder GERD without esophagitis Breast cancer Depression Asthma Prediabetes Syncope Surgical History H/O carpal tunnel repair S/P colonoscopy 02/10/2020 repeat 5yrs H/O breast reconstruction (~2011) Delayed left breast reconstruction Dr. Lino 01/31/2012 with TE 10/09/12 left breast reduction for symmetry, implant exchange right breast [place] [address] High Profile implant Dr. Lino 01/27/13 revision left breast reduction, right breast mound 02/2016 revision right axillary breast- Dr. Munroe Right NAC tattoo, last touch up 05/21/2019 [place] History of mastectomy S/P appendectomy History of cardiac cath H/O laminectomy S/P knee replacement Family History Father Heart disease Cancer Hypertension FH: deafness or hearing loss Cardiac disorder Prostate cancer Myocardial infarction Sister Hyperlipidemia Breast cancer Arthritis Thyroid disorder Colon cancer Cancer Colorectal cancer Brother Methicillin resistant Staphylococcus aureus infection Unknown Arthritis Mother Heart disease Osteoporosis Arthritis Cardiac disorder Lung disease COPD Sister Breast cancer Aunt Ovarian cancer Social History Smoking Status: Former smoker Tobacco Type: Cigarettes Age Started Using Tobacco: 13; Age Quit Using Tobacco: 41; packs per day: 0.25; Second Hand Exposure: Yes (Both parents); Do You Dip or Chew Tobacco: No; Hx Alcohol Use: No Hx Substance Use: No Preferred Language: Tajik Communication Ability: Effective Visual Impairment: No Limitations Hearing Ability: Normal Manager Social Required: No Beliefs That Will Affect Care: None marital status: Current Living Situation: Alone current occupational status: employed 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 How many Children do You have: 2 Feels Safe at Home: Yes Childhood Exposure to Second-Hand Smoke: Yes (Both parents) Diet: regular Diet Comment: Regular diet caffeine: Yes (Diet Pepsi) during the past year weight has: remained stable Dental Care, Regularly: Yes Physical Activity Frequency: Does not Exercise Seatbelt Use: always Sunscreen Use: Yes Gender Identity: Female Assistive Devices: Glasses Allergies Allergies Allergy/AdvReac Type Severity Reaction Status Date / Time celecoxib Allergy Intermediate RASH,SWOLLEN Verified 01/14/25 10:24 FEET/HANDS albuterol AdvReac Intermediate CHEST PAIN Verified 01/14/25 10:24 oxycodone AdvReac Intermediate GI SYMPTOMS Verified 01/14/25 10:24 rosuvastatin AdvReac Intermediate MUSCLE Verified 01/14/25 10:24 PAIN/ABNORMAL LABS adhesive AdvReac Mild SOME TAPE Verified 01/14/25 10:24 BLISTERS-PAPER TAPE OK [id number] Reductase AdvReac Muscle Pain Verified 01/14/25 10:24 Inhibitor [Iodbhoo-Yut-Lrx Reductase Inhibitor] Home Meds Home Medications Medication Instructions Recorded Confirmed docusate sodium 100 mg capsule 100 mg PO BID PRN Constipation 03/30/19 01/17/25 (Colace) gabapentin 600 mg tablet 600 mg PO TID 04/14/20 01/17/25 lorazepam 1 mg tablet (Ativan) 1 mg PO BID anxiety 06/26/21 01/17/25 primidone 50 mg tablet 200 mg PO QPM 12/12/23 09/22/25 calcium 315 mg (as 1 tab PO DAILY 12/24/23 01/17/25 citrate)-vitamin D3 6.25 mcg (250 unit) tablet (Citracal + Vitamin D Maximum) gabapentin 100 mg tablet 100 mg PO HS 10/19/24 01/17/25 zoledronic acid 5 mg/100 mL in 0 ea IV YEARLY 11/11/24 01/17/25 mannitol 5 %-water intravenous piggybck (Reclast) oxycodone 5 mg tablet 5 mg PO Q6H PRN pain, severe 12/13/24 01/17/25 ondansetron HCl 4 mg tablet 4 mg PO Q6H 12/14/24 01/17/25 tizanidine 4 mg tablet 6 mg PO HS 12/14/24 01/17/25 ferrous fumarate 325 mg (106 mg 325 mg PO DAILY 01/12/25 01/17/25 iron) tablet bupropion HCl 200 mg tablet,12 hr 200 mg PO BID 01/17/25 01/17/25 sustained-release buspirone 15 mg tablet 15 mg PO HS 01/17/25 01/17/25 duloxetine 60 mg capsule,delayed 60 mg PO DAILY 01/17/25 01/17/25 release evolocumab 140 mg/mL subcutaneous 140 mg subcut Q14D 01/17/25 01/17/25 pen injector (Bob Sanchez) loratadine 10 mg tablet 10 mg PO DAILY 01/17/25 01/17/25 multivitamin 1 tab PO DAILY 01/17/25 01/17/25 primidone 50 mg tablet 50 mg PO DAILY 01/17/25 01/17/25 primidone 50 mg tablet 50 mg PO QAM 01/17/25 01/17/25 tizanidine 4 mg tablet 4 mg PO QAM 01/17/25 01/17/25 Previous Rx's Medication Instructions Recorded acetaminophen 500 mg tablet 1,000 mg (2 x 500 mg) PO Q6H PRN 11/29/18 (Tylenol Extra Strength) pain/fever #360 tabs cholecalciferol (vitamin D3) 25 1,000 units PO HS #90 caps 11/29/18 mcg (1,000 unit) capsule vortioxetine 20 mg tablet 20 mg PO HS #90 tabs 11/29/18 (Trintellix) ipratropium bromide 17 2 puff inhalation Q6H PRN 05/05/24 mcg/actuation HFA aerosol inhaler Shortness Of Breath Or Wheezing (Atrovent HFA) #12.9 grams triamterene 37.5 1 tab PO QAM #90 tabs 08/12/24 mg-hydrochlorothiazide 25 mg tablet fluticasone propionate 50 2 spray intranasal DAILY #16 grams 10/18/24 mcg/actuation nasal spray,suspension (Allergy Relief (fluticasone)) isosorbide mononitrate 60 mg 60 mg PO QAM #90 tabs 11/03/24 tablet,extended release 24 hr montelukast 10 mg tablet 10 mg PO HS #90 tabs 11/03/24 (Singulair) Breo Ellipta 200 mcg-25 mcg/dose 1 inh inhalation DAILY #60 ea 11/22/24 powder for inhalation (fluticasone furoate-vilanterol) magnesium oxide 400 mg PO QAM #90 caps 11/22/24 potassium chloride 20 mEq 20 meq PO DAILY #90 tabs 11/22/24 tablet,extended release losartan 100 mg tablet 100 mg PO DAILY #90 tabs 11/23/24 aspirin 81 mg tablet,delayed 81 mg PO QAM #90 tabs 12/13/24 release (Adult Aspirin Regimen) nitroglycerin 0.4 mg sublingual 0.4 mg sublingual Q5M PRN Chest 12/14/24 tablet (Nitrostat) Pain #20 tabs amlodipine 10 mg tablet 10 mg PO DAILY #90 tabs 01/11/25 hydralazine 25 mg tablet 25 mg PO QID #360 tabs 01/11/25 torsemide 20 mg tablet 20 mg PO DAILY #90 tabs 01/11/25 omeprazole 40 mg capsule,delayed 40 mg PO BID #180 caps 01/12/25 release Results & Data (ED) Vital Signs Vital Signs - 24 hr 01/17/25 13:03 01/17/25 13:24 01/17/25 13:28 Temperature 36.6 C Temperature Source Temporal Artery Scan Pulse Rate 97 H 79 Pulse Rate [Apical] Pulse Rhythm Respiratory Rate 20 20 Respiratory Effort / Characteristics Non-Labored Respiratory Depth Normal Blood Pressure 84/49 L 106/54 L Blood Pressure [Right Arm] Blood Pressure Mean 60 67 Blood Pressure Mean [Right Arm] Pulse Oximetry 95 95 Oxygen Delivery Method Room Air Room Air Sepsis Recent Fever Within 48 Hours No Sepsis New/Unexplained Change in Mental Status Yes Sepsis Action Taken by Nursing No Action Required 01/17/25 13:31 01/17/25 13:32 01/17/25 13:45 Temperature Temperature Source Pulse Rate 78 77 Pulse Rate [Apical] Pulse Rhythm Respiratory Rate 17 Respiratory Effort / Characteristics Respiratory Depth Blood Pressure 105/58 L 100/51 L Blood Pressure [Right Arm] Blood Pressure Mean 72 62 Blood Pressure Mean [Right Arm] Pulse Oximetry 91 Oxygen Delivery Method Sepsis Recent Fever Within 48 Hours Sepsis New/Unexplained Change in Mental Status Sepsis Action Taken by Nursing 01/17/25 14:00 01/17/25 14:06 01/17/25 14:30 Temperature Temperature Source Pulse Rate 69 77 Pulse Rate [Apical] Pulse Rhythm Respiratory Rate 15 19 Respiratory Effort / Characteristics Respiratory Depth Blood Pressure 109/57 L 121/69 Blood Pressure [Right Arm] Blood Pressure Mean 73 75 Blood Pressure Mean [Right Arm] Pulse Oximetry 97 96 Oxygen Delivery Method Sepsis Recent Fever Within 48 Hours Sepsis New/Unexplained Change in Mental Status Sepsis Action Taken by Nursing 01/17/25 14:30 01/17/25 15:32 01/17/25 16:02 Temperature Temperature Source Pulse Rate 84 Pulse Rate [Apical] 69 Pulse Rhythm Regular Respiratory Rate 20 20 Respiratory Effort / Characteristics Non-Labored Respiratory Depth Normal Blood Pressure 121/69 Blood Pressure [Right Arm] 127/62 Blood Pressure Mean 75 Blood Pressure Mean [Right Arm] 83 Pulse Oximetry 93 97 Oxygen Delivery Method Room Air Room Air Sepsis Recent Fever Within 48 Hours Sepsis New/Unexplained Change in Mental Status Sepsis Action Taken by Nursing 01/17/25 16:02 01/17/25 17:14 Temperature Temperature Source Pulse Rate Pulse Rate [Apical] 84 81 Pulse Rhythm Respiratory Rate 20 20 Respiratory Effort / Characteristics Non-Labored Non-Labored Respiratory Depth Normal Normal Blood Pressure Blood Pressure [Right Arm] 148/68 H 145/61 H Blood Pressure Mean Blood Pressure Mean [Right Arm] 94 89 Pulse Oximetry 94 94 Oxygen Delivery Method Room Air Room Air Sepsis Recent Fever Within 48 Hours Sepsis New/Unexplained Change in Mental Status Sepsis Action Taken by Nursing Laboratory Data 01/17/25 Unknown 01/17/25 Unknown Lab Results 01/17/25 01/17/25 01/17/25 Range/Units 14:30 15:05 Unknown WBC 9.23 (4.8-10.8) K/ul RBC 4.04 L (4.20-5.40) M/uL Hgb 12.0 (12.0-16.0) g/dl Hct 36.3 L (37.0-47.0) % MCV 89.9 (80.0-100.0) fL MCH 29.7 (25.0-34.0) pg MCHC 33.1 (32.0-36.0) g/dL RDW Std Deviation 42.9 (36.4-46.3) fL RDW Coeff of Shannon 13.0 (11.5-14.5) % Plt Count 798 H (130-400) K/uL MPV 10.0 (9.4-12.4) fL Immature Gran % (Auto) 0.8 % Neut % (Auto) 59.9 % Lymph % (Auto) 16.6 % [place] % (Auto) 12.4 % Eos % (Auto) 9.4 % Baso % (Auto) 0.9 % Neut # (Auto) 5.54 (1.40-6.50) K/uL Lymph # (Auto) 1.53 (1.20-3.40) K/uL [place] # (Auto) 1.14 H (0.11-0.59) K/uL Eos # (Auto) 0.87 H (0.00-0.50) K/uL Baso # (Auto) 0.08 (0.00-0.20) K/uL Immature Gran # (Auto) 0.07 (0.01-0.20) K/uL PT 10.8 (9.0-12.0) Seconds INR 1.0 (0.9-1.1) APTT 25 (21-31) Seconds PTT Ratio 0.9 Sodium 131 L (136-145) mmol/L Potassium 5.0 (3.5-5.1) mmol/L Chloride 95 L (98-107) mmol/L Carbon Dioxide 26 (21-32) mmol/L Anion Gap 10 (3-11) BUN 24 H (6-23) mg/dl Creatinine 1.44 H (0.6-1.2) mg/dl Est Cr Clr Drug Dosing 30.4 ml/min eGFR 37.23 BUN/Creatinine Ratio 16.7 (10-20) Glucose 127 H (70-99(Fasting)) mg/dl Lactate 1.9 (0.4-2.0) mmol/L Calcium 10.7 H (8.6-10.3) mg/dl Magnesium 1.9 (1.7-2.4) mg/dl Total Bilirubin 0.5 (0.2-1.0) mg/dl Direct Bilirubin 0.2 (0-0.2) mg/dl AST 29 (13-39) U/L ALT 20 (7-52) U/L Alkaline Phosphatase 210 H (34-104) U/L Troponin I High Sens 9.8 (0-14) pg/ml Total Protein 8.6 H (6.0-8.3) gm/dl Albumin 4.1 (3.4-5.0) gm/dl Procalcitonin 0.34 (0-0.5) ng/ml Urine Color Yellow Urine Appearance Clear (Clear) Urine pH 7.0 (4.5-7.5) Ur Specific [place] 1.007 (1.000-1.030) Urine Protein Negative (Negative) Urine Glucose (UA) Negative (Negative) Urine Ketones Negative (Negative) Urine Blood Negative (Negative) Urine Nitrite Negative (Negative) Urine Bilirubin Negative (Negative) Urine Urobilinogen Negative (Negative) Ur Leukocyte Esterase Negative (Negative) Urine Comment Administered Medications Discontinued Medications Parenteral Electrolytes (Plasma-Lyte A Ph 7.4) 1,000 mls @ 999 mls/hr IV .Q1H1M ONE Stop: 01/17/25 14:25 Last Infusion: 01/17/25 14:45 Dose: Infused Documented By: armando Admin: 01/17/25 13:32 Dose: 999 mls/hr Documented By: armando Parenteral Electrolytes (Plasma-Lyte A Ph 7.4) 1,000 mls @ 999 mls/hr IV .Q1H1M ONE Stop: 01/17/25 15:33 Last Infusion: 01/17/25 15:50 Dose: Infused Documented By: Admin: 01/17/25 14:45 Dose: 999 mls/hr Documented By: armando Imaging Data Radiologist's Impression: Chest X-Ray 01/17/25 13:25 XR chest 1V portable CLINICAL HISTORY: Sepsis COMPARISON STUDY: 05/11/2024 FINDINGS: Heart size and pulmonary vasculature are normal. No consolidation or pleural effusion. No pneumothorax. IMPRESSION: No acute findings. ACT 112: Negative or not required by law. Electronically signed by: David Reid M.D. 01/17/2025 1:49 PM Renal Ultrasound 01/17/25 14:33 Clinical history: Acute renal injury Technique: Renal sonography was performed Findings: The kidneys are of normal size and echogenicity. The right kidney measures 11.3 cm in length and the left kidney measures 11 cm in length. There is no hydronephrosis or visualized hydroureter. No definite renal calculus or mass is seen. There is a 1.7 cm left renal cyst Impression: Left renal cyst Electronically signed by Crow Dial 01-17-2025 5:08 PM Discharge Plan Visit Data Chief Complaint: Referred by Doctor Stated Complaint: SENT BY PCP, [facility] ED Provider: Shahid Whitfield Discharge Problem: LUZ (acute kidney injury), Acute dehydration, Acute hypotension, Acute hyponatremia, Ambulatory dysfunction, Generalized weakness, Thrombocytosis Patient Disposition: Admitted As Inpatient Condition: Serious Forms Stand Alone Forms: [facility] Prescriptions Prescriptions: No Action lorazepam [Ativan] 1 mg tablet 1 mg PO BID Atrovent HFA 17 mcg/actuation HFA aerosol inhaler 2 puff INH Q6H PRN (Reason: Shortness Of Breath Or Wheezing) Qty: 12.9 0RF triamterene-hydrochlorothiazid 37.5-25 mg tablet 1 tab PO QAM Qty: 90 3RF fluticasone propionate [Allergy Relief (fluticasone)] 50 mcg/actuation spray,suspension 2 spray intranasal DAILY Qty: 16 0RF Patient Comments: Unable to verify OTC meds at this date/time. 01/17/25 Rx Instructions: administer into each nostril isosorbide mononitrate 60 mg tablet extended release 24 hr 60 mg PO QAM Qty: 90 3RF montelukast [Singulair] 10 mg tablet 10 mg PO HS Qty: 90 3RF potassium chloride 20 mEq tablet extended release 20 meq PO DAILY Qty: 90 3RF magnesium oxide 400 mg magnesium capsule 400 mg PO QAM Qty: 90 3RF Patient Comments: Unable to verify OTC meds at this date/time. 01/17/25 Breo Ellipta 200-25 mcg/dose blister with device 1 inh INH DAILY Qty: 60 2RF losartan 100 mg tablet 100 mg PO DAILY Qty: 90 3RF amlodipine 10 mg tablet 10 mg PO DAILY Qty: 90 3RF hydralazine 25 mg tablet 25 mg PO QID Qty: 360 3RF Rx Instructions: Take 1 Tablet by mouth in the morning and 1 Tablet at noon and 1 Tablet in the evening and 1 Tablet before bedtime. torsemide 20 mg tablet 20 mg PO DAILY Qty: 90 3RF omeprazole 40 mg capsule,delayed release(DR/EC) 40 mg PO BID Qty: 180 3RF acetaminophen [Tylenol Extra Strength] 500 mg tablet 1,000 mg PO Q6H PRN (Reason: pain/fever) Qty: 360 3RF Patient Comments: Unable to verify OTC meds at this date/time. 01/17/25 cholecalciferol (vitamin D3) 1,000 unit capsule 1,000 units PO HS Qty: 90 3RF Patient Comments: Unable to verify OTC meds at this date/time. 01/17/25 Trintellix 20 mg tablet 20 mg PO HS Qty: 90 3RF primidone 50 mg tablet 200 mg PO QPM Rx Instructions: 50 mg orally take 1 tablet in the AM, 1 tablet in the afternoon and 4 tablets in the evening; gabapentin 100 mg tablet 100 mg PO HS calcium citrate-vitamin D3 [Citracal + D Maximum] 315 mg-6.25 mcg (250 unit) tablet 1 tab PO DAILY Patient Comments: Unable to verify OTC meds at this date/time. 01/17/25 docusate sodium [Colace] 100 mg capsule 100 mg PO BID PRN (Reason: Constipation) Patient Comments: Unable to verify OTC meds at this date/time. 01/17/25 gabapentin 600 mg tablet 600 mg PO TID zoledronic [id number] [Reclast] 5 mg/100 mL piggyback 0 ea IV YEARLY Patient Comments: Unable to verify w/ pt at this date/time. 01/17/25 ondansetron HCl 4 mg tablet 4 mg PO Q6H tizanidine 4 mg tablet 6 mg PO HS nitroglycerin [Nitrostat] 0.4 mg tablet, sublingual 0.4 mg SL Q5M PRN (Reason: Chest Pain) Qty: 20 3RF oxycodone 5 mg tablet 5 mg PO Q6H PRN (Reason: pain, severe) Patient Comments: Confirmed w/ patient and on [facility] dc summary 12/13/24 aspirin [Adult Aspirin Regimen] 81 mg tablet,delayed release (DR/EC) 81 mg PO QAM Qty: 90 3RF Patient Comments: Unable to verify OTC meds at this date/time. 01/17/25 ferrous fumarate 325 mg (106 mg iron) tablet 325 mg PO DAILY Patient Comments: Unable to verify OTC meds at this date/time. 01/17/25 multivitamin Tablet 1 tab PO DAILY Patient Comments: Unable to verify OTC meds at this date/time. 01/17/25 primidone 50 mg tablet 50 mg PO QAM Rx Instructions: TAKE 1 TABLET IN THE MORNING, 1 AT NOON, AND 4 AT BEDTIME primidone 50 mg tablet 50 mg PO DAILY Rx Instructions: TAKE 1 TABLET IN THE MORNING, 1 AT NOON, AND 4 AT BEDTIME tizanidine 4 mg tablet 4 mg PO QAM buspirone 15 mg tablet 15 mg PO HS bupropion HCl 200 mg tablet sustained-release 12 hr 200 mg PO BID duloxetine 60 mg capsule,delayed release(DR/EC) 60 mg PO DAILY loratadine 10 mg Tablet 10 mg PO DAILY Patient Comments: Unable to verify OTC meds at this date/time. 01/17/25 Repatha SureClick 140 mg/mL pen injector 140 mg subcut Q14D Referrals Referrals: Betsy Narvaez DO [Primary Care Provider] -
[2025-01-17 14:14] LABS: Hematocrit (blood only) 36.3 % (37.0-47.0); Hemoglobin 12.0 g/dl (12.0-16.0); Immature Granulocytes # (auto) 0.07 K/uL (0.01-0.20); Immature Granulocytes % (auto) 0.8 %; Mean Corpuscular Hemoglobin 29.7 pg (25.0-34.0); Mean Corpuscular Volume 89.9 fL (80.0-100.0); Platelet Count 798 K/uL (130-400); RDW Standard Deviation 42.9 fL (36.4-46.3); Red Blood Count 4.04 M/uL (4.20-5.40); White Blood Count 9.23 K/ul (4.8-10.8)
[2025-01-17 14:28] LABS: Alanine Aminotransferase 20.0 U/L (7-52); Albumin Level 4.1 gm/dl (3.4-5.0); Alkaline Phosphatase 210.0 U/L (34-104); Anion Gap 10.0 (3-11); Bilirubin,Total 0.5 mg/dl (0.2-1.0); Blood Urea Nitrogen 24.0 mg/dl (6-23); Calcium 10.7 mg/dl (8.6-10.3); Carbon Dioxide 26.0 mmol/L (21-32); Chloride 95.0 mmol/L (98-107); Creatinine Clr Calc Pharmacy 30.4 ml/min; Glucose 127.0 mg/dl (70-99(Fasting)); Magnesium 1.9 mg/dl (1.7-2.4); Potassium 5.0 mmol/L (3.5-5.1); Sodium 131.0 mmol/L (136-145); Total Protein 8.6 gm/dl (6.0-8.3)
[2025-01-17 14:30] LABS: INR 1.0 (0.9-1.1); Partial Thromboplastin Time 25 Seconds (21-31); Prothrombin Time 10.8 Seconds (9.0-12.0)
[2025-01-17 15:19] LABS: Appearance Urine Clear (Clear); Glucose Urine UA Negative (Negative)
--- NOTE | 2025-01-17 15:49 | Electrocardiogram Report ---
Test Reason : Blood Pressure : */* mmHG Vent. Rate : 88 BPM Atrial Rate : 88 BPM P-R Int : 232 ms QRS Dur : 82 ms QT Int : 372 ms P-R-T Axes : -20 70 20 degrees QTcB Int : 450 ms Sinus rhythm with 1st degree A-V block Poor R wave progression, consider anterior UT vs. lead placement vs. LVH Abnormal ECG When compared with ECG of 10-Dec-2023 12:32, Nonspecific T wave abnormality, improved in Anterior leads Confirmed by Andre Olsen ([id number]) on 01/17/2025 3:48:57 PM Referred By: Betsy Narvaez Confirmed By: Andre Olsen
[2025-01-17] MEDS ORDERED: IPRATROPIUM BROMIDE HFA INHALER INH PRN (16:09)
[2025-01-17] MEDS ORDERED: DOCUSATE SODIUM 100 MG CAP PO PRN (16:09)
--- NOTE | 2025-01-17 17:09 | Ultrasound Report ---
Clinical history: Acute renal injury Technique: Renal sonography was performed Findings: The kidneys are of normal size and echogenicity. The right kidney measures 11.3 cm in length and the left kidney measures 11 cm in length. There is no hydronephrosis or visualized hydroureter. No definite renal calculus or mass is seen. There is a 1.7 cm left renal cyst Impression: Left renal cyst Electronically signed by Crow Dial 01-17-2025 5:08 PM
[2025-01-17] MEDS: busPIRone 15 MG TAB PO SCH (20:19)
[2025-01-17] MEDS: LORazepam 1 MG TAB PO SCH (20:22)
[2025-01-17] MEDS: PRIMIDONE 50 MG TAB PO SCH (20:22)
[2025-01-17] MEDS: VORTIOXETINE HYDROBROMIDE 20 MG TAB PO SCH (20:22)
[2025-01-17] MEDS: CHOLECALCIFEROL 25 MCG (1000 UNITS) TAB PO SCH (20:23)
[2025-01-17] MEDS: MONTELUKAST SODIUM 10 MG TABLET PO SCH (20:24)
[2025-01-17] MEDS: GABAPENTIN 600 MG TAB PO SCH (20:24)
[2025-01-17] MEDS: GABAPENTIN 100 MG CAP PO SCH (20:24)
--- NOTE | 2025-01-17 23:43 | History & Physical Report ---
Date of Service January 17, 2025 Assessment & Plan (1) Acute hyponatremia: (2) Acute hypotension: (3) Acute dehydration: (4) LUZ (acute kidney injury): Plan Patient with generalized weakness and fatigue with history of breast cancer, Depression. Patient with hypotension, acute kidney injury. Patient is on large amount of hypotensive meds. will hold all of these medications and monitor her blood pressure. will check AM cortisol LUZ As above Hypertension Patient reports recently starting hypertensive medications due to being hypertensive 3-4 weeks ago. Patient report it was very high when started, will hold her meds for now due to her above symptoms and monitor. Depression Resume home meds [place] Resume home meds. Admission and Anticipated Discharge Date Admission Date: January 17, 2025 History of Present Illness Chief Complaint: weakness Primary Care Provider: Betsy Narvaez, DO 79 yo female with PMH of asthma, depression, vertigo, dyslipidemia, history of breast cancer, GERD, general anxiety disorder, hypertension, presents to the hospital with significant weakness. Patient was recently discharged from [facility] for recurrent falls and hypotension. Patient devloped a fver and was hypoxic. Patient was diagnosed with a peumonia which improved with antibiotics. Ptient was discharged home but continued to feel weak and was mainly in bed. Patient denied any diziness just that she would walk from her bed to the next room and then back. She reports this is not her normal state, which led the patient to be brought to the hospital. Allergies Allergy/AdvReac Type Severity Reaction Status Date / Time celecoxib Allergy Intermediate RASH,SWOLLEN Verified 01/14/25 10:24 FEET/HANDS albuterol AdvReac Intermediate CHEST PAIN Verified 01/14/25 10:24 oxycodone AdvReac Intermediate GI SYMPTOMS Verified 01/14/25 10:24 rosuvastatin AdvReac Intermediate MUSCLE Verified 01/14/25 10:24 PAIN/ABNORMAL LABS adhesive AdvReac Mild SOME TAPE Verified 01/14/25 10:24 BLISTERS-PAPER TAPE OK Scwiyvd-AMA-BnD Reductase AdvReac Muscle Pain Verified 01/14/25 10:24 Inhibitor [Ydsryen-Luf-Bch Reductase Inhibitor] Home Medications Medication Instructions Recorded Confirmed Type acetaminophen 500 mg tablet 1,000 mg (2 x 500 mg) PO Q6H PRN 11/29/18 01/17/25 Rx (Tylenol Extra Strength) pain/fever #360 tabs cholecalciferol (vitamin D3) 25 1,000 units PO HS #90 caps 11/29/18 01/17/25 Rx mcg (1,000 unit) capsule vortioxetine 20 mg tablet 20 mg PO HS #90 tabs 11/29/18 01/17/25 Rx (Trintellix) docusate sodium 100 mg capsule 100 mg PO BID PRN Constipation 03/30/19 01/17/25 History (Colace) gabapentin 600 mg tablet 600 mg PO TID 04/14/20 01/17/25 History lorazepam 1 mg tablet (Ativan) 1 mg PO BID anxiety 06/26/21 01/17/25 History primidone 50 mg tablet 200 mg PO QPM 04/08/23 01/17/25 History calcium 315 mg (as 1 tab PO DAILY 12/24/23 01/17/25 History citrate)-vitamin D3 6.25 mcg (250 unit) tablet (Citracal + Vitamin D Maximum) ipratropium bromide 17 2 puff inhalation Q6H PRN 05/05/24 01/17/25 Rx mcg/actuation HFA aerosol inhaler Shortness Of Breath Or Wheezing (Atrovent HFA) #12.9 grams triamterene 37.5 1 tab PO QAM #90 tabs 08/12/24 01/17/25 Rx mg-hydrochlorothiazide 25 mg tablet fluticasone propionate 50 2 spray intranasal DAILY #16 grams 10/18/24 01/17/25 Rx mcg/actuation nasal spray,suspension (Allergy Relief (fluticasone)) gabapentin 100 mg tablet 100 mg PO HS 10/19/24 01/17/25 History isosorbide mononitrate 60 mg 60 mg PO QAM #90 tabs 11/03/24 01/17/25 Rx tablet,extended release 24 hr montelukast 10 mg tablet 10 mg PO HS #90 tabs 11/03/24 01/17/25 Rx (Singulair) zoledronic acid 5 mg/100 mL in 0 ea IV YEARLY 11/11/24 01/17/25 History mannitol 5 %-water intravenous piggybck (Reclast) Breo Ellipta 200 mcg-25 mcg/dose 1 inh inhalation DAILY #60 ea 11/22/24 01/17/25 Rx powder for inhalation (fluticasone furoate-vilanterol) magnesium oxide 400 mg PO QAM #90 caps 11/22/24 01/17/25 Rx potassium chloride 20 mEq 20 meq PO DAILY #90 tabs 11/22/24 01/17/25 Rx tablet,extended release losartan 100 mg tablet 100 mg PO DAILY #90 tabs 11/23/24 01/17/25 Rx aspirin 81 mg tablet,delayed 81 mg PO QAM #90 tabs 12/13/24 01/17/25 Rx release (Adult Aspirin Regimen) oxycodone 5 mg tablet 5 mg PO Q6H PRN pain, severe 12/13/24 01/17/25 History nitroglycerin 0.4 mg sublingual 0.4 mg sublingual Q5M PRN Chest 12/14/24 01/17/25 Rx tablet (Nitrostat) Pain #20 tabs ondansetron HCl 4 mg tablet 4 mg PO Q6H 12/14/24 01/17/25 History tizanidine 4 mg tablet 6 mg PO HS 12/14/24 01/17/25 History amlodipine 10 mg tablet 10 mg PO DAILY #90 tabs 01/11/25 01/17/25 Rx hydralazine 25 mg tablet 25 mg PO QID #360 tabs 01/11/25 01/17/25 Rx torsemide 20 mg tablet 20 mg PO DAILY #90 tabs 01/11/25 01/17/25 Rx ferrous fumarate 325 mg (106 mg 325 mg PO DAILY 01/12/25 01/17/25 History iron) tablet omeprazole 40 mg capsule,delayed 40 mg PO BID #180 caps 01/12/25 01/17/25 Rx release bupropion HCl 200 mg tablet,12 hr 200 mg PO BID 01/17/25 01/17/25 History sustained-release buspirone 15 mg tablet 15 mg PO HS 01/17/25 01/17/25 History duloxetine 60 mg capsule,delayed 60 mg PO DAILY 01/17/25 01/17/25 History release evolocumab 140 mg/mL subcutaneous 140 mg subcut Q14D 01/17/25 01/17/25 History pen injector (Bob Sanchez) loratadine 10 mg tablet 10 mg PO DAILY 01/17/25 01/17/25 History multivitamin 1 tab PO DAILY 01/17/25 01/17/25 History primidone 50 mg tablet 50 mg PO DAILY 01/17/25 01/17/25 History primidone 50 mg tablet 50 mg PO QAM 01/17/25 01/17/25 History tizanidine 4 mg tablet 4 mg PO QAM 01/17/25 01/17/25 History Past Med/Surg History Problem List Thrombocytosis (Acute) Generalized weakness (Acute) Ambulatory dysfunction (Acute) Acute hyponatremia (Acute) Acute hypotension (Acute) Acute dehydration (Acute) LUZ (acute kidney injury) (Acute) Nocturnal hypoxia Elevated plasma metanephrines Keratosis Carotid artery stenosis Aortic valve sclerosis Mitral regurgitation Hypertension CAD (coronary artery disease) Prinzmetal's angina (Acute) Paroxysmal supraventricular tachycardia (Acute) Recurrent falls Lumbar spinal stenosis (Chronic) Moderate at L4-5 Spinal stenosis (Acute) Tremor (Acute) Diffuse myofascial pain syndrome (Chronic) Osteoarthritis of right shoulder Allergic rhinitis (Acute) Morbid obesity (Acute) Medical History Osteoporosis Statin myopathy PFO (patent foramen ovale) Hyperlipidemia Generalized anxiety disorder GERD without esophagitis Breast cancer Depression Asthma Prediabetes Syncope Surgical History H/O carpal tunnel repair S/P colonoscopy 02/10/2020 repeat 5yrs H/O breast reconstruction (~2011) Delayed left breast reconstruction Dr. Lino 01/31/2012 with TE 10/09/12 left breast reduction for symmetry, implant exchange right breast [place] 800 Smooth Round High Profile implant Dr. Lino 01/27/13 revision left breast reduction, right breast mound 02/2016 revision right axillary breast- Dr. Munroe Right NAC tattoo, last touch up 05/21/2019 [place] History of mastectomy S/P appendectomy History of cardiac cath H/O laminectomy S/P knee replacement Family History Father Heart disease Cancer Hypertension FH: deafness or hearing loss Cardiac disorder Prostate cancer Myocardial infarction Sister Hyperlipidemia Breast cancer Arthritis Thyroid disorder Colon cancer Cancer Colorectal cancer Brother Methicillin resistant Staphylococcus aureus infection Unknown Arthritis Mother Heart disease Osteoporosis Arthritis Cardiac disorder Lung disease COPD Sister Breast cancer Aunt Ovarian cancer Social History Smoking Status: Never smoker Tobacco Type: Cigarettes Age Started Using Tobacco: 13; Age Quit Using Tobacco: 41; packs per day: 0.25; Second Hand Exposure: No; Do You Dip or Chew Tobacco: No; Tobacco Cessation Education Requested by Patient: No Hx Alcohol Use: No Hx Substance Use: No Preferred Language: Maori Communication Ability: Effective Visual Impairment: No Limitations Hearing Ability: Normal 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 [employer] Required: No Beliefs That Will Affect Care: None marital status: Current Living Situation: Alone current occupational status: employed 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 How many Children do You have: 2 Other Information That Helps Us Care for You: No Feels Safe at Home: Yes Safety Concerns: Feels Safe At This Time Childhood Exposure to Second-Hand Smoke: Yes (Both parents) Diet: regular Diet Comment: Regular diet caffeine: Yes (Diet Pepsi) during the past year weight has: remained stable Dental Care, Regularly: Yes Physical Activity Frequency: Does not Exercise Seatbelt Use: always Sunscreen Use: Yes Gender Identity: Female Assistive Devices: Walker Review of Systems Constitutional: + fatigue and + weakness; no fever and n o body aches Eyes: no blind spots Ear, Nose, Mouth, Throat: no ear pain, no tinnitus and no dizziness Respiratory: no cough and no dyspnea Cardiovascular: no chest pain Gastrointestinal: no abdominal pain Genitourinary: no dysuria Musculoskeletal: no back pain Integumentary: no rash Neurologic: + gait abnormality and + generalized wea kness Psychiatric: no behavioral changes Endocrine: + fatigue Hematologic / Lymphatic: no easy bleeding Allergy / Immunological: no GI upset with certain foods Physical Exam Constitutional: WD/WN, vitals as above Eyes: PERRL, conjunctivae normal, anicteric sclerae ENMT: external ear and nose normal, oropharynx normal Neck: trachea midline, no thyromegaly Respiratory: normal respiratory effort, lungs clear to auscultation Cardiovascular: RRR, no murmur, no edema Gastrointestinal (Abdomen): normal bowel sounds, soft, nontender, no hepatosplenomegaly Musculoskeletal: no cyanosis or clubbing, extremities motor strength 5/5 Skin: no rashes, warm and dry Neurologic: PERRL, EOMI, accommodation nl, no face palsy, no dysarthria Psychiatric: A+Ox3, euthymic affect Lymphatic: no cervical or axillary lymphadenopathy Results & Data Results & Data Vital Signs (Past 12 Hours) Vital Signs Temp Pulse Pulse Resp BP BP Pulse Ox 01/17/25 22:58 36.6 C 77 18 99/54 L 97 01/17/25 18:49 36.6 C 97 H 18 130/78 95 01/17/25 17:52 01/17/25 17:14 81 20 145/61 H 94 01/17/25 16:02 84 20 148/68 H 94 01/17/25 16:02 84 20 97 01/17/25 15:32 69 20 127/62 93 01/17/25 14:30 121/69 01/17/25 14:30 77 19 121/69 96 01/17/25 14:06 69 15 97 01/17/25 14:00 109/57 L 01/17/25 13:45 77 17 100/51 L 91 01/17/25 13:32 78 01/17/25 13:31 105/58 L 01/17/25 13:28 79 20 95 01/17/25 13:24 106/54 L 01/17/25 13:03 36.6 C 97 H 20 84/49 L 95 O2 Del Method 01/17/25 22:58 Room Air 01/17/25 18:49 Room Air 01/17/25 17:52 Room Air 01/17/25 17:14 Room Air 01/17/25 16:02 Room Air 01/17/25 16:02 Room Air 01/17/25 15:32 Room Air 01/17/25 14:30 01/17/25 14:30 01/17/25 14:06 01/17/25 14:00 01/17/25 13:45 01/17/25 13:32 01/17/25 13:31 01/17/25 13:28 Room Air 01/17/25 13:24 01/17/25 13:03 Room Air PG Care Time/CCT Total # of Minutes Spent Total Time Spent with Patient: Total time spent is greater than 50% in coordination of care (as documented) at patient's floor/unit and/or counseling patient: Coding Level of Care Code 88257 INT INP/OBS CARE 3/75MIN Diagnoses Acute hyponatremia E87.1 Acute hypotension I95.9 Acute dehydration E86.0 LUZ (acute kidney injury) N17.9
[2025-01-18 07:23] LABS: Hematocrit (blood only) 31.5 % (37.0-47.0); Hemoglobin 10.4 g/dl (12.0-16.0); Mean Corpuscular Hemoglobin 29.9 pg (25.0-34.0); Mean Corpuscular Volume 90.5 fL (80.0-100.0); Platelet Count 555 K/uL (130-400); RDW Standard Deviation 42.7 fL (36.4-46.3); Red Blood Count 3.48 M/uL (4.20-5.40); White Blood Count 6.70 K/ul (4.8-10.8)
[2025-01-18 07:51] LABS: Anion Gap 7.0 (3-11); Blood Urea Nitrogen 23.0 mg/dl (6-23); Calcium 9.8 mg/dl (8.6-10.3); Carbon Dioxide 29.0 mmol/L (21-32); Chloride 96.0 mmol/L (98-107); Creatinine Clr Calc Pharmacy 41.1 ml/min; Glucose 126.0 mg/dl (70-99(Fasting)); Magnesium 2.0 mg/dl (1.7-2.4); Potassium 4.8 mmol/L (3.5-5.1); Sodium 132.0 mmol/L (136-145)
[2025-01-18] MEDS ORDERED: LOSARTAN POTASSIUM 50 MG TAB PO SCH (09:00)
[2025-01-18] MEDS ORDERED: TORSEMIDE 20 MG TAB PO SCH (09:00)
[2025-01-18] MEDS ORDERED: TRIAMTERENE/HCTZ 37.5/25MG TAB PO SCH (09:00)
[2025-01-18] MEDS: FLUTICASONE PROPIONATE NA SPR 16 GM BTL NAE SCH (09:37)
[2025-01-18] MEDS: FERROUS SULFATE 325 MG TAB PO SCH (09:40)
[2025-01-18] MEDS: PRIMIDONE 50 MG TAB PO SCH ×2 (09:41→12:44)
[2025-01-18] MEDS: ISOSORBIDE MONO EXTENDED REL 60 MG TABCR PO SCH (09:42)
[2025-01-18] MEDS: CALCIUM 600MG + VIT D 400 IU TAB PO SCH (09:42)
[2025-01-18] MEDS: ASPIRIN 81 MG ECTAB PO SCH (09:42)
[2025-01-18] MEDS: MULTIVITAMIN TAB PO SCH (09:43)
[2025-01-18] MEDS: LORATADINE 10 MG TAB PO SCH (09:43)
[2025-01-18] MEDS: FLUTICASONE/VILANTEROL 200/25MCG 14 PUFFS/INHALER INH SCH (09:43)
[2025-01-18] MEDS: MAGNESIUM OXIDE 400 MG TAB PO SCH (09:43)
[2025-01-18] MEDS: POTASSIUM CHLORIDE CRTAB 20 MEQ TABCR PO SCH (09:52)
--- NOTE | 2025-01-18 23:03 | Hospitalist Progress Note ---
Date of Service January 18, 2025 Assessment & Plan (1) Acute hyponatremia: (2) Acute hypotension: (3) Acute dehydration: (4) LUZ (acute kidney injury): Plan Patient with generalized weakness and fatigue with history of breast cancer, Depression. Patient with hypotension, acute kidney injury. Generalized weakness Patient is on large amount of hypotensive meds. will hold all of these medications and monitor her blood pressure. AM cortisol was in normal range LUZ Improved, likely iatrogenic Hypertension Patient reports recently starting hypertensive medications due to being hypertensive 3-4 weeks ago. Patient report it was very high when started, will hold her meds for now due to her above symptoms and monitor. BP has eugenio slightly on the higher side, will monitor May need to give lower dose of hydralazine, if she presents with rebound hypertension. Depression Resume home meds Asthma Resume home meds. Admission and Anticipated Discharge Date Admission Date: January 17, 2025 Subjective Patient reports feeling slightly better today. She feels less fatigued. Physical Exam Constitutional: WD/WN, vitals as above Eyes: PERRL, conjunctivae normal, anicteric sclerae ENMT: external ear and nose normal, oropharynx normal Neck: trachea midline, no thyromegaly Respiratory: normal respiratory effort, lungs clear to auscultation Cardiovascular: RRR, no murmur, no edema Gastrointestinal (Abdomen): normal bowel sounds, soft, nontender, no hepatosplenomegaly Musculoskeletal: no cyanosis or clubbing, extremities motor strength 5/5 Skin: no rashes, warm and dry Neurologic: PERRL, EOMI, accommodation nl, no face palsy, no dysarthria Psychiatric: A+Ox3, euthymic affect Lymphatic: no cervical or axillary lymphadenopathy Results & Data Results & Data Vital Signs (Past 12 Hours) Vital Signs Temp Pulse Pulse Resp BP Pulse Ox O2 Del Method 01/18/25 19:58 37.0 C 86 19 148/76 H 92 Room Air 01/18/25 15:44 36.3 C L 81 18 144/73 H 94 Room Air 01/18/25 14:22 76 01/18/25 12:27 75 01/18/25 12:20 Room Air 01/18/25 12:06 36.7 C 79 18 122/70 93 Room Air PG Care Time/CCT Total # of Minutes Spent Total Time Spent with Patient: Total time spent is greater than 50% in coordination of care (as documented) at patient's floor/unit and/or counseling patient: Coding Level of Care Code 59950 SUB INP/OBS CARE 350MIN Diagnoses Acute hyponatremia E87.1 Acute hypotension I95.9 Acute dehydration E86.0 LUZ (acute kidney injury) N17.9
[2025-01-19 06:11] LABS: Hematocrit (blood only) 31.3 % (37.0-47.0); Hemoglobin 10.6 g/dl (12.0-16.0); Mean Corpuscular Hemoglobin 30.6 pg (25.0-34.0); Mean Corpuscular Volume 90.5 fL (80.0-100.0); Platelet Count 525 K/uL (130-400); RDW Standard Deviation 41.9 fL (36.4-46.3); Red Blood Count 3.46 M/uL (4.20-5.40); White Blood Count 5.67 K/ul (4.8-10.8)
[2025-01-19 06:26] LABS: Anion Gap 6.0 (3-11); Blood Urea Nitrogen 16.0 mg/dl (6-23); Calcium 10.3 mg/dl (8.6-10.3); Carbon Dioxide 29.0 mmol/L (21-32); Chloride 97.0 mmol/L (98-107); Creatinine Clr Calc Pharmacy 50.6 ml/min; Glucose 128.0 mg/dl (70-99(Fasting)); Iron 69.0 mcg/dl (35-150); Potassium 4.4 mmol/L (3.5-5.1); Sodium 132.0 mmol/L (136-145); Total Iron Binding Cap Calc 260.0 mcg/dl (250-450); Transferrin 186.0 mg/dl (200-360); Transferrin (FE) Percent Satur 27.0 % (15-50)
--- NOTE | 2025-01-19 08:31 | Hospitalist Progress Note ---
Date of Service January 19, 2025 Assessment & Plan (1) Polypharmacy: (2) Generalized weakness: (3) Ambulatory dysfunction: (4) Thrombocytosis: (5) Frailty syndrome in geriatric patient: Plan In summary this is a 79-year-old female who presented to [facility] due to symptomatic hypotension, the patient recently had multiple medications changed within the past 6 weeks in the outpatient setting due to persistently uncontrolled hypertension. #Symptomatic hypotension // Generalized weakness // Geriatric frailty Improved with holding the patient's home antihypertensives; we will resume the patient's amlodipine on 01/19 as they are exhibiting elevated pressures in the past day and a half; slowly add additional agents as needed based on the patient's blood pressure response, prioritizing medications that treat multiple conditions given the patient's polypharmacy as detailed below; PT/OT have been consulted and recommend acute skilled rehab at discharge to prevent recurrent hospitalization, to which the patient is agreeable #Polypharmacy Patient is on greater than 12 medications at home multiple of which are centrally acting, increasing their risk for fall and future iatrogenic injury; Of these medications, most of them can cause withdrawal syndromes, therefore do not recommend de-escalation of these medications during her hospitalization however did confer this concern to the patient, and strongly encouraged him to discuss with her primary care provider to reduce the risk of future dependence, and iatrogenic injury Admission and Anticipated Discharge Date Admission Date: January 17, 2025 Subjective Ms. Balderas is a 79-year-old female whose active medical conditions include essential hypertension, coronary atherosclerotic disease with Prinzmetal angina, osteoarthritis of multiple joints bilaterally, polypharmacy, geriatric frailty among other chronic medical conditions who presented to the [facility] on 01/17 due to symptomatic hypotension and was subsequently admitted for further treatment and care. The patient has had multiple hospi talizations in the past several months, most recently at an external hospital system within the past 3 weeks at which time acute rehab was recommended however the patient declined and returned home. Review of Systems Review of Systems: Review of constitutional, cardiovascular, pulmonary, gastrointestinal, genitourinary, neurologic, musculoskeletal systems was overall unremarkable Physical Exam Physical Exam: General: Elderly female in no acute distress Vital Signs: Reviewed HEENT: Moist mucous membranes; pupils equally round reactive to light, extraocular motion intact Pulmonary: Diminished air movement in the posterior lobe bases bilaterally without associated adventitious lung sound, remaining lung rossi are clear to auscultation; symmetrically reduced chest wall rise secondary to body habitus Cardiovascular: Regular rate and rhythm with grade 2/6 systolic murmur best heard in the right second intercostal space parasternally; bilateral radial pulse 2+; 1+ pitting edema of the lower extremities bilaterally distal to the mid leg Gastrointestinal: Soft, nonprotuberant Neurologic: Cranial nerves II through XII grossly intact; no discernible focal weakness or paresthesia Results & Data Results & Data Vital Signs (Past 12 Hours) Vital Signs Temp Pulse Pulse Resp BP Pulse Ox O2 Del Method 01/19/25 03:41 36.6 C 74 19 153/83 H 92 Room Air 01/18/25 21:57 78 PG Care Time/CCT Total # of Minutes Spent Total Time Spent with Patient: Total time spent is greater than 50% in coordination of care (as documented) at patient's floor/unit and/or counseling patient: Coding Level of Care Code 92501 SUB INP/OBS CARE 05/22MIN Diagnoses Polypharmacy Z79.899 Generalized weakness R53.1 Ambulatory dysfunction R26.2 Thrombocytosis D75.839 Frailty syndrome in geriatric patient R54
[2025-01-19] MEDS: ENOXAPARIN INJ 40 MG/0.4 ML SYR SQ SCH (09:40)
[2025-01-19] MEDS: EVOLOCUMAB 140 MG/ML SQ SCH (15:27)
[2025-01-19 22:11] VITALS: TEMP 98.2
[2025-01-20 07:17] VITALS: BP 143/80; PULSE 72; RESP 16; O2SAT 93
--- NOTE | 2025-01-20 07:25 | Hospitalist Progress Note ---
Date of Service January 20, 2025 Assessment & Plan (1) Polypharmacy: (2) Generalized weakness: (3) Ambulatory dysfunction: (4) Thrombocytosis: (5) Frailty syndrome in geriatric patient: Plan In summary this is a 79-year-old female who presented to [facility] due to symptomatic hypotension, the patient recently had multiple medications changed within the past 6 weeks in the outpatient setting due to persistently uncontrolled hypertension. #Symptomatic hypotension // Generalized weakness // Geriatric frailty Improved with holding the patient's home antihypertensives; we will resume the patient's amlodipine on 01/19 as they are exhibiting elevated pressures in the past day and a half; slowly add additional agents as needed based on the patient's blood pressure response, prioritizing medications that treat multiple conditions given the patient's polypharmacy as detailed below; PT/OT have been consulted and recommend acute skilled rehab at discharge to prevent recurrent hospitalization, to which the patient is agreeable #Polypharmacy Patient is on greater than 12 medications at home multiple of which are centrally acting, increasing their risk for fall and future iatrogenic injury; Of these medications, most of them can cause withdrawal syndromes, therefore do not recommend de-escalation of these medications during her hospitalization however did confer this concern to the patient, and strongly encouraged him to discuss with her primary care provider to reduce the risk of future dependence, and iatrogenic injury Admission and Anticipated Discharge Date Admission Date: January 17, 2025 Subjective Ms. Balderas is a 79-year-old female whose active medical conditions include essential hypertension, coronary atherosclerotic disease with Prinzmetal angina, osteoarthritis of multiple joints bilaterally, polypharmacy, geriatric frailty among other chronic medical conditions who presented to the [facility] on 01/17 due to symptomatic hypotension and was subsequently admitted for further treatment and care. The patient has had multiple hospi talizations in the past several months, most recently at an external hospital system within the past 3 weeks at which time acute rehab was recommended however the patient declined and returned home. Physical Exam Physical Exam: General: Elderly female in no acute distress Vital Signs: Reviewed HEENT: Moist mucous membranes; pupils equally round reactive to light, extraocular motion intact Pulmonary: Diminished air movement in the posterior lobe bases bilaterally without associated adventitious lung sound, remaining lung rossi are clear to auscultation; symmetrically reduced chest wall rise secondary to body habitus Cardiovascular: Regular rate and rhythm with grade 2/[address] in the right second intercostal space parasternally; bilateral radial pulse 2+; 1+ pitting edema of the lower extremities bilaterally distal to the mid leg Gastrointestinal: Soft, nonprotuberant Neurologic: Cranial nerves II through XII grossly intact; no discernible focal weakness or paresthesia Results & Data Results & Data Vital Signs (Past 12 Hours) Vital Signs Temp Pulse Resp BP Pulse Ox O2 Del Method O2 Flow Rate 01/20/25 07:14 36.8 C 72 16 143/80 H 93 Room Air 01/19/25 22:00 Room Air, Nasal Cannula 2 01/19/25 22:00 36.8 C 75 18 155/68 H 92 Room Air 01/19/25 19:57 36.9 C 83 18 122/64 94 Room Air PG Care Time/CCT Total # of Minutes Spent Total Time Spent with Patient: Total time spent is greater than 50% in coordination of care (as documented) at patient's floor/unit and/or counseling patient: Coding Diagnoses Polypharmacy Z79.899 Generalized weakness R53.1 Ambulatory dysfunction R26.2 Thrombocytosis D75.839 Frailty syndrome in geriatric patient R54
--- NOTE | 2025-01-20 15:53 | Discharge Summary ---
Discharge Summary Date of Service January 20, 2025 Principal Dx & Hospital Course #1 = Principal Diagnosis (1) Polypharmacy: (2) Generalized weakness: (3) Ambulatory dysfunction: (4) Thrombocytosis: (5) Frailty syndrome in geriatric patient: Plan In summary this is a 79-year-old female who presented to [facility] due to symptomatic hypotension, the patient recently had multiple medications changed within the past 6 weeks in the outpatient setting due to persistently uncontrolled hypertension. #Symptomatic hypotension // Generalized weakness // Geriatric frailty Improved with holding the patient's home antihypertensives; resumed the patient's amlodipine on 01/19; will resume triamterene at discharge without additional diuretic therapies to be further evaluated in the outpatient setting with serial ambulatory blood pressure monitoring #Polypharmacy Patient is on greater than 12 medications at home multiple of which are centrally acting, increasing their risk for fall and future iatrogenic injury; Of these medications, most of them can cause withdrawal syndromes, therefore do not recommend de-escalation of these medications during her hospitalization however did confer this concern to the patient, and strongly encouraged them to discuss with her primary care provider to reduce the risk of future dependence, and iatrogenic injury Admission HPI Per Admitting Provider 79 yo female with PMH of asthma, depression, vertigo, dyslipidemia, history of breast cancer, GERD, general anxiety disorder, hypertension, presents to the hospital with significant weakness. Patient was recently discharged from [facility] for recurrent falls and hypotension. Patient devloped a fver and was hypoxic. Patient was diagnosed with a peumonia which improved with antibiotics. Ptient was discharged home but continued to feel weak and was mainly in bed. Patient denied any diziness just that she would walk from her bed to the next room and then back. She reports this is not her normal state, which led the patient to be brought to the hospital. Discharge Exam General: Elderly female in no acute distress Vital Signs: Reviewed HEENT: Moist mucous membranes; pupils equally round reactive to light, extraocular motion intact Pulmonary: Diminished air movement in the posterior lobe bases bilaterally without associated adventitious lung sound, remaining lung rossi are clear to auscultation; symmetrically reduced chest wall rise secondary to body habitus Cardiovascular: Regular rate and rhythm with grade 2/6 systolic murmur best heard in the right second intercostal space parasternally; bilateral radial pulse 2+; 1+ pitting edema of the lower extremities bilaterally distal to the mid leg Gastrointestinal: Soft, nonprotuberant Neurologic: Cranial nerves II through XII grossly intact; no discernible focal weakness or paresthesia Discharge Plan Discharge Items Patient Disposition: Home - Home Health Services Reason For Visit: HYPOTENSION/DIZZINESS/LUZ Discharge Diagnosis: Iatrogenic hypotension Condition on Discharge: Fair Activity: Per Instructions section Non-emergency contact: Primary Care Provider Call non-emergency contact if: you have any medication questions and your symptoms worsen Follow-up/Referrals: Betsy Narvaez DO [Primary Care Provider] - 01/27/25 10:00 am Diet: Heart Healthy Fluids: 2000ml (8 cups) Ambulatory Orders: Renal Function Panel (Routine) Timeframe: 1 Week Location: Determined by Patient Ordered By: Antonio Sawyer Attending Provider Instructions: You were admitted to [facility] for symptomatic hypotension, most likely be consequential of rapidly escalating antihypertensives in the outpatient setting. With regard to your antihypertensive regimen, current medications that have been continued during your hospitalization include amlodipine. You are additionally prescribed isosorbide mononitrate, which can have an impact on your blood pre ssure though this effect is often minimal. As your blood pressure still slightly elevated prior to your discharge, we will resume triamterene 37.5 mg, not as a combination medication as you were prescribed previously. I would recommend against additional diuretic therapies as primary management of the patient's blood pressure. Instead, would recommend initiation of an EROS inhibitor or ARB. Furthermore would recommend against any additional vasodilating agents as the patient is already prescribed isosorbide mononitrate, additional vasodilators may cause significant orthostatic symptomatology (which frankly may have led to the patient's admission) as well as increased side effects including lower extremity and abdominal swelling/edema. Thank you for choosing [facility] as your healthcare provider. Pending Studies at Discharge: No Stand-Alone Forms: My [facility] Medications and DC Order Prescriptions: New triamterene 50 mg capsule 50 mg PO Q OTHER DAY 30 Days Qty: 15 0RF Continued lorazepam [Ativan] 1 mg tablet 1 mg PO BID Atrovent HFA 17 mcg/actuation HFA aerosol inhaler 2 puff INH Q6H PRN (Reason: Shortness Of Breath Or Wheezing) Qty: 12.9 0RF isosorbide mononitrate 60 mg tablet extended release 24 hr 60 mg PO QAM Qty: 90 3RF montelukast [Singulair] 10 mg tablet 10 mg PO HS Qty: 90 3RF magnesium oxide 400 mg magnesium capsule 400 mg PO QAM Qty: 90 3RF Patient Comments: Unable to verify OTC meds at this date/time. 01/17/25 Breo Ellipta 200-25 mcg/dose blister with device 1 inh INH DAILY Qty: 60 2RF losartan 100 mg tablet 100 mg PO DAILY Qty: 90 3RF amlodipine 10 mg tablet 10 mg PO DAILY Qty: 90 3RF omeprazole 40 mg capsule,delayed release(DR/EC) 40 mg PO BID Qty: 180 3RF acetaminophen [Tylenol Extra Strength] 500 mg tablet 1,000 mg PO Q6H PRN (Reason: pain/fever) Qty: 360 3RF Patient Comments: Unable to verify OTC meds at this date/time. 01/17/25 cholecalciferol (vitamin D3) 1,000 unit capsule 1,000 units PO HS Qty: 90 3RF Patient Comments: Unable to verify OTC meds at this date/time. 01/17/25 Trintellix 20 mg tablet 20 mg PO HS Qty: 90 3RF primidone 50 mg tablet 200 mg PO QPM Rx Instructions: 50 mg orally take 1 tablet in the AM, 1 tablet in the afternoon and 4 tablets in the evening; gabapentin 100 mg tablet 100 mg PO HS calcium citrate-vitamin D3 [Citracal + D Maximum] 315 mg-6.25 mcg (250 unit) tablet 1 tab PO DAILY Patient Comments: Unable to verify OTC meds at this date/time. 01/17/25 docusate sodium [Colace] 100 mg capsule 100 mg PO BID PRN (Reason: Constipation) Patient Comments: Unable to verify OTC meds at this date/time. 01/17/25 gabapentin 600 mg tablet 600 mg PO TID zoledronic lowp-[id number] [Reclast] 5 mg/100 mL piggyback 0 ea IV YEARLY Patient Comments: Unable to verify w/ pt at this date/time. 01/17/25 nitroglycerin [Nitrostat] 0.4 mg tablet, sublingual 0.4 mg SL Q5M PRN (Reason: Chest Pain) Qty: 20 3RF oxycodone 5 mg tablet 5 mg PO Q6H PRN (Reason: pain, severe) Patient Comments: Confirmed w/ patient and on [facility] dc summary 12/13/24 aspirin [Adult Aspirin Regimen] 81 mg tablet,delayed release (DR/EC) 81 mg PO QAM Qty: 90 3RF Patient Comments: Unable to verify OTC meds at this date/time. 01/17/25 ferrous fumarate 325 mg (106 mg iron) tablet 325 mg PO DAILY Patient Comments: Unable to verify OTC meds at this date/time. 01/17/25 multivitamin Tablet 1 tab PO DAILY Patient Comments: Unable to verify OTC meds at this date/time. 01/17/25 primidone 50 mg tablet 50 mg PO QAM Rx Instructions: TAKE 1 TABLET IN THE MORNING, 1 AT NOON, AND 4 AT BEDTIME primidone 50 mg tablet 50 mg PO DAILY Rx Instructions: TAKE 1 TABLET IN THE MORNING, 1 AT NOON, AND 4 AT BEDTIME tizanidine 4 mg tablet 4 mg PO QAM bupropion HCl 200 mg tablet sustained-release 12 hr 200 mg PO BID duloxetine 60 mg capsule,delayed release(DR/EC) 60 mg PO DAILY loratadine 10 mg Tablet 10 mg PO DAILY Patient Comments: Unable to verify OTC meds at this date/time. 01/17/25 Repatha SureClick 140 mg/mL pen injector 140 mg subcut Q14D Held potassium chloride 20 mEq tablet extended release 20 meq PO DAILY Qty: 90 3RF Hold Instructions: Resume on 02/02/25. Hold until seen by PCP; given we have stopped several potassium-wasting medications and resumed a potassium-sparing medication, recommend holding to determine need for continued supplementation torsemide 20 mg tablet 20 mg PO DAILY Qty: 90 3RF Hold Instructions: Resume on 02/02/25. Discuss continued use with PCP tizanidine 4 mg tablet 6 mg PO HS Hold Instructions: Resume on 02/02/25. Discuss use at bedtime with PCP give risk of harm from polypharmacy Discontinued triamterene-hydrochlorothiazid 37.5-25 mg tablet 1 tab PO QAM Qty: 90 3RF fluticasone propionate [Allergy Relief (fluticasone)] 50 mcg/actuation spray,suspension 2 spray intranasal DAILY Qty: 16 0RF Patient Comments: Unable to verify OTC meds at this date/time. 01/17/25 Rx Instructions: administer into each nostril hydralazine 25 mg tablet 25 mg PO QID Qty: 360 3RF Rx Instructions: Take 1 Tablet by mouth in the morning and 1 Tablet at noon and 1 Tablet in the evening and 1 Tablet before bedtime. ondansetron HCl 4 mg tablet 4 mg PO Q6H buspirone 15 mg tablet 15 mg PO HS Discharge Orders: Discharge Order (Routine); Ordered 01/20/25 Ordered By: Antonio Francois Admission Data Admit Date/Time: 01/17/25 15:40 Attending Provider: Antonio Francois Admit Provider: Etienne Bennett Primary Care Provider: Betsy Narvaez Other Providers: Raquel Vences; Etienne Bennett; [facility],Home Healthcare Other Interventions: Discharge Summary Assessment (RN) Last Done: 01/20/25 10:37 Hospital Stay Data Consultations 01/17/25 15:22 ED Decision to Admit Stat Diagnostic Imagining Performed 01/17/25 14:33 US Renal Bladder [US renal/blad retro comp] Stat Pending Results Patient Have Any Pending Studies at Discharge: No Discharge Instructions Given to Patient (Per Discharging Provider) You were admitted to [facility] for symptomatic hypotension, most likely be consequential of rapidly escalating antihypertensives in the outpatient setting. With regard to your antihypertensive regimen, current medications that have been continued during your hospitalization include amlodipine. You are additionally prescribed isosorbide mononitrate, which can have an impact on your blood pressure though this effect is often minimal. As your blood pressure still slightly elevated prior to your discharge, we will resume triamterene 37.5 mg, not as a combination medication as you were prescribed previously. I would recommend against additional diuretic therapies as primary management of the patient's blood pressure. Instead, would recommend initiation of an EROS inhibitor or ARB. Furthermore would recommend against any additional vasodilating agents as the patient is already prescribed isosorbide mononitrate, additional vasodilators may cause significant orthostatic symptomatology (which frankly may have led to the patient's admission) as well as increased side effects including lower extremity and abdominal swelling/edema. Thank you for choosing [facility] as your healthcare provider. Total Time Total Time Spent Total Time Spent (In Minutes): I personally spent 65 minutes in the coordination the patient's discharge including a peer to peer review for possible acute rehabilitation/SNF placement which was declined, discussion of this at bedside with the patient, my review systems, physical exam, and coordination the patient's discharge with home health in addition to management of their polypharmacy Coding Level of Care Code 42730 INP/OBS DISCH >30 MIN Diagnoses Polypharmacy Z79.899 Generalized weakness R53.1 Ambulatory dysfunction R26.2 Thrombocytosis D75.839 Frailty syndrome in geriatric patient R54
== END 2025-01-20 12:07 | disposition home health service (06) | DRG 312 ==
LOC: ED 12:58 → SUATTDRO 15:40 → 4W 15:40 → 3W 01-19 21:49